=== PATIENT | female | born 1935 | race Caucasian/White ===

== ENCOUNTER 2017-07-16 16:29 | Inpatient (IN) | payer MEDICARE, OTHER ==
[~2017-07-16] VITALS: Ht 160 cm; Wt 74.8 kg
[~2017-07-16 16:29] MED LIST: ACE3 PO; ACE325 PO; AMLO-1 PO; AMLO2.5T74 PO; ASPI-1471 PO; ASPI-715 PO; ASPI81TA32 PO; ATOR40TA69 PO; AUG875 PO; CA C1TAB10 PO; CALC200 PO; CALC600T72 PO; CEPH-13 PO; CEPH250C37 PO; CHOL10005 PO; CIPR-344 PO; CIPR-345 PO; FISH OIL1 CAP PO; FLU IM; FLU45SYR17 IM; FOL1 PO; FURO-45 PO; FURO-47 PO; GLUC-198 PO; GLUC500C29 PO; HYDR-385 PO; HYDR12.558 PO; LOR5 PO; MULT-977 PO; NIT4 SL; NITR-1 PO; NITR-105 PO; PNEU0.5D3 IM; POTA20TA10 PO; RIVA15TA PO; RIVA20TA PO; ROS10 PO; SIMV-54 PO; SPIR1TAB26 PO; SPIR1TAB28 PO; SPIR25TA78 PO; SULF-198 PO; TOLT2CAP7 PO; VESICARE; WARF-12 PO; [UNRECOGNIZED DRUG - CODE] PO
--- NOTE | 2017-07-16 17:21 | ER Report ---
History and Physical Time Seen By MD: 17:00 Hx. of Stated Complaint: PATIENT HAS BEEN GETTING INCREASINGLY CONFUSED AND FORGETFUL AND WEAK (ORESTES GRAY MD) Time Seen By MD: 16:52 (LAWRENCE ISRAEL MD) HPI/ROS CC: Confusion HPI: 82-year-old female with a past medical history of hyperparathyroidism, hypertension, lower leg edema chronic, recurrent UTIs, DVTs, on Zeralto. Patient presents to the emergency department POV from the [place] [facility] for increased confusion over the last 24-48 hours. She also had a recent fall approximately 1 week ago. She is somewhat a poor historian but her granddaughter has related that she is had increased confusion but no nausea vomiting, chest pain chest pressure, she's been eating and continues to ambulate with her walker. Patient denies any pain at this time. It is hard to get any more information from the patient. ROS: 12 point review of systems essentially negative other than what's mentioned in history of present illness. NURSES AND OLD MEDICAL RECORDS: Reviewed PMH: Reviewed SURGICAL HX: Reviewed FAMILY HX: Noncontributory SOCIAL HX: Patient was in a [place] [facility] as she denies any smoking alcohol or illicit drugs. VITAL SIGNS: Reviewed CONSTITUTIONAL: 82-year-old female in minimal distress but is slightly confused. She does not know the date or place. PHYSICAL EXAM: HEENT: Pupils equal round reactive to light and accommodate, EOMI, tympanic membranes pearly white umbo present with good light reflex. Lips dry mucous membranes moist gums nonbleeding uvula midline and rises equally with phonation, oropharynx noninjected, teeth intact. NECK: Neck supple, thyroid not appreciated, anterior and posterior cervical lymphadenopathy not appreciated. Trachea midline and rises equally with phonation. CARDIAC: S1-S2 irregularly irregular rate rhythm no murmurs rubs or gallops. LUNGS: Lungs clear bilaterally posteriorly in all y[place]. Good air movement. ABDOMEN: Abdomen soft, nondistended, bowel sounds active in all 4 quadrants, no bruits noted, no CVA tenderness. MUSCULOSKELETAL: Strength 5 out of 5 x 4 extremities, no deformities noted. NEUROLOGIC: Patient alert and oriented to self but not date or place. (ORESTES GRAY MD) HPI/ROS CHIEF COMPLAINT: Fall HISTORY OF PRESENT ILLNESS: 2 days ago, associated with increased weakness and lightheadedness. No black or bloody stools. No urinary symptoms. Denies chest pain or shortness of breath. REVIEW OF SYSTEMS: Constitutional: No fever, no chills. Eyes: No discharge. ENT: No sore throat. Cardiovascular: No chest pain, no palpitations. Respiratory: No cough, no shortness of breath. Gastrointestinal: No abdominal pain, no vomiting. Genitourinary: No hematuria. Musculoskeletal: No back pain. Skin: No rashes. Neurological: No headache. (LAWRENCE ISRAEL MD) Allergies: Coded Allergies: No Known Allergies (Verified Allergy, Mild, 11/06/10) Home Meds Active Scripts Atorvastatin Calcium (ATORVASTATIN CALCIUM) 40 Mg Tablet, 1 TAB PO QDAY, #9999 TAB Prov:MARIANGEL DOLL MD 11/11/16 Spironolact/Hydrochlorothiazid (SPIRONOLACTONE-HCTZ 25-25 TAB) 1 Each Tablet, 1 TAB PO QAM, #90 TAB 3 Refills Prov:MARIANGEL DOLL MD 08/19/16 Rivaroxaban 20 Mg (XARELTO 20 MG) 20 Mg Tablet, 1 TAB PO DAILY, #90 TAB 3 Refills Prov:MARIANGEL DOLL MD 08/19/16 Sulfamethoxazole/Trimet 800-160 Mg Tab (BACTRIM DS TABLET) 1 Each Tablet, 1 TAB PO 3XW, #36 TAB 3 Refills Take three times a week. Prov:MARIANGEL DOLL MD 08/19/16 Reported Medications Cholecalciferol (Vitamin D3) (VITAMIN D3) 1,000 Unit Tablet, 1000 UNIT PO QDAY 05/19/14 Ca Carbonate/Vitamin D3/Vit K (Citracal Soft Chew) 1 Each Tab.chew, 1 TAB PO QDAY 05/19/14 Hx Smoking: Yes (55 yrs ago) Smoking Status: Never Smoker Hx Substance Use Disorder: No Hx Alcohol Use: No (ORESTES GRAY MD) Constitutional Vital Sign - Last 24 Hours 07/16/17 07/16/17 07/16/17 07/16/17 16:52 16:54 16:59 17:00 Temp 97.8 Pulse 70 67 Resp 17 B/P (MAP) 131/53 (79) 131/53 132/40 (70) Pulse Ox 96 96 O2 Delivery Room Air 07/16/17 07/16/17 07/16/1717 17:29 17:30 17:59 18:00 Pulse 67 69 B/P (MAP) 132/43 (72) 114/40 (64) Pulse Ox 97 96 07/16/17 07/16/17 07/16/17 07/16/17 18:05 18:30 18:35 18:45 Pulse 70 65 65 Resp 16 B/P (MAP) 117/41 (66) Pulse Ox 94 97 07/16/17 07/16/17 07/16/17 19:00 19:15 19:30 Pulse 64 66 71 Resp 15 15 11 B/P (MAP) 105/40 (61) 120/42 (68) Pulse Ox 99 100 95 (LAWRENCE ISRAEL MD) Physical Exam General Appearance: The patient is alert, has no immediate need for airway protection and no signs of toxicity. No acute distress Eyes: Pupils equal and round no pallor or injection. ENT, Mouth: Mucous membranes are moist. Respiratory: There are no retractions, lungs are clear to auscultation. Cardiovascular: Regular rate and rhythm. No murmurs gallops or rubs Gastrointestinal: Abdomen is soft and non tender, no masses, bowel sounds normal. Neurological: Slow responses otherwise normal cranial nerves and motor function. Skin: Warm and dry, no rashes. Musculoskeletal: Neck is supple non tender. Extremities are nontender, nonswollen and have full range of motion. Differential diagnosis includes TX pneumonia GI bleed stroke. This is an incomplete list of diagnoses (LAWRENCE ISRAEL MD) Medical Decision Making Data Points Result Diagram: 07/17/17 0633 07/17/17 0633 Laboratory Hematology Test 07/16/17 17:31 07/16/17 17:47 07/16/17 19:09 Prothrombin Time 15.1 seconds (12.0-14.4) Prothromb Time International Ratio 1.18 Activated Partial Thromboplast Time 22 seconds (23-35) Magnesium Level 2.0 mg/dl (1.7-2.2) Urine Color Varsha Urine Clarity Cloudy Urine pH 6.0 pH (4.8-9.5) Urine Specific [place] 1.019 Urine Protein 100 mg/dL (NEGATIVE) Urine Glucose (UA) Negative mg/dL (NEGATIVE) Urine Ketones 20 mg/dL (NEGATIVE) Urine Blood Moderate (NEGATIVE) Urine Nitrite Negative (NEGATIVE) Urine Bilirubin Negative (NEGATIVE) Urine Urobilinogen Negative mg/dL (0.2-1.9) Urine Leukocyte Esterase Large (NEGATIVE) Urine RBC 75 /HPF (0-2/HPF) Urine WBC 1368 /HPF (0-5/HPF) Urine WBC Clumps Many /HPF Urine Squamous Epithelial Cells None /LPF (NONE-FEW) Urine Bacteria Few /HPF (NONE-FEW) Urine Mucus None /HPF (NONE-FEW) Stool Occult Blood (IFOB) Negative (NEGATIVE) Chemistry Test 07/16/17 17:31 07/16/17 17:47 07/16/17 19:09 Prothrombin Time 15.1 seconds (12.0-14.4) Prothromb Time International Ratio 1.18 Activated Partial Thromboplast Time 22 seconds (23-35) Magnesium Level 2.0 mg/dl (1.7-2.2) Urine Color Varsha Urine Clarity Cloudy Urine pH 6.0 pH (4.8-9.5) Urine Specific [place] 1.019 Urine Protein 100 mg/dL (NEGATIVE) Urine Glucose (UA) Negative mg/dL (NEGATIVE) Urine Ketones 20 mg/dL (NEGATIVE) Urine Blood Moderate (NEGATIVE) Urine Nitrite Negative (NEGATIVE) Urine Bilirubin Negative (NEGATIVE) Urine Urobilinogen Negative mg/dL (0.2-1.9) Urine Leukocyte Esterase Large (NEGATIVE) Urine RBC 75 /HPF (0-2/HPF) Urine WBC 1368 /HPF (0-5/HPF) Urine WBC Clumps Many /HPF Urine Squamous Epithelial Cells None /LPF (NONE-FEW) Urine Bacteria Few /HPF (NONE-FEW) Urine Mucus None /HPF (NONE-FEW) Stool Occult Blood (IFOB) Negative (NEGATIVE) Coagulation Test 07/16/17 17:31 Prothrombin Time 15.1 seconds Prothromb Time International Ratio 1.18 Activated Partial Thromboplast Time 22 seconds Urinalysis Test 07/16/17 17:47 Urine Color Varsha Urine Clarity Cloudy Urine pH 6.0 pH (4.8-9.5) Urine Specific [place] 1.019 Urine Protein 100 mg/dL (NEGATIVE) Urine Glucose (UA) Negative mg/dL (NEGATIVE) Urine Ketones 20 mg/dL (NEGATIVE) Urine Blood Moderate (NEGATIVE) Urine Nitrite Negative (NEGATIVE) Urine Bilirubin Negative (NEGATIVE) Urine Urobilinogen Negative mg/dL (0.2-1.9) Urine Leukocyte Esterase Large (NEGATIVE) Urine RBC 75 /HPF (0-2/HPF) Urine WBC 1368 /HPF (0-5/HPF) Urine WBC Clumps Many /HPF Urine Squamous Epithelial Cells None /LPF (NONE-FEW) Urine Bacteria Few /HPF (NONE-FEW) Urine Mucus None /HPF (NONE-FEW) (LAWRENCE ISRAEL MD) Microbiology Microbiology Date/Time Source Procedure Growth Status 07/16/17 00:00 Cath Urine Urine Culture - Preliminary NO GROWTH SO FAR, SET LATE. REINCUBATED Resulted (LAWRENCE ISRAEL MD) EKG/Imaging EKG Interpretation Sinus rhythm with occasional consecutive PVCs and possible premature atrial complexes with aberrant conduction. Possible anterior infarct age undetermined, ventricular rate 85 bpm, NJ interval 154 ms, QRS duration milliseconds, QT 408 ms, QTC 485 ms. Previous ECG on 09/19/2013 was normal sinus rhythm rate of 60 bpm. QTc was 428 at that time. (ORESTES GRAY MD) ED Course/Re-evaluation Turned Over Report given to Dr. Israel (ORESTES GRAY MD) ED Course interval decrease in H/H, guiac sent, minimal sample obtained. Family reports pt is on chronic suppressive therapy for recurrent UTIs (bactrim), pt denies sx UTI but daughter reports smell and cloudy urine; + LE and bacteria. Hospitalist paged to discuss. Dr. Beltran here to see patient 1917. Re-evaluation vital stable, awake and talking; results discussed. Decision to Disposition Date: Jul 16, 2017 Decision to Disposition Time: 21:54 (LAWRENCE ISRAEL MD) Depart Departure Latest Vital Signs Vital Signs Date Time Temp Pulse Resp B/P (MAP) Pulse Ox O2 Delivery O2 Flow Rate FiO2 07/16/17 19:30 71 11 120/42 (68) 95 07/16/17 16:54 97.8 Room Air (LAWRENCE ISRAEL MD) Impression: Primary Impression: Confusion Additional Impression: Anemia Condition: Improved Disposition: Admitted from ER Referrals: MARIANGEL DOLL MD (PCP) Problem Qualifiers ORESTES GRAY MD Jul 16, 2017 17:21 LAWRENCE ISRAEL MD Jul 16, 2017 19:18
--- NOTE | 2017-07-16 17:26 | EKG ---
FACILITY: [facility] PATIENT NAME: RICKEY RUANO : [id number] MR: [id number] V: [id number] EXAM DATE: ORDERING PHYSICIAN: ORESTES GRAY TECHNOLOGIST: DAMON Parks Reason : confusion Blood Pressure : / mmHG Vent. Rate : 085 BPM Atrial Rate : 065 BPM P-R Int : 154 ms QRS Dur : 100 ms QT Int : 408 ms P-R-T Axes : 072 042 006 degrees QTc Int : 485 ms Multiple atrial foci vs NSR with many PVC Cannot rule out Anterior infarct , age undetermined Abnormal ECG When compared with ECG of 19-SEP-2013 08:11, Now with multiple atrial foci vs PVC's Nonspecific T wave abnormality now evident in Inferior leads Nonspecific T wave abnormality now evident in Lateral leads QT has lengthened Confirmed by BROOKE MARLEY ([id number]) on 07/16/2017 8:19:31 PM Referred By: Confirmed By:BROOKE MARLEY
[2017-07-16 18:05] LABS: INR 1.18
[2017-07-16 18:08] LABS: PLATELET COUNT, AUTOMATED 234 K/uL (150-450)
--- NOTE | 2017-07-16 18:46 | RADIOLOGY IMAGING REPORT ---
[facility] PATIENT NAME: Acacia Mchugh : 1935 MR: [id number] V: [id number] EXAM DATE: ORDERING PHYSICIAN: ORESTES GRAY TECHNOLOGIST: Location: [facility] Patient: Acacia Mchugh : 1935 Visit/Account:[id number] Date of Sevice: 07/16/2017 EXAMINATION: CT HEAD WITHOUT CONTRAST COMPARISON: None available HISTORY: confusion PROCEDURE: Noncontrast CT from the vertex through the skull base. One of the following dose optimizat ion techniques was utilized in the performance of this exam: Automated exposure control; adjustment o f the mA and/or kV according to the patient's size; or use of an iterative reconstruction technique. Specific details can be referenced in the facility's radiology CT exam operational policy. FINDINGS: Brain volume: Mild global volume loss. Hemorrhage/extra-axial fluid: No intracranial hemorrhage or extra-axial fluid collection. Mass effect/midline shift/edema: None. Ischemia: [place]-white differentiation is preserved. Ventricles and basal cisterns: Ventricle size is within normal limits. Basal cisterns are open. Posterior fossa: Negative. Vessels: Carotid atherosclerosis. Calvarium, skull base, and scalp: Negative. Visualized sinuses and orbits: Visualized paranasal sinuses are clear. Visualized globes are unremark able. IMPRESSION: 1. No intracranial hemorrhage or mass effect. 2. No CT findings of acute ischemia. Report Dictated By: Octavio Maguire MD at 07/16/2017 6:36 PM Report E-Signed By: Octavio Maguire MD at 07/16/2017 6:41 PM WSN:[id number]
--- NOTE | 2017-07-16 20:05 | RADIOLOGY IMAGING REPORT ---
[facility] PATIENT NAME: Acacia Mchugh : 1935 MR: [id number] V: [id number] EXAM DATE: ORDERING PHYSICIAN: ORESTES GRAY TECHNOLOGIST: Location: [facility] Patient: Acacia Mchugh : 1935 Visit/Account:[id number] Date of Sevice: 07/16/2017 Examination: CHEST PA AND LAT Comparison: 11/06/2010 History: Chest Pain Findings: Cardiac and hilar contour size is within normal limits. Dual-lead pacemaker. No consolidati on, nodule, or peribronchial inflammation. No pneumothorax, edema, or effusion. Osseous structures ar e demineralized with exaggeration of the normal thoracic kyphosis. No definite acute osseous abnormal ity is identified although evaluation is somewhat limited by the degree of demineralization. IMPRESSION: No findings of acute cardiopulmonary disease. Report Dictated By: Octavio Maguire MD at 07/16/2017 7:57 PM Report E-Signed By: Octavio Maguire MD at 07/16/2017 8:00 PM WSN:[id number]
[2017-07-16 20:13] VITALS: BP 123/51
[2017-07-16] MEDS ORDERED: NS(*) 0.9% 1000 ML BAG 1,000 ML IV PRN (21:18)
[2017-07-16] MEDS ORDERED: INFLUENZA VIRUS VAC 0.5 ML SYR IM ONLY ONE (21:20)
[2017-07-16] MEDS ORDERED: RIVAROXABAN 10 MG TAB PO ONE (21:20)
--- NOTE | 2017-07-16 21:54 | History & Physical ---
History of Present Illness History of Present Illness 82yo female with a h/o chronic UTI on suppressive Bactrim who was brought to the ER for increased confusion and weakness. She was in her normal state of health about 4 days ago. Then she started to have more difficulty ambulating and had a fall a couple of days ago. Family has noted increased confusion and hallucinations. She thought she spoke with her son, but he reports that she didn't. Staff from [facility] have found her outside, but she doesn't recollect the events. She has more swelling in her legs than usual, but reports to sleeping sitting up in her couch for the last couple of years. She was chilled today. No dysuria. No reported cough or SOB. History Problems: (1) History of pacemaker Status: Chronic (2) Renal infarct Status: Resolved (3) OAB (overactive bladder) Status: Chronic (4) Recurrent urinary tract infection Status: Chronic (5) Deep vein thrombosis Status: Resolved (6) Hypertension, benign Status: Chronic (7) Primary hyperparathyroidism Status: Chronic (8) Stroke Status: Resolved Home Meds Active Scripts Atorvastatin Calcium (ATORVASTATIN CALCIUM) 40 Mg Tablet, 1 TAB PO QDAY, #9999 TAB Prov:MARIANGEL DOLL MD 11/11/16 Spironolact/Hydrochlorothiazid (SPIRONOLACTONE-HCTZ 25-25 TAB) 1 Each Tablet, 1 TAB PO QAM, #90 TAB 3 Refills Prov:MARIANGEL DOLL MD 08/19/16 Rivaroxaban 20 Mg (XARELTO 20 MG) 20 Mg Tablet, 1 TAB PO DAILY, #90 TAB 3 Refills Prov:MARIANGEL DOLL MD 08/19/16 Sulfamethoxazole/Trimet 800-160 Mg Tab (BACTRIM DS TABLET) 1 Each Tablet, 1 TAB PO 3XW, #36 TAB 3 Refills Take three times a week. Prov:MARIANGEL DOLL MD 08/19/16 Reported Medications Cholecalciferol (Vitamin D3) (VITAMIN D3) 1,000 Unit Tablet, 1000 UNIT PO QDAY 05/19/14 Ca Carbonate/Vitamin D3/Vit K (Citracal Soft Chew) 1 Each Tab.chew, 1 TAB PO QDAY 05/19/14 Allergies: Coded Allergies: No Known Allergies (Verified Allergy, Mild, 11/06/10) Patient History: FH: CVA (cerebrovascular accident) MOTHER, , Age:67 FH: KS (myocardial infarction) BROTHER, , Age:60 Hx Smoking: No Smoking Status: Never Smoker Caffeine/Cups Per Day: 0 Hx Alcohol Use: No Hx Substance Use Disorder: No Social Drug Use: Never Review of Systems All Systems Reviewed/Normal: Yes, Except as Noted Exam Vital Signs Vital Signs Date Time Temp Pulse Resp B/P (MAP) Pulse Ox O2 Delivery O2 Flow Rate FiO2 07/16/17 20:21 Room Air 07/16/17 20:13 97.7 65 123/51 (75) 95 07/16/17 19:52 17 General Appearance: Alert, Awake, No Acute Distress Neuro: No Gross deficits (CN 2-12 intact, equal UE and LE strength, normal sensation to light touch in LE) ENT: Moist Mucous Membranes Cardiovascular: Regular Rate and Rhythm Respiratory: Clear to Auscultation GI: Abd Soft and Non-Tender Extremities: Edema (2+ pitting to mid shins) Integumentary: No Jaundice, No Cyanosis Medical Decision Making Data Points Result Diagram: 07/16/17 1802 07/16/17 1731 Item Value Date Time Blood Urea Nitrogen 21 mg/dl H 07/16/17 1731 Creatinine 0.90 mg/dl 07/16/17 1731 Blood Urea Nitrogen 24 mg/dl H 08/11/16 0816 Creatinine 0.90 mg/dl 08/11/16 0816 Total Bilirubin 1.5 mg/dl H 07/16/17 1731 Aspartate Amino Transf (AST/SGOT) 41 U/L H 07/16/17 1731 Alanine Aminotransferase (ALT/SGPT) 34 U/L 07/16/17 1731 Alkaline Phosphatase 57 U/L 07/16/17 1731 Troponin I 0.022 ng/ml 07/16/17 1731 B-Type Natriuretic Peptide 139 pg/ml H 07/16/17 1731 Total Protein 6.4 gm/dl 07/16/17 1731 Albumin 3.4 g/dl L 07/16/17 1731 Magnesium Level 2.0 mg/dl 07/16/17 1731 Prothromb Time International Ratio 1.18 07/16/17 1731 White Blood Count 3.0 k/uL L 08/11/16 0816 White Blood Count 3.1 k/uL L 07/16/17 1802 Hemoglobin 9.6 g/dL L 07/16/17 1802 Hemoglobin 14.2 g/dL 08/11/16 0816 Platelet Count 89 K/uL L 08/11/16 0816 Platelet Count 234 K/uL 07/16/17 1802 Stool Occult Blood (IFOB) Negative 07/16/17 1909 Urine Leukocyte Esterase Large H 07/16/17 1747 Urine RBC 75 /HPF 07/16/17 1747 Urine WBC 1368 /HPF 07/16/17 1747 Urine Squamous Epithelial Cells None /LPF 07/16/17 1747 Urine Bacteria Few /HPF 07/16/17 1747 Urine Ketones 20 mg/dL H 07/16/17 1747 EKG / Imaging EKG Interpretation Vent. Rate : 085 BPM Atrial Rate : 065 BPM P-R Int : 154 ms QRS Dur : 100 ms QT Int : 408 ms P-R-T Axes : 072 042 006 degrees QTc Int : 485 ms Multiple atrial foci vs NSR with many PVC Cannot rule out Anterior infarct , age undetermined Abnormal ECG When compared with ECG of 19-SEP-2013 08:11, Now with multiple atrial foci vs PVC's Nonspecific T wave abnormality now evident in Inferior leads Nonspecific T wave abnormality now evident in Lateral leads QT has lengthened Confirmed by BROOKE MARLEY ([id number]) on 07/16/2017 8:19:[address] - 1. No intracranial hemorrhage or mass effect. 2. No CT findings of acute ischemia. CXR - No findings of acute cardiopulmonary disease. Assessment and Plan Problems: (1) UTI (urinary tract infection) Status: Acute Assessment & Plan: She presented with a couple days of progressive weakness and confusion. UA is consistent with pyuria. She is afebrile with stable BP/ P. Will start Levofloxacin based on previous cultures. Urine culture pending. Recheck total bilirubin and AST (both were slightly elevated). (2) Weakness Status: Acute Assessment & Plan: Likely, secondary to the UTI and anemia. Will ask OT/PT to evaluate. Recheck Troponin and BNP tomorrow. (3) Confusion Status: Acute Assessment & Plan: Likely, secondary to the UTI. No evidence of a stroke by exam or CT of the head. Will follow. (4) Anemia Status: Acute Assessment & Plan: Hgb decreased from a normal value about a year ago. MCV elevated. She is chronically anticoagulated. Heme negative on stool. Iron, B12, Folate and reticulocyte count tomorrow. No reported BRBPR or melena. (5) Edema Onset Date: 10/26/2014 Status: Chronic Assessment & Plan: Chronic. Possibly worse, but she sleeps with her legs down. Will continue diuretics and elevate legs. Follow exam. (6) Chronic anticoagulation Status: Chronic Assessment & Plan: Secondary to a DVT and a h/o atrial fibrillation. She is on Xarelto chronically, so will continue. She appears to be in a multi atrial foci rhythm by ECG. Rate controlled. She has a pacemaker. (7) Recurrent urinary tract infection Status: Chronic Assessment & Plan: Hold suppressive Bactrim. Copies to: CLARISSA DOMINIQUE MD Venous Thromboembolism Antithrombotics Is Pt On Any Antithrombotics?: Yes Exam Sepsis Risk: No Definite Risk BROOKE MARLEY MD Jul 16, 2017 21:54
[2017-07-16] MEDS: LEVOFLOXACIN/D5W 750 MG/150 ML 150 ML IVPB SCH (22:01)
[2017-07-16 23:21] VITALS: BP 135/60
[2017-07-17] VITALS (7 sets, daily range): BP systolic 107–151; BP diastolic 51–90; Ht 160 cm; Wt 74.8 kg
[2017-07-17 07:08] LABS: PLATELET COUNT, AUTOMATED 190 K/uL (150-450)
[2017-07-17] MEDS: SPIRONOLACTONE 25 MG TAB PO SCH (08:26)
[2017-07-17] MEDS ORDERED: HYDROCHLOROTHIAZIDE 25 MG TAB PO SCH (09:00)
[2017-07-17] MEDS ORDERED: ONDANSETRON 4 MG/2 ML VIAL IVP PRN (13:50)
--- NOTE | 2017-07-17 18:17 | Hospitalist Progress Note ---
Subjective Progress Notes Subjective 07/16: Mrs. Mchugh is an 82yo female with a h/o chronic UTI on suppressive Bactrim, DVT, A.Fib s/p PPM who was brought to the ER for increased confusion and weakness. She was in her normal state of health about 4 days ago. Then she started to have more difficulty ambulating and had a fall a couple of days ago. Family has noted increased confusion and hallucinations. She thought she spoke with her son, but he reports that she didn't. Staff from [facility] have found her outside, but she doesn't recollect the events. She has more swelling in her legs than usual, but reports to sleeping sitting up in her couch for the last couple of years. She was chilled today. No dysuria. No reported cough or SOB. 07/17: She is feeling somewhat better but still has LE edema. Her WBC is 2.0 and Hb is 8.3. She was on Bactrim and HCTZ and those can cause BMS. I discussed the case with her family at length. Patient Complains of: Neurological: Weakness, No: Syncope, Confusion, Dizziness Cardiovascular: No: Chest Pain, Palpitations Respiratory: Cough, Shortness of Breath, No: Congestion Gastrointestinal: No Nausea, No Vomiting, No Flatus, No Bowel Movement Genitourinary: Dysuria, No Hematuria Musculoskeletal: Impaired Mobility, No: Pain, Sprain, Strain Physical Exam Vital Signs Date Time Temp Pulse Resp B/P (MAP) Pulse Ox O2 Delivery O2 Flow Rate FiO2 07/17/17 14:05 97.8 70 20 137/52 (80) 92 Room Air Intake and Output 07/18/17 07:00 Intake Total 190 ml Balance 190 ml Intake Oral 190 ml # Voids 3 General Appearance: Alert, Awake, No Acute Distress, Afebrile Neuro: No Gross deficits Eyes: PERRLA ENT: Normal Cardiovascular: Other (pacer rhythm) Extremities: Warm, Edema Integumentary: Generalized Fragile Skin Psych: Alert & Oriented X3, Appropriate Mood & Affect Result Diagram: 07/17/1763207/17/17632 Monitor Interpretation: Atrial Fibrillation Assessment and Plan Problems: (1) UTI (urinary tract infection) Status: Acute Assessment & Plan: She presented with a couple days of progressive weakness and confusion. UA is consistent with pyuria. She is afebrile with stable BP/ P. Will start Levofloxacin based on previous cultures. Urine culture pending. Recheck total bilirubin and AST (both were slightly elevated). 07/17: I will continue her Levaquin and check her kidney function and T.Bili in am. Her UCX is still pending. (2) Weakness Status: Acute Assessment & Plan: Likely, secondary to the UTI and anemia. Will ask OT/PT to evaluate. Recheck Troponin and BNP tomorrow. (3) Confusion Status: Acute Assessment & Plan: Likely, secondary to the UTI. No evidence of a stroke by exam or CT of the head. Will follow. (4) Anemia Status: Acute Assessment & Plan: Hgb decreased from a normal value about a year ago. MCV elevated. She is chronically anticoagulated. Heme negative on stool. Iron, B12, Folate and reticulocyte count tomorrow. No reported BRBPR or melena. 07/17: I will check her VB12 and Folate levels. (5) Edema Onset Date: 10/26/2014 Status: Chronic Assessment & Plan: Chronic. Possibly worse, but she sleeps with her legs down. Will continue diuretics and elevate legs. Follow exam. 07/17: I will stop her HCTZ and use Lasix 40mg po q am and keep the Aldactone. (6) Chronic anticoagulation Status: Chronic Assessment & Plan: Secondary to a DVT and a h/o atrial fibrillation. She is on Xarelto chronically, so will continue. She appears to be in a multi atrial foci rhythm by ECG. Rate controlled. She has a pacemaker. (7) Recurrent urinary tract infection Status: Chronic Assessment & Plan: Hold suppressive Bactrim. Time Spent on Plan of Care: > 30 min Copies to: MARIANGEL DOLL MD; CLARISSA DOMINIQUE MD Exam Sepsis Risk: No Definite Risk ALEJANDRA TORRES MD Jul 17, 2017 18:17
[2017-07-17] MEDS: ATORVASTATIN 40 MG TAB PO SCH (20:29)
[2017-07-18 03:33] VITALS: BP 121/77
[2017-07-18 06:18] LABS: PLATELET COUNT, AUTOMATED 178 K/uL (150-450)
[2017-07-18 07:24] VITALS: BP 144/67
[2017-07-18] MEDS: SPIRONOLACTONE 25 MG TAB PO SCH (09:00)
[2017-07-18] MEDS: FUROSEMIDE 40 MG TAB PO SCH ×2 (09:27→09:32)
[2017-07-18 11:58] VITALS: BP 137/60
[2017-07-18 14:42] VITALS: BP 118/40
--- NOTE | 2017-07-18 16:23 | RADIOLOGY IMAGING REPORT ---
FACILITY: [facility] [place] PATIENT NAME: Acacia Mchugh : 1935 MR: [id number] V: [id number] EXAM DATE: ORDERING PHYSICIAN: ALEJANDRA TORRES TECHNOLOGIST: Location: [facility] [place] Patient: Acacia Mchugh : 1935 Visit/Account:[id number] Date of Sevice: 07/18/2017 HIPS BILATERAL Indication: Bilateral hip pain. Comparison: None Available Findings: AP view of the pelvis. Frog-leg views of the right and left hip. Demineralized bones. No definite acute fracture, dislocation, or radiopaque foreign body. Normal alig nment. 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 Degenerative disc disease in the lower lumbar spine. IMPRESSION: Demineralized bones with no definite acute fracture. Report Dictated By: Markel Pablo MD at 07/18/2017 4:17 PM Report E-Signed By: Markel Pablo MD at 07/18/2017 4:19 PM WSN:[id number]
--- NOTE | 2017-07-18 19:52 | Hospitalist Progress Note ---
Subjective Progress Notes Subjective Mrs. Mchugh is an 82yo female with a h/o chronic UTI on suppressive Bactrim, DVT, A.Fib s/p PPM who was brought to the ER for increased confusion and weakness. She was in her normal state of health about 4 days ago. Then she started to have more difficulty ambulating and had a fall a couple of days ago. Family has noted increased confusion and hallucinations. She thought she spoke with her son, but he reports that she didn't. Staff from [facility] have found her outside, but she doesn't recollect the events. She has more swelling in her legs than usual, but reports to sleeping sitting up in her couch for the last couple of years. She was chilled today. No dysuria. No reported cough or SOB. 07/17: She is feeling somewhat better but still has LE edema. Her WBC is 2.0 and Hb is 8.3. She was on Bactrim and HCTZ and those can cause BMS. I discussed the case with her family at length. 07/18: She is still Neutropenic and anemic possibly due to the medications, Bactrim and HCTZ. Both are on hold. She feels better and has less legs swelling. Patient Complains of: Neurological: No: Confusion, Weakness, Dizziness Cardiovascular: No: Chest Pain, Palpitations Respiratory: No: Cough, Congestion, Shortness of Breath, Wheezing Gastrointestinal: No Nausea, No Vomiting, No Flatus Genitourinary: No Dysuria, No Hematuria Musculoskeletal: Impaired Mobility, No: Pain, Sprain, Strain Physical Exam Vital Signs Date Time Temp Pulse Resp B/P (MAP) Pulse Ox O2 Delivery O2 Flow Rate FiO2 07/18/17 16:04 68 07/18/17 14:42 97.6 16 118/40 (66) 92 Room Air 07/18/17 09:04 0.5 Intake and Output 07/19/17 07:00 Intake Total 210 ml Balance 210 ml Intake Oral 210 ml # Voids 3 General Appearance: Alert, Awake, No Acute Distress, Afebrile Neuro: No Gross deficits Eyes: PERRLA ENT: Normal Cardiovascular: Normal Rhythm & Peripheral Pulses Respiratory: No Respiratory Distress GI: Soft and Non-Tender (obese) Extremities: Edema Psych: Alert & Oriented X3, Appropriate Mood & Affect Result Diagram: 07/18/17 0551 07/18/17 0551 Monitor Interpretation: Atrial Fibrillation Assessment and Plan Problems: (1) UTI (urinary tract infection) Status: Acute Assessment & Plan: She presented with a couple days of progressive weakness and confusion. UA is consistent with pyuria. She is afebrile with stable BP/ P. Will start Levofloxacin based on previous cultures. Urine culture pending. Recheck total bilirubin and AST (both were slightly elevated). 07/17: I will continue her Levaquin and check her kidney function and T.Bili in am. Her UCX is still pending. 07/18: I will continue her current management and get morning blood work and CBC (2) Weakness Status: Resolved Assessment & Plan: Likely, secondary to the UTI and anemia. Will ask OT/PT to evaluate. Recheck Troponin and BNP tomorrow. (3) Confusion Status: Resolved Assessment & Plan: Likely, secondary to the UTI. No evidence of a stroke by exam or CT of the head. Will follow. (4) Anemia Status: Acute Assessment & Plan: Hgb decreased from a normal value about a year ago. MCV elevated. She is chronically anticoagulated. Heme negative on stool. Iron, B12, Folate and reticulocyte count tomorrow. No reported BRBPR or melena. 07/17: I will check her VB12 and Folate levels. 07/18 Her Folate and Vit.B12 are still pending and her HCTZ and Bactrim are on hold. (5) Edema Onset Date: 10/26/2014 Status: Chronic Assessment & Plan: Chronic. Possibly worse, but she sleeps with her legs down. Will continue diuretics and elevate legs. Follow exam. 07/17: I will stop her HCTZ and use Lasix 40mg po q am and keep the Aldactone. (6) Chronic anticoagulation Status: Chronic Assessment & Plan: Secondary to a DVT and a h/o atrial fibrillation. She is on Xarelto chronically, so will continue. She appears to be in a multi atrial foci rhythm by ECG. Rate controlled. She has a pacemaker. (7) Recurrent urinary tract infection Status: Chronic Assessment & Plan: Hold suppressive Bactrim. Time Spent on Plan of Care: < 30 min Copies to: MARIANGEL DOLL MD Exam Sepsis Risk: No Definite Risk ALEJANDRA TORRES MD Jul 18, 2017 19:52
[2017-07-18 20:02] VITALS: BP 140/59
[2017-07-18] MEDS: ATORVASTATIN 40 MG TAB PO SCH (21:32)
[2017-07-18] MEDS: LEVOFLOXACIN/D5W 750 MG/150 ML 150 ML IVPB SCH (21:33)
[2017-07-18 23:19] VITALS: BP 106/46
[2017-07-19 03:13] VITALS: BP 130/53
[2017-07-19 06:12] LABS: PLATELET COUNT, AUTOMATED 147 K/uL (150-450)
[2017-07-19 06:59] VITALS: BP 137/60
[2017-07-19] MEDS: SPIRONOLACTONE 25 MG TAB PO SCH (08:54)
[2017-07-19] MEDS: FUROSEMIDE 40 MG TAB PO SCH (08:54)
[2017-07-19] MEDS ORDERED: LEVOFLOXACIN 500 MG TAB PO SCH ×2 (10:00→21:00)
[2017-07-19 12:42] VITALS: BP 132/53
[2017-07-19] MEDS: POTASSIUM CHL 20 MEQ TABCR PO SCH (12:44)
--- NOTE | 2017-07-19 13:30 | Hospitalist Progress Note ---
Subjective Progress Notes Subjective This patient was admitted for urinary infection. She had no acute changes overnight. Patient Complains of: Cardiovascular: No: Chest Pain Respiratory: No: Shortness of Breath Physical Exam Vital Signs Date Time Temp Pulse Resp B/P (MAP) Pulse Ox O2 Delivery O2 Flow Rate FiO2 07/19/17 12:42 98.2 64 16 132/53 (79) 95 Room Air 07/19/17 03:13 1.0 Intake and Output 07/20/17 07:00 Intake Total 120 ml Balance 120 ml Intake Oral 120 ml # Voids 1 # Bowel Movements 1 Cardiovascular: Regular Rate and Rhythm Respiratory: Clear to Auscultation Result Diagram: 07/19/17 0511 07/19/17 0511 Monitor Interpretation: Atrial Fibrillation Assessment and Plan Problems: (1) UTI (urinary tract infection) Status: Acute Assessment & Plan: Her urine did have large leukocytes and WBC clumps. She was on chronic suppressive treatment with Bactrim. This was stopped at admission and she was placed on levofloxacin. Her culture grew Aerococcus. Sensitivities are not available. (2) Weakness Status: Resolved Assessment & Plan: Physical and occupational therapy consults are ongoing. (3) Confusion Status: Resolved Assessment & Plan: A CT of the head was unremarkable. (4) Anemia Status: Acute Assessment & Plan: Her counts have been low, but stable. She has not required transfusion. (5) Edema Onset Date: 10/26/2014 Status: Chronic Assessment & Plan: She is on chronic treatment with spironolactone. Lasix has been added in place of her hydrochlorothiazide. (6) Chronic anticoagulation Status: Chronic Assessment & Plan: She is on chronic treatment with Xarelto for a history of DVT and atrial fibrillation. (7) Recurrent urinary tract infection Status: Chronic Assessment & Plan: Hold suppressive Bactrim. (8) Pancytopenia Assessment & Plan: This is believed to be secondary to chronic Bactrim. The Bactrim has been discontinued. Exam Sepsis Risk: No Definite Risk CLARISSA CIFUENTES DO Jul 19, 2017 13:30
[2017-07-19 14:57] VITALS: BP 124/83
[2017-07-19 19:55] VITALS: BP 135/56
[2017-07-19] MEDS: ATORVASTATIN 40 MG TAB PO SCH (21:39)
[2017-07-20 03:26] VITALS: BP 141/62
[2017-07-20 06:27] LABS: PLATELET COUNT, AUTOMATED 138 K/uL (150-450)
[2017-07-20 07:52] VITALS: BP 124/60
[2017-07-20] MEDS ORDERED: RIVAROXABAN 10 MG TAB PO SCH (09:00)
[2017-07-20] MEDS: POTASSIUM CHL 20 MEQ TABCR PO SCH (09:18)
[2017-07-20] MEDS: SPIRONOLACTONE 25 MG TAB PO SCH (09:18)
[2017-07-20] MEDS: FUROSEMIDE 40 MG TAB PO SCH (09:18)
[2017-07-20 11:43] VITALS: BP 139/61
--- NOTE | 2017-07-20 19:07 | Hospitalist Depart ---
Discharge Summary Reason for Hosp/Final Diag: (1) UTI (urinary tract infection) Status: Acute Hospital Course & Plan: Her urine did have large leukocytes and WBC clumps. She was on chronic suppressive treatment with Bactrim. This was stopped at admission and she was placed on levofloxacin. Her culture grew Aerococcus. Sensitivities were not available. She improved and was transferred to F for rehabilitation. (2) Weakness Status: Resolved Hospital Course & Plan: Physical and occupational therapy worked with the patient and recommended ongoing rehabilitation after discharge. The patient was transferred to ECF for ongoing therapy. (3) Confusion Status: Resolved Hospital Course & Plan: A CT of the head was unremarkable. The patient improved with treatment of her infection. (4) Anemia Status: Acute Hospital Course & Plan: Her counts were low, but remained stable. She did not required transfusion. (5) Edema Onset Date: 10/26/2014 Status: Chronic Hospital Course & Plan: She was on chronic treatment with spironolactone. Lasix was added in place of her hydrochlorothiazide. (6) Chronic anticoagulation Status: Chronic Hospital Course & Plan: She was continued on chronic treatment with Xarelto for a history of DVT and atrial fibrillation. (7) Recurrent urinary tract infection Status: Chronic Hospital Course & Plan: Bactrim was discontinued. (8) Pancytopenia Hospital Course & Plan: This was believed to be secondary to chronic Bactrim. The Bactrim was discontinued. It appeared however, from review of the EMR, that the pancytopenia may have predated the Bactrim. If her counts do not improve while on ECF and off of Bactrim, will need to have hematology see. Departure Weight (Pounds): 165 Weight (Ounces): 0.0 Result Diagram: 07/20/1754607/20/17546 Condition: Improved [facility] Follow Up For: PT For Strengthening Home Health RN Follow Up For: Nursing Assessment Home Health PACK PRESS OPERATOR Follow Up For: ADL Assistance Time Spent: < 30 min Discharge Instructions Home Meds Active Scripts Atorvastatin Calcium (ATORVASTATIN CALCIUM) 40 Mg Tablet, 1 TAB PO QDAY, #9999 TAB Prov:MARIANGEL DOLL MD 11/11/16 Spironolact/Hydrochlorothiazid (SPIRONOLACTONE-HCTZ 25-25 TAB) 1 Each Tablet, 1 TAB PO QAM, #90 TAB 3 Refills Prov:MARIANGEL DOLL MD 08/19/16 Rivaroxaban 20 Mg (XARELTO 20 MG) 20 Mg Tablet, 1 TAB PO DAILY, #90 TAB 3 Refills Prov:MARIANGEL DOLL MD 08/19/16 Reported Medications Cholecalciferol (Vitamin D3) (VITAMIN D3) 1,000 Unit Tablet, 1000 UNIT PO QDAY 05/19/14 Ca Carbonate/Vitamin D3/Vit K (Citracal Soft Chew) 1 Each Tab.chew, 1 TAB PO QDAY 05/19/14 Discontinued Scripts Sulfamethoxazole/Trimet 800-160 Mg Tab (BACTRIM DS TABLET) 1 Each Tablet, 1 TAB PO 3XW, #36 TAB 3 Refills Take three times a week. Prov:MARIANGEL DOLL MD 08/19/16 Diet: Regular Activity: As Tolerated Special Instructions: The hospitalist service will continue to follow the patient while on ECF. Copies to: MARIANGEL DOLL MD Venous Thromboembolism Antithrombotics Is Pt On Any Antithrombotics?: Yes SCAR MOSS MD Jul 20, 2017 19:07
== END 2017-07-20 13:20 | DRG 690 ==
LOC: ER 16:29 → MED 19:48
PROVIDERS: ADMIT Internal Medicine; ATTEND Internal Medicine
DX: N39.0 Urinary tract infection, site not specified (principal); D61.818 Other pancytopenia; I48.2 Chronic atrial fibrillation; I10 Essential (primary) hypertension; N32.81 Overactive bladder; B95.4 Other streptococcus as the cause of diseases classified elsewhere; R53.1 Weakness; E21.0 Primary hyperparathyroidism; R60.9 Edema, unspecified; W19.XXXA Unspecified fall, initial encounter; Y92.129 Unspecified place in nursing home as the place of occurrence of the external cause; Y99.8 Other external cause status; Z90.49 Acquired absence of other specified parts of digestive tract; Z90.710 Acquired absence of both cervix and uterus; Z79.01 Long term (current) use of anticoagulants; Z86.718 Personal history of other venous thrombosis and embolism; Z87.440 Personal history of urinary (tract) infections; Z87.891 Personal history of nicotine dependence; Z95.0 Presence of cardiac pacemaker
CPT/HCPCS: 36415; 70450; 71020; 73522; 81001; 82040; 82247; 82274; 82310; 82374; 82435; 82565; 82607; 82746; 82947; 83540; 83550; 83735; 83880; 84075; 84132; 84155; 84295; 84450; 84460; 84484; 84520; 85025; 85045; 85610; 85730; 87077; 87088; 93005; 97161; 97165; 99285; A4353; J1956; J2405; J7030

== ENCOUNTER 2017-07-20 13:20 | Inpatient (IN) | payer MEDICARE, OTHER ==
[~2017-07-20] VITALS: Ht 160 cm; Wt 66.2 kg
[2017-07-20 14:37] VITALS: BP 127/49
--- NOTE | 2017-07-20 15:08 | Consultant Pharmacy Review ---
Master Automotive Technician Review Medication Review Do All Mecications have a Diag: Yes Other General Cautions * Print * Help Title Potassium-Sparing Diuretics / Potassium Salts Risk Rating D: Consider therapy modification Summary Potassium Salts may enhance the hyperkalemic effect of Potassium- Sparing Diuretics. Severity Major Onset Delayed Reliability Rating Fair Patient Management Concomitant use of a potassium-sparing diuretic and a potassium salt should be avoided except in cases of significant hypokalemia, and only if serum potassium concentrations can be closely monitored. Also monitor for other evidence of hyperkalemia (e.g., muscular weakness, fatigue, arrhythmias, bradycardia) during concomitant use of these products. Patients with renal impairment, elevated serum potassium concentrations, and/or receiving medications that may increase serum potassium concentrations (e.g., ELOISE inhibitors, angiotensin receptor blockers) may be at increased risk of these adverse effects. Potassium-Sparing Diuretics Interacting Members AMILoride; Eplerenone; Spironolactone*; Triamterene* Potassium Salts Interacting Members Potassium Acetate; Potassium Chloride*; Potassium Citrate; Potassium Gluconate; Potassium Iodate; Potassium Iodide; Potassium Phosphate * Denotes agent(s) specifically implicated in clinical data. Unmarked agents are listed because they have properties similar to marked agents, and may respond so within the context of the stated interaction. Discussion The incidence of hyperkalemia was increased approximately threefold in patients receiving spironolactone plus potassium chloride versus those receiving spironolactone alone.1 The incidence was increased approximately sevenfold if the patient was receiving potassium chloride and also had azotemia (total incidence of 42% in this selected population). The incidence of hyperkalemia was approximately 50% in a retrospective review of 25 patients receiving both spironolactone and a potassium supplement.2 Case reports of morbidity-associated hyperkalemia have been reported when using either spironolactone or triamterene with a potassium supplement/potassium-containing salt substitutes.3,4,5,6,7 The effects of potassium-sparing diuretics and potassium supplementation are additive. Footnotes 1. Frederic MAGUIRE and Luis Gonzalez, Adverse Reactions to Spironolactone. A Report From the [place] [facility] Drug Surveillance Pneumococcal Vaccine HX Pneumo Vac ([id number]): Yes (2007. ) Comments Regarding the Review Perform electrolyte levels periodically. Patient received the influenza vaccine in May 2017. Clarify whether patient received the Pneumovax or the Prevnar vaccine. She may receive the appropriate vaccine 1 year after the administration of the first pneumococcal vaccine. SCAR LARA Jul 20, 2017 15:08
[2017-07-20 16:11] VITALS: Ht 160 cm; Wt 66.2 kg
--- NOTE | 2017-07-20 16:23 | Medical Nutrition Therapy ---
Nutrition Anthropometrics Height (Inches): 63.00 Height (Calculated Centimeters: 160.872981 Weight (Pounds): 165 Weight (Calculated Kilograms): 74.843 BMI Calculated: 29.23 Ancelmo Nutrition Score: Probably Inadequate Ancelmo Nutrition Risk Score: 15 Dietary Referral Nutrition Risk Factors: Unplanned Loss >10lbs Nutrition Risk Comment: states weight loss of approx 10 lbs recently Physical Findings Physical Appearance: Overweight BMI 25-29 Skin Appearance Skin Appearance: Edema Edema Location Modifier: Both Edema Location: Ankle Type of Edema: Degree of Edema: 2+ Gastrointestinal Symptoms GI Symtoms: Tube Present: Bowel Sounds: Recent Bowel Pattern: Stool Characteristics: Nutrition/Food History No Significant Nutr. HX Nutritional Diagnosis Nutritional Risk Acuity 3: Fair Appetite Past Medical History: HX of pacemaker, Renal infarct, OAB (overactive bladder), Recurrent urinary tract infection, Deep vein thrombosis, Hypertension, hyperparathyroidism, Stroke Nutritional Acuity: 3-Mild Nutrition Diagnosis: Increased Nutrient Needs Nutrition Etiology: Physiological Causes Nutrition Problem/Etiology/Sym: Increased Nutrient Needs related to increased demand for nutrients secondary to infection AEB low albumin status indicating increased stress and increased metabolic needs. Energy Requirement: 1630 ([place] Je[place]: Actual BW X 1.4) Protein Requirement: 74 (Actual BW Kg X 1.0) Fluid Requirement: 1630 Diet Type: Diet as Tolerated ROSS/REG Nutrition Intervention: Cont diet as ordered Optional Order Time?: No Nutrition Monitoring & Eval Nutrition Goals: Eat 75-100% Meal RD Patient Assessment Time: [address] Assessment Type: RD Assessment Patient Nutrition Acuity: 3-Mild Follow Up Date: Jul 21, 2017 Nutritional Comment: Pt originally admitted to Med/Surg floor for UTI and weakness. Transferred to F for continued management. Pt overwt with BMI of 29.23. Alb 2.5, BNP 199, TIBC 216, Low H/H. Receiving ROSS. On Medical floor, pt consumed 25-100% of meals. Follow wt, labs, intake, etc. SOHAM HAYNES Jul 20, 2017 16:23
--- NOTE | 2017-07-20 18:25 | OT ECF NOTE ---
Type of Note: Initial Note Primary Medical Diagnosis: UTI Occupational Therapy Evaluation Date: 07-20-17 SUBJECTIVE: Prior Hospitalization: [facility] medical floor from 07/16/17 to 07/20/17. Prior Level of Function: Independent with all ADL/IADL activities, 2 weeks prior to medical admission. Prior Living Status: Apartment Alone Community Services: Independent Home Accessibility: All needs on one level Tub/shower combination Equipment Owned: Standard walker. Medical Complications/Past Medical History: Please refer to chart for details. Psychosocial Support: Supportive son (who resides 3 hours from [place]) Pain Scale (0-10): 4/10 in right thigh Hand Dominance: [*] OBJECTIVE: Strength: MMT: Right Left Shoulder Flexion [*] [*] Elbow Flexion [*] [*] Wrist Extension [*] [*] Fur Blower Operator [*] [*] (5= normal, 4= good, 3= fair, 2= poor, 1= trace) ROM: Both upper extremities WFL Sensation: [*] Functional Transfer: Assistive Device: Front wheeled walker Gait belt Transfer Ability: CGA ADL: Upper body dressing: Assistive device: Upper body dressing ability: Lower body dressing: Assistive device: Lower body dressing ability: Maximum assistance Toileting: N/T Assistive device: Toileting ability: Grooming/hygiene: Seated Assistive device: Adapted comb/brush Grooming ability: Set-up Bathing: N/T Assistive device: Bathing ability: Standardized Assessment: Harmony Index of Activities of Daily Living- Pt. scored a 12/2O on this Index upon initial evaluation. ASSESSMENT: Pt. is a 82 year old woman who was admitted to [facility] medical floor on 07/16/17 with a UTI. Pt. resides alone in [place], in an apartment. Pt. had been independent with all activities, including driving and grocery shopping, 2 weeks prior to admit. Pt. would benefit from skilled OT services to return to prior level of independence. Problem List/Current Limitations: Pain Decreased WB Decreased activity kj Decreased strength Decreased sensation Decreased ROM Generalized weakness Confusion Short Term Goals: 1. Pt. to increase Gwendolyn INdex of ADL score by 2 points. 2. Pt. to perform showering activities with Min A. 3. Pt. to perform toileting activities with Mod I. 4. Pt. to perform g/h activities with I. 5. Pt. to perform dressing activities with Min A. Patient Scheduling Coordinator Goals: Return home. Patient Goals: Return home. Rehabilitation Prognosis: Fair Barriers to Discharge: Advanced age, recurrent UTI, high fall risk, resides alone. PLAN: The patient will benefit from skilled occupational therapy services 5 times per week for 2 weeks including: Ther ex ADL training Safety training Ther act IADL training Transfer training Adaptive equip training Bed mobility Thank you for this referral. If you have any questions, concerns, or comments about this report or plan, please contact me at . Zandra Beltran, OTR/L Occupational Therapist [place]
--- NOTE | 2017-07-20 19:12 | ECF H&P BLANK ---
ECF H&P UPDATE The acute care issues below are resolving and/or stable. Patient requires fpc and/or skilled rehabilitation and is ready for admission to Extended Care. The patient's issues will continue to be followed by the hospitalist service while on ECF. History of Present Illness History of Present Illness 82yo female with a h/o chronic UTI on suppressive Bactrim who was brought to the ER for increased confusion and weakness. She was in her normal state of health about 4 days ago. Then she started to have more difficulty ambulating and had a fall a couple of days ago. Family has noted increased confusion and hallucinations. She thought she spoke with her son, but he reports that she didn't. Staff from [facility] have found her outside, but she doesn't recollect the events. She has more swelling in her legs than usual, but reports to sleeping sitting up in her couch for the last couple of years. She was chilled today. No dysuria. No reported cough or SOB. History Problems: (1) History of pacemaker Status: Chronic (2) Renal infarct Status: Resolved (3) OAB (overactive bladder) Status: Chronic (4) Recurrent urinary tract infection Status: Chronic (5) Deep vein thrombosis Status: Resolved (6) Hypertension, benign Status: Chronic (7) Primary hyperparathyroidism Status: Chronic (8) Stroke Status: Resolved Home Meds Active Scripts Atorvastatin Calcium (ATORVASTATIN CALCIUM) 40 Mg Tablet, 1 TAB PO QDAY, #9999 TAB Prov:MARIANGEL DOLL MD 11/11/16 Spironolact/Hydrochlorothiazid (SPIRONOLACTONE-HCTZ 25-25 TAB) 1 Each Tablet, 1 TAB PO QAM, #90 TAB 3 Refills Prov:MARIANGEL DOLL MD 08/19/16 Rivaroxaban 20 Mg (XARELTO 20 MG) 20 Mg Tablet, 1 TAB PO DAILY, #90 TAB 3 Refills Prov:MARIANGEL DOLL MD 08/19/16 Sulfamethoxazole/Trimet 800-160 Mg Tab (BACTRIM DS TABLET) 1 Each Tablet, 1 TAB PO 3XW, #36 TAB 3 Refills Take three times a week. Prov:MARIANGEL DOLL MD 08/19/16 Reported Medications Cholecalciferol (Vitamin D3) (VITAMIN D3) 1,000 Unit Tablet, 1000 UNIT PO QDAY 10/31/14 Ca Carbonate/Vitamin D3/Vit K (Citracal Soft Chew) 1 Each Tab.chew, 1 TAB PO QDAY 05/19/14 Allergies: Coded Allergies: No Known Allergies (Verified Allergy, Mild, 11/06/10) Patient History: FH: CVA (cerebrovascular accident) MOTHER, , Age:67 FH: NM (myocardial infarction) BROTHER, , Age:60 Hx Smoking: No Smoking Status: Never Smoker Caffeine/Cups Per Day: 0 Hx Alcohol Use: No Hx Substance Use Disorder: No Social Drug Use: Never Review of Systems All Systems Reviewed/Normal: Yes, Except as Noted Exam Vital Signs Vital Signs Date Time Temp Pulse Resp B/P (MAP) Pulse Ox O2 Delivery O2 Flow Rate FiO2 07/16/17 20:21 Room Air 07/16/17 20:13 97.7 65 123/51 (75) 95 07/16/17 19:52 17 General Appearance: Alert, Awake, No Acute Distress Neuro: No Gross deficits (CN 2-12 intact, equal UE and LE strength, normal sensation to light touch in LE) ENT: Moist Mucous Membranes Cardiovascular: Regular Rate and Rhythm Respiratory: Clear to Auscultation GI: Abd Soft and Non-Tender Extremities: Edema (2+ pitting to mid shins) Integumentary: No Jaundice, No Cyanosis Medical Decision Making Data Points Result Diagram: 07/16/17 1802 07/16/17 173 Item Value Date Time Blood Urea Nitrogen 21 mg/dl H 07/16/17 1731 Creatinine 0.90 mg/dl 07/16/17 1731 Blood Urea Nitrogen 24 mg/dl H 08/11/16 0816 Creatinine 0.90 mg/dl 08/11/16 0816 Total Bilirubin 1.5 mg/dl H 07/16/17 1731 Aspartate Amino Transf (AST/SGOT) 41 U/L H 07/16/17 1731 Alanine Aminotransferase (ALT/SGPT) 34 U/L 07/16/17 1731 Alkaline Phosphatase 57 U/L 07/16/17 1731 Troponin I 0.022 ng/ml 07/16/17 1731 B-Type Natriuretic Peptide 139 pg/ml H 07/16/17 1731 Total Protein 6.4 gm/dl 07/16/17 1731 Albumin 3.4 g/dl L 07/16/17 1731 Magnesium Level 2.0 mg/dl 07/16/17 1731 Prothromb Time International Ratio 1.18 07/16/17 1731 White Blood Count 3.0 k/uL L 08/11/16 0816 White Blood Count 3.1 k/uL L 07/16/17 1802 Hemoglobin 9.6 g/dL L 07/16/17 1802 Hemoglobin 14.2 g/dL 08/11/16 0816 Platelet Count 89 K/uL L 08/11/16 0816 Platelet Count 234 K/uL 07/16/17 1802 Stool Occult Blood (IFOB) Negative 07/16/17 1909 Urine Leukocyte Esterase Large H 07/16/17 1747 Urine RBC 75 /HPF 07/16/17 1747 Urine WBC 1368 /HPF 07/16/17 1747 Urine Squamous Epithelial Cells None /LPF 07/16/17 1747 Urine Bacteria Few /HPF 07/16/17 1747 Urine Ketones 20 mg/dL H 07/16/17 1747 EKG / Imaging EKG Interpretation Vent. Rate : 085 BPM Atrial Rate : 065 BPM P-R Int : 154 ms QRS Dur : 100 ms QT Int : 408 ms P-R-T Axes : 072 042 006 degrees QTc Int : 485 ms Multiple atrial foci vs NSR with many PVC Cannot rule out Anterior infarct , age undetermined Abnormal ECG When compared with ECG of 19-SEP-2013 08:11, Now with multiple atrial foci vs PVC's Nonspecific T wave abnormality now evident in Inferior leads Nonspecific T wave abnormality now evident in Lateral leads QT has lengthened Confirmed by BROOKE MARELY ([id number]) on 07/16/2017 8:19:[address] - 1. No intracranial hemorrhage or mass effect. 2. No CT findings of acute ischemia. CXR - No findings of acute cardiopulmonary disease. Assessment and Plan Problems: (1) UTI (urinary tract infection) Status: Acute Assessment & Plan: She presented with a couple days of progressive weakness and confusion. UA is consistent with pyuria. She is afebrile with stable BP/ P. Will start Levofloxacin based on previous cultures. Urine culture pending. Recheck total bilirubin and AST (both were slightly elevated). (2) Weakness Status: Acute Assessment & Plan: Likely, secondary to the UTI and anemia. Will ask OT/PT to evaluate. Recheck Troponin and BNP tomorrow. (3) Confusion Status: Acute Assessment & Plan: Likely, secondary to the UTI. No evidence of a stroke by exam or CT of the head. Will follow. (4) Anemia Status: Acute Assessment & Plan: Hgb decreased from a normal value about a year ago. MCV elevated. She is chronically anticoagulated. Heme negative on stool. Iron, B12, Folate and reticulocyte count tomorrow. No reported BRBPR or melena. (5) Edema Onset Date: 10/26/2014 Status: Chronic Assessment & Plan: Chronic. Possibly worse, but she sleeps with her legs down. Will continue diuretics and elevate legs. Follow exam. (6) Chronic anticoagulation Status: Chronic Assessment & Plan: Secondary to a DVT and a h/o atrial fibrillation. She is on Xarelto chronically, so will continue. She appears to be in a multi atrial foci rhythm by ECG. Rate controlled. She has a pacemaker. (7) Recurrent urinary tract infection Status: Chronic Assessment & Plan: Hold suppressive Bactrim. Copies to: CLARISSA DOMINIQUE MD Venous Thromboembolism Antithrombotics Is Pt On Any Antithrombotics?: Yes Exam Sepsis Risk: No Definite Risk BROOKE MARLEY MD Jul 16, 2017 21:54 <Electronically signed by BROOKE MARLEY MD> D/ 53 53 53 PETELARS/LP CC: CLARISSA DOMINIQUE MD, JULIE A MD Jul 20, 2017 19:12
[2017-07-20] MEDS: ATORVASTATIN 40 MG TAB PO SCH (20:48)
[2017-07-20] MEDS: NYSTATIN 100,000 U/GM PWD 15GM TP SCH (20:48)
[2017-07-20] MEDS: LEVOFLOXACIN 500 MG TAB PO SCH (20:49)
[2017-07-21] MEDS: ACETAMINOPHEN 325 MG TAB PO PRN (05:21)
[2017-07-21 07:30] VITALS: BP 125/46
[2017-07-21] MEDS: SPIRONOLACTONE 25 MG TAB PO SCH (08:48)
[2017-07-21] MEDS: RIVAROXABAN 10 MG TAB PO SCH (08:48)
[2017-07-21] MEDS: POTASSIUM CHL 20 MEQ TABCR PO SCH (08:48)
[2017-07-21] MEDS: FUROSEMIDE 40 MG TAB PO SCH (08:48)
[2017-07-21] MEDS: NYSTATIN 100,000 U/GM PWD 15GM TP SCH ×2 (08:49→20:44)
--- NOTE | 2017-07-21 12:20 | Medical Nutrition Therapy ---
Nutrition Monitoring & Eval RD Patient Assessment Time: [address] Assessment Type: RD Assessment Patient Nutrition Acuity: 3-Mild Follow Up Date: Jul 28, 2017 Nutritional Comment: Pt originally admitted to Med/Surg floor for UTI and weakness. Transferred to [facility] for continued management. Pt overwt with BMI of 29.23. Alb 2.5, BNP 199, TIBC 216, Low H/H. Receiving ROSS. On Medical floor, pt consumed 25-100% of meals. Follow wt, labs, intake, etc. ANNAMARIA AC Jul 21, 2017 12:20
--- NOTE | 2017-07-21 15:23 | Antimicrobial Stewardship ---
Antimicrobial Stewardship MD Service: Hospitalist Indications: UTI Antimicrobial Allergies NKDA Antimicrobial History Levofloxacin 500 mg IV daily Duration of Therapy: 3 Days Start Date: Jul 16, 2017 Height (Calculated Centimeters: 160.862734 Weight (Calculated Kilograms): 68.351 Culture Results: Yes Comments 07/19/17 Started on Levofloxacin 500 mg PO daily while on Medical Surgical Unit. Levofloxacin PO ordered at the time of ECF admission. FRANCISCO J MICHAELS Jul 21, 2017 15:23
[2017-07-21 16:50] VITALS: BP 122/52
[2017-07-21] MEDS: ATORVASTATIN 40 MG TAB PO SCH (20:42)
[2017-07-21] MEDS: LEVOFLOXACIN 500 MG TAB PO SCH (20:44)
[2017-07-22 07:20] VITALS: BP 123/60
[2017-07-22] MEDS: SPIRONOLACTONE 25 MG TAB PO SCH (09:07)
[2017-07-22] MEDS: FUROSEMIDE 40 MG TAB PO SCH (09:08)
[2017-07-22] MEDS: RIVAROXABAN 10 MG TAB PO SCH (09:08)
[2017-07-22] MEDS: NYSTATIN 100,000 U/GM PWD 15GM TP SCH ×2 (09:08→20:38)
[2017-07-22] MEDS: POTASSIUM CHL 20 MEQ TABCR PO SCH (09:08)
--- NOTE | 2017-07-22 16:21 | Hospitalist Progress Note ---
Physical Exam Vital Signs Date Time Temp Pulse Resp B/P (MAP) Pulse Ox O2 Delivery O2 Flow Rate FiO2 07/22/17 10:13 94 Room Air 07/22/17 07:20 96.7 60 16 123/60 (81) Intake and Output 07/23/17 07:00 Intake Total 180 ml Balance 180 ml Intake Oral 180 ml # Voids 3 Assessment and Plan Problems: (1) UTI (urinary tract infection) Status: Acute Assessment & Plan: Her urine did have large leukocytes and WBC clumps. She was on chronic suppressive treatment with Bactrim. This was stopped at admission and she was placed on levofloxacin. Her culture grew Aerococcus. Sensitivities were not available. She improved and has been to transferred to ECF for rehabilitation. She has completed her course of Levaquin. (2) Weakness Status: Acute Assessment & Plan: Physical and occupational therapy worked with the patient and recommended ongoing rehabilitation after discharge. The patient was transferred to ECF for ongoing therapy. (3) Confusion Status: Resolved Assessment & Plan: A CT of the head was unremarkable. The patient improved with treatment of her infection. She continues to have difficulty with memory which has been ongoing. The patient and family agree to cognitive evaluation. ST consulted. (4) Anemia Status: Chronic Assessment & Plan: Her counts were low, but remained stable. She did not required transfusion. Will repeat labs in the am. (5) Edema Onset Date: 10/26/2014 Status: Chronic Assessment & Plan: She was on chronic treatment with spironolactone. Lasix was added in place of her hydrochlorothiazide. (6) Chronic anticoagulation Status: Chronic Assessment & Plan: She was continued on chronic treatment with Xarelto for a history of DVT and atrial fibrillation. (7) Recurrent urinary tract infection Status: Chronic Assessment & Plan: Bactrim was discontinued. (8) Pancytopenia Status: Chronic Assessment & Plan: This was believed to be secondary to chronic Bactrim. The Bactrim was discontinued. It appeared however, from review of the EMR, that the pancytopenia predated the Bactrim. If her counts do not improve while on ECF and off of Bactrim, will need to have hematology see. Time Spent on Plan of Care: < 30 min SCAR MOSS MD Jul 22, 2017 16:21
[2017-07-22 16:50] VITALS: BP 106/51
[2017-07-22] MEDS: LEVOFLOXACIN 500 MG TAB PO SCH (20:41)
[2017-07-22] MEDS: ACETAMINOPHEN 325 MG TAB PO PRN (20:41)
[2017-07-22] MEDS: ATORVASTATIN 40 MG TAB PO SCH (20:41)
[2017-07-23 07:12] LABS: PLATELET COUNT, AUTOMATED 147 K/uL (150-450)
[2017-07-23 08:00] VITALS: BP 97/54
--- NOTE | 2017-07-23 08:35 | EKG ---
FACILITY: [facility] PATIENT NAME: RICKEY RUANO : [id number] MR: [id number] V: [id number] EXAM DATE: ORDERING PHYSICIAN: SCAR MOSS TECHNOLOGIST: NEELA Parks Reason : CHEST PAIN Blood Pressure : / mmHG Vent. Rate : 060 BPM Atrial Rate : 060 BPM P-R Int : 214 ms QRS Dur : 088 ms QT Int : 406 ms P-R-T Axes : 000 063 045 degrees QTc Int : 406 ms Sinus rhythm with 1st degree AV block Otherwise normal ECG When compared with ECG of 16-JUL-2017 17:18, Previous ECG has undetermined rhythm, needs review QT has shortened Confirmed by SCAR PATEL ([id number]) on 07/23/2017 9:32:35 AM Referred By: AJAY Confirmed By:SCAR PATEL
[2017-07-23] MEDS ORDERED: MAG HYD/AL HYD/SIMETH 30ML UDC PO ONE (08:38)
--- NOTE | 2017-07-23 08:43 | Hospitalist Progress Note ---
Subjective Progress Notes Subjective The patient states she woke up with chest pressure this am. It did not wake her from sleep, but when she awoke her chest felt "tight" with band-like pressure and she felt short of breath with this. Physical Exam Vital Signs Date Time Temp Pulse Resp B/P (MAP) Pulse Ox O2 Delivery O2 Flow Rate FiO2 07/23/17 03:10 Room Air 07/22/17 16:50 97.6 98 20 106/51 (69) 98 General Appearance: Alert, Awake, No Acute Distress Neuro: No Gross deficits Cardiovascular: Regular Rate and Rhythm Respiratory: Clear to Auscultation GI: Soft and Non-Tender Extremities: Warm, Perfused Psych: Appropriate Mood & Affect Result Diagram: 07/23/1763807/23/17638 Assessment and Plan Problems: (1) Chest pain Status: Acute Assessment & Plan: Will get EKG, troponin and chest x-ray. The patient has a hx of DVT/PE, but has been on Xarelto 20mg daily. (2) UTI (urinary tract infection) Status: Acute Assessment & Plan: Her urine did have large leukocytes and WBC clumps. She was on chronic suppressive treatment with Bactrim. This was stopped at admission and she was placed on levofloxacin. Her culture grew Aerococcus. Sensitivities were not available. She improved and has been to transferred to F for rehabilitation. She has completed her course of Levaquin. (3) Weakness Status: Acute Assessment & Plan: Physical and occupational therapy worked with the patient and recommended ongoing rehabilitation after discharge. The patient was transferred to ECF for ongoing therapy. (4) Confusion Status: Resolved Assessment & Plan: A CT of the head was unremarkable. The patient improved with treatment of her infection. She continues to have difficulty with memory which has been ongoing. The patient and family agree to cognitive evaluation. ST consulted. (5) Anemia Status: Chronic Assessment & Plan: Her counts were low, but remained stable. She did not required transfusion. Will repeat labs in the am. (6) Edema Onset Date: 10/26/2014 Status: Chronic Assessment & Plan: She was on chronic treatment with spironolactone. Lasix was added in place of her hydrochlorothiazide. (7) Chronic anticoagulation Status: Chronic Assessment & Plan: She was continued on chronic treatment with Xarelto for a history of DVT and atrial fibrillation. (8) Recurrent urinary tract infection Status: Chronic Assessment & Plan: Bactrim was discontinued. (9) Pancytopenia Status: Chronic Assessment & Plan: This was believed to be secondary to chronic Bactrim. The Bactrim was discontinued. It appeared however, from review of the EMR, that the pancytopenia predated the Bactrim. If her counts do not improve while on ECF and off of Bactrim, will need to have hematology see. SCAR MOSS MD Jul 23, 2017 08:43
[2017-07-23] MEDS: SPIRONOLACTONE 25 MG TAB PO SCH (09:00)
--- NOTE | 2017-07-23 09:13 | RADIOLOGY IMAGING REPORT ---
[place] [facility] [place] NAME: Acacia Mchugh : 1935 MR: [id number] V: [id number] EXAM DATE: ORDERING PHYSICIAN: KVNG MOSS TECHNOLOGIST: Location: [facility] [place] Patient: Acacia Mchugh : 1935 Visit/Account:[id number] Date of Sevice: 07/23/2017 EXAMINATION: Chest radiograph HISTORY: New onset chest tightness COMPARISON: 07/16/2017 FINDINGS: The cardiac silhouette is normal in size. Unchanged pacemaker. No pneumothorax. Clear lungs. No acute osseous abnormality. Convexity left thoracolumbar scoliosis. IMPRESSION: No acute finding. Report Dictated By: Jose Luis Holguin MD at 07/23/2017 9:07 AM Report E-Signed By: Jose Luis Holguin MD at 07/23/2017 9:08 AM WSN:[id number]
[2017-07-23 10:00] VITALS: BP 114/41
[2017-07-23] MEDS: NYSTATIN 100,000 U/GM PWD 15GM TP SCH ×2 (10:08→20:44)
[2017-07-23] MEDS: ACETAMINOPHEN 325 MG TAB PO PRN ×2 (10:08→17:28)
[2017-07-23] MEDS: POTASSIUM CHL 20 MEQ TABCR PO SCH (10:09)
[2017-07-23] MEDS: RIVAROXABAN 10 MG TAB PO SCH (10:09)
[2017-07-23] MEDS: FUROSEMIDE 40 MG TAB PO SCH (10:22)
[2017-07-23 16:45] VITALS: BP 87/45
--- NOTE | 2017-07-23 19:31 | PT ECF NOTE ---
Type of Note: Initial Note Primary Medical Diagnosis: UTI Physical Therapy Evaluation Date: 07-20-17 SUBJECTIVE: Prior Hospitalization: [facility] medical floor from 07/16/17 to 07/20/17. Prior Level of Function: Independent with all ADL/IADL activities, 2 weeks prior to medical admission. Prior Living Status: Apartment; Alone Community Services: Independent Home Accessibility: All needs on one level; Tub/shower combination Equipment Owned: Standard walker. Medical Complications/Past Medical History: Please refer to chart for details. Psychosocial Support: Supportive son (who resides 3 hours from [place]) Pain Scale (0-10): 4/10 in right thigh OBJECTIVE: Strength: No MMT due to pain reported in R) thigh. Functionally, pt exhibits 3-/5 overall and is unable to lift LE against gravity in supine position. ROM: (please note any abnormalities) decreased knee flexion related to discomfort and arthritis Sensation: (please note any abnormalities) pt denies any paresthesias Other Neuro findings: n/a Bed Mobility: Max assist x 2 for scooting up in bed Assistive device: Bed rail Transfers: 2-person assist; CGA Assistive Device: Front wheeled walker Gait: Verbal cues; CGA Assistive device: Front wheeled walker Stairs: Not yet attempted Assistive device: Timed Up and Go (>12 seconds indicated increased risk for falls): Pt too fatigued at this time to complete additional ambulation test. 10 meter walk test (0.6m/second cannot function independently): n/a Other Objective Measures: n/a ASSESSMENT: Pt demos decline in function as compared to her report of prior level of function. Pt and son note that previously pt was indep with ADL's as well as driving and groceries. Pt states that currently she feels weak and demos decreased balance as well as decreased stamina to participate in basic ADL 's. Pt would benefit from further rehab to address increased indep with proper safety awareness skills and strengthening as tolerated. Problem List/Current Limitations: Decreased activity kj, Decreased strength , Decreased coordination, Decreased balance, Generalized weakness, Decreased problem solving Short Term Goals: 1. Pt to be indep for ambulation with least restrictive device x 300' and no loss of balance noted. 2. Pt to be indep for sit to/from stand transfers from a variety of surfaces with least restrictive device. 3. Pt to be indep with supine to/from sit transfers with least restrictive device and proper safety awareness skills. 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 Patient Goals: To return to [facility] Rehabilitation Prognosis: Good Barriers for Discharge: Pt resides alone and son is not available to assist at all times. Pt may benefit from [facility] to assist with transition home as well. PLAN: The patient will benefit from skilled physical therapy services 5 times per week for 2 weeks including: Therapeutic Exercise Therapeutic Activities, Transfer Training, Gait Training, ADL's, Safety Training , Pt/Caregiver Training, Bed Mobility Thank you for this referral. If you have any questions, concerns, or comments about this report or plan, please contact me at . h. Meena Anderson, PT, MPT [facility]
[2017-07-23] MEDS: LEVOFLOXACIN 500 MG TAB PO SCH (20:44)
[2017-07-23] MEDS: ATORVASTATIN 40 MG TAB PO SCH (21:00)
[2017-07-24 07:35] VITALS: BP 92/40
[2017-07-24 08:30] VITALS: BP 114/43
[2017-07-24] MEDS: POTASSIUM CHL 20 MEQ TABCR PO SCH (08:31)
[2017-07-24] MEDS: NYSTATIN 100,000 U/GM PWD 15GM TP SCH ×2 (08:31→20:27)
[2017-07-24] MEDS: RIVAROXABAN 10 MG TAB PO SCH (08:31)
[2017-07-24] MEDS: SPIRONOLACTONE 25 MG TAB PO SCH (08:44)
[2017-07-24 09:40] VITALS: BP 122/41
[2017-07-24] MEDS: FUROSEMIDE 40 MG TAB PO SCH (09:42)
[2017-07-24 17:35] VITALS: BP 112/53
[2017-07-24] MEDS: ATORVASTATIN 40 MG TAB PO SCH (20:27)
[2017-07-24] MEDS: LEVOFLOXACIN 500 MG TAB PO SCH (20:29)
[2017-07-25 07:50] VITALS: BP 117/53
[2017-07-25] MEDS: SPIRONOLACTONE 25 MG TAB PO SCH (08:43)
[2017-07-25] MEDS: FUROSEMIDE 40 MG TAB PO SCH (08:44)
[2017-07-25] MEDS: POTASSIUM CHL 20 MEQ TABCR PO SCH (08:44)
[2017-07-25] MEDS: RIVAROXABAN 10 MG TAB PO SCH (08:45)
[2017-07-25] MEDS: NYSTATIN 100,000 U/GM PWD 15GM TP SCH ×2 (08:45→20:16)
[2017-07-25] MEDS ORDERED: MAGNESIUM HYDROXIDE* 30ML UDCP PO PRN (15:05)
[2017-07-25 16:55] VITALS: BP 133/57
[2017-07-25] MEDS: LEVOFLOXACIN 500 MG TAB PO SCH (20:16)
[2017-07-25] MEDS: ATORVASTATIN 40 MG TAB PO SCH (20:16)
[2017-07-26 07:40] VITALS: BP 133/55
[2017-07-26] MEDS: FUROSEMIDE 40 MG TAB PO SCH (08:51)
[2017-07-26] MEDS: SPIRONOLACTONE 25 MG TAB PO SCH (08:51)
[2017-07-26] MEDS: POTASSIUM CHL 20 MEQ TABCR PO SCH (08:51)
[2017-07-26] MEDS: RIVAROXABAN 10 MG TAB PO SCH (08:52)
[2017-07-26] MEDS: NYSTATIN 100,000 U/GM PWD 15GM TP SCH ×2 (08:52→20:39)
[2017-07-26] MEDS ORDERED: NS(*) 0.9% 500 ML BAG 500 ML IV PRN (09:35)
[2017-07-26 16:40] VITALS: BP 139/59
[2017-07-26] MEDS: ATORVASTATIN 40 MG TAB PO SCH (20:39)
[2017-07-26] MEDS: LEVOFLOXACIN 500 MG TAB PO SCH (20:39)
[2017-07-27 07:20] VITALS: BP 99/46
[2017-07-27] MEDS: FUROSEMIDE 40 MG TAB PO SCH (09:00)
[2017-07-27] MEDS: SPIRONOLACTONE 25 MG TAB PO SCH (09:00)
[2017-07-27 09:09] VITALS: BP 105/35
[2017-07-27] MEDS: POTASSIUM CHL 20 MEQ TABCR PO SCH (09:10)
[2017-07-27] MEDS: RIVAROXABAN 10 MG TAB PO SCH (09:10)
[2017-07-27] MEDS: NYSTATIN 100,000 U/GM PWD 15GM TP SCH ×2 (09:12→20:52)
--- NOTE | 2017-07-27 09:46 | Medical Nutrition Therapy ---
Nutrition Anthropometrics Height (Inches): 63.00 Height (Calculated Centimeters: 160.857383 Weight (Pounds): 150 Weight (Calculated Kilograms): 68.351 BMI Calculated: 29.23 Ancelmo Nutrition Score: Adequate Ancelmo Nutrition Risk Score: 17 Dietary Referral Nutrition Risk Factors: Unplanned Loss >10lbs Nutrition Risk Comment: states weight loss of approx 10 lbs recently Physical Findings Physical Appearance: Overweight BMI 25-29 Skin Appearance Skin Appearance: Edema Edema Location Modifier: Both Edema Location: Ankle Type of Edema: Degree of Edema: 1+ Gastrointestinal Symptoms GI Symtoms: Constipation Tube Present: Bowel Sounds: Recent Bowel Pattern: Stool Characteristics: Nutritional Diagnosis Nutritional Risk Acuity 3: Fair Appetite Past Medical History: HX of pacemaker, Renal infarct, OAB (overactive bladder), Recurrent urinary tract infection, Deep vein thrombosis, Hypertension, hyperparathyroidism, Stroke Nutritional Acuity: 3-Mild Nutrition Diagnosis: Increased Nutrient Needs Nutrition Etiology: Physiological Causes Nutrition Problem/Etiology/Sym: Increased Nutrient Needs related to increased demand for nutrients secondary to infection AEB low albumin status indicating increased stress and increased metabolic needs. Energy Requirement: 1630 ([place]-St Jeor: Actual BW X 1.4) Protein Requirement: 74 (Actual BW Kg X 1.0) Fluid Requirement: 1630 Diet Type: Diet as Tolerated ROSS/REG Nutrition Intervention: Cont diet as ordered Drug: Diuretics Drug/Nutrition Recommendations: Check Serum K+ Optional Order Time?: No Nutrition Monitoring & Eval RD Patient Assessment Time: [address] Assessment Type: RD Re-Assessment Patient Nutrition Acuity: 3-Mild Follow Up Date: Aug 04, 2017 Nutritional Comment: Pt originally admitted to Med/Surg floor for UTI and weakness. Transferred to F for continued management. Pt overwt with BMI of 29.23. Alb 2.5, BNP 199, TIBC 216, Low H/H. Receiving ROSS. On Medical floor, pt consumed 25-100% of meals. Follow wt, labs, intake, etc. 07/27 Pt continues on ROSS with 55% average intakes of regular portions over the last 3 days. No new labs available. Pt taking K+ depleting diuretic. K+ WNL. Pt has had 15 lb wt loss over 4 days. This is most likely due to edema and lasix. BMI 26.7. Will continue to montior wt, labs, intake, etc. SHARLA MUSTAFA Jul 27, 2017 08:52
--- NOTE | 2017-07-27 12:59 | SPEECH INITIAL EVALUATION ---
INITIAL SPEECH THERAPY EVALUATION REPORT Patient Name: Acacia Mchugh Date of Evaluation: 07-24-17 Patient : 1935 Clinician: Judy Calzada M.S., [facility]-CRIMINAL PSYCHOLOGIST Treatment Dx: Moderately Severe Cognitive Deficit BACKGROUND The patient is an 82 year old female experiencing cognitive-linguistic deficit. She and her family reported recent changes to functional cognition reducing independence with IADL's at home. LANGUAGE/COGNITION The [place] Cognitive Assessment (MoCA) was administered with the following results: -MoCA Total Score (TS): 11/30 = moderately/severe cognitive impairment (MCI) -Cognitive Domains Demonstrating Deficits: visuospatial, executive function, memory, attention, delayed recall. -Cognitive Domains Demonstrating Strength: language, attention, orientation ( successful with month, year, place, city; unsuccessful with date, day) Cognitive- Linguistic deficits impact swallow function/safety, or response to therapy: Yes Mini-Mental State Examination (MMSE) was administered with the following results: MMSE Total Score: 17/30 = moderately impaired range Functional Communication Deficits: The patient does not have functional cognitive/communication for safety and independence in the home and community including communication of medical details/instructions SPEECH: Articulation of speech sounds at word, sentence, and conversational level is wnl. VOICE: within functional limits DYSPHAGIA: Patient denies oral, pharyngeal, and esophageal dysphagia symptoms at this time. SUMMARY COGNITIVE / LINGUISTIC ASSESSMENT Functional Communication Deficits: The patient does not have functional cognitive/communication for safety and independence in the home and community including communication of medical details/instructions Results indicate the patient may demonstrate impairments IADL's including the following tasks: Asks for others by name/job title Asks questions related to care Follows complex instructions including those for safety and medical information Independent medication management Independent senior financial Writes name/address/date/wants and needs/questions/medical information Reads book / magazine / medical information The patient was aware of poor performance on the standardized assessments which caused her concern and anxiety. She was provided with education regarding possible cognitive effects of illness including UTI. ST will following the patient for cognitive linguistic therapy for safety and independence and continue to assess RECOMMENDATIONS 1. ST 4x/wk PROGNOSIS: Good with medical improvement PLAN OF CARE Short Term Goals 1. The patient will perform immediate/short term memory tasks at 90% with min assist for successful communication related to patient independence / safety / social interaction / care and comfort/ medical details / progress /personal education goals 2. The patient will perform executive function (ie. thought organization, planning, problem solving) for successful functional communication related to patient independence / safety / social interaction / care and comfort/ medical details / progress /personal education goals with min assist at 90%. 3. The patient will perform writing/reading tasks with min assist at 90% for successful functional communication related to patient independence / safety / social interaction / care and comfort/ medical details / progress /personal education goals with min assist. Long-Term Goals 1. The patient will demonstrate functional cognitive communication for safety and independence Thank you for this referral. Please call [phone] Judy Calzada M.S., CCC-CRIMINAL PSYCHOLOGIST [place]
[2017-07-27 16:30] VITALS: BP 119/57
[2017-07-27] MEDS: ACETAMINOPHEN 325 MG TAB PO PRN (20:52)
[2017-07-27] MEDS: ATORVASTATIN 40 MG TAB PO SCH (20:52)
[2017-07-27] MEDS: LEVOFLOXACIN 500 MG TAB PO SCH (20:52)
[2017-07-28 08:00] VITALS: BP 115/53
[2017-07-28] MEDS: NYSTATIN 100,000 U/GM PWD 15GM TP SCH ×2 (09:00→20:47)
[2017-07-28] MEDS: FUROSEMIDE 40 MG TAB PO SCH (09:13)
[2017-07-28] MEDS: SPIRONOLACTONE 25 MG TAB PO SCH (09:14)
[2017-07-28] MEDS: RIVAROXABAN 10 MG TAB PO SCH (09:14)
[2017-07-28] MEDS: POTASSIUM CHL 20 MEQ TABCR PO SCH (09:14)
[2017-07-28 16:40] VITALS: BP 126/54
[2017-07-28] MEDS: ATORVASTATIN 40 MG TAB PO SCH (20:47)
[2017-07-28] MEDS: LEVOFLOXACIN 500 MG TAB PO SCH (20:49)
[2017-07-29] MEDS: POTASSIUM CHL 20 MEQ TABCR PO SCH (08:58)
[2017-07-29] MEDS: RIVAROXABAN 10 MG TAB PO SCH (08:58)
[2017-07-29] MEDS: SPIRONOLACTONE 25 MG TAB PO SCH (08:58)
[2017-07-29] MEDS: FUROSEMIDE 40 MG TAB PO SCH (08:58)
[2017-07-29] MEDS: NYSTATIN 100,000 U/GM PWD 15GM TP SCH ×2 (09:00→21:00)
[2017-07-29 09:28] VITALS: BP 105/46
--- NOTE | 2017-07-29 13:10 | Hospitalist Progress Note ---
Subjective Progress Notes Subjective The patient is walking well with PT but exhausted afterward. Physical Exam Vital Signs Date Time Temp Pulse Resp B/P (MAP) Pulse Ox O2 Delivery O2 Flow Rate FiO2 07/29/17 09:28 96.9 60 16 105/46 (65) 92 Room Air Intake and Output 07/30/17 07:00 Intake Total 60 ml Balance 60 ml Intake Oral 60 ml # Voids 2 General Appearance: Alert, Awake, No Acute Distress Neuro: Other (Poor short term memory at times.) Eyes: PERRLA Cardiovascular: Regular Rate and Rhythm Respiratory: Clear to Auscultation Extremities: Warm, Perfused, Other (Chronic venous stasis changes. 1+ edema bilaterally, lower legs) Integumentary: Other (Chronic venous stasis changes.) Psych: Appropriate Mood & Affect Assessment and Plan Problems: (1) Chest pain Status: Acute Assessment & Plan: Work up negative. Resolved. (2) UTI (urinary tract infection) Status: Acute Assessment & Plan: Her urine did have large leukocytes and WBC clumps. She was on chronic suppressive treatment with Bactrim. This was stopped at admission and she was placed on levofloxacin. Her culture grew Aerococcus. Sensitivities were not available. She improved and has been to transferred to ECF for rehabilitation. She has completed her course of Levaquin. Will repeat a UA and culture. (3) Weakness Status: Acute Assessment & Plan: Physical and occupational therapy worked with the patient and recommended ongoing rehabilitation after discharge. The patient was transferred to ECF for ongoing therapy. (4) Confusion Status: Resolved Assessment & Plan: A CT of the head was unremarkable. The patient improved with treatment of her infection. She continues to have difficulty with memory which has been ongoing. The patient and family agreed to cognitive evaluation which showed moderate to severe cognitive dysfunction. (5) Anemia Status: Chronic Assessment & Plan: Her counts are low, but have remained stable. She has not required transfusion. Will repeat labs in the am prior to hematology evaluation. She has already had a B12 and folate done and these were normal. (6) Edema Onset Date: 10/26/2014 Status: Chronic Assessment & Plan: She was on chronic treatment with spironolactone. Lasix was added in place of her hydrochlorothiazide. (7) Chronic anticoagulation Status: Chronic Assessment & Plan: She was continued on chronic treatment with Xarelto for a history of DVT and atrial fibrillation. (8) Recurrent urinary tract infection Status: Chronic Assessment & Plan: Bactrim was discontinued. (9) Pancytopenia Status: Chronic Assessment & Plan: This was believed to be secondary to chronic Bactrim. The Bactrim was discontinued. It appeared however, from review of the EMR, that the pancytopenia predated the Bactrim. Her counts have not improved off of Bactrim either. She will see hematology tomorrow. Time Spent on Plan of Care: < 30 min SCAR MOSS MD Jul 29, 2017 13:10
[2017-07-29 16:20] VITALS: BP 117/42
[2017-07-29] MEDS: LEVOFLOXACIN 500 MG TAB PO SCH (21:00)
[2017-07-29] MEDS: ATORVASTATIN 40 MG TAB PO SCH (21:00)
[2017-07-30 07:43] LABS: PLATELET COUNT, AUTOMATED 172 K/uL (150-450)
[2017-07-30 07:55] VITALS: BP 111/59
[2017-07-30] MEDS: NYSTATIN 100,000 U/GM PWD 15GM TP SCH ×2 (09:00→21:00)
[2017-07-30] MEDS: SPIRONOLACTONE 25 MG TAB PO SCH (09:07)
[2017-07-30] MEDS: POTASSIUM CHL 20 MEQ TABCR PO SCH (09:07)
[2017-07-30] MEDS: FUROSEMIDE 40 MG TAB PO SCH (09:07)
[2017-07-30] MEDS: RIVAROXABAN 10 MG TAB PO SCH (09:07)
[2017-07-30 17:00] VITALS: BP 107/57
[2017-07-30] MEDS: ATORVASTATIN 40 MG TAB PO SCH (21:26)
[2017-07-30] MEDS: LEVOFLOXACIN 500 MG TAB PO SCH (21:26)
[2017-07-31 07:50] VITALS: BP 112/62
[2017-07-31] MEDS: NYSTATIN 100,000 U/GM PWD 15GM TP SCH ×2 (09:00→20:38)
[2017-07-31] MEDS: SPIRONOLACTONE 25 MG TAB PO SCH (09:23)
[2017-07-31] MEDS: FUROSEMIDE 40 MG TAB PO SCH (09:24)
[2017-07-31] MEDS: POTASSIUM CHL 20 MEQ TABCR PO SCH (09:24)
[2017-07-31] MEDS: RIVAROXABAN 10 MG TAB PO SCH (09:24)
[2017-07-31 16:55] VITALS: BP 95/54
[2017-07-31] MEDS: LEVOFLOXACIN 500 MG TAB PO SCH (20:38)
[2017-07-31] MEDS: ATORVASTATIN 40 MG TAB PO SCH (20:38)
[2017-08-01 07:44] VITALS: BP 88/59
[2017-08-01] MEDS: SPIRONOLACTONE 25 MG TAB PO SCH (08:34)
[2017-08-01] MEDS: NYSTATIN 100,000 U/GM PWD 15GM TP SCH ×2 (08:39→21:15)
[2017-08-01] MEDS: RIVAROXABAN 10 MG TAB PO SCH (08:39)
[2017-08-01] MEDS: FUROSEMIDE 40 MG TAB PO SCH (08:39)
[2017-08-01] MEDS: POTASSIUM CHL 20 MEQ TABCR PO SCH (08:39)
[2017-08-01 16:30] VITALS: BP 106/60
--- NOTE | 2017-08-01 17:44 | Miscellaneous Provider Note ---
Miscellaneous Provider Note Note SPEC #: [id number] DANYEL: 07/29/17 STATUS: COMP REQ #: [id number] RECD: 07/29/17 [facility] DR: SCAR MOSS MD SOURCE: TRACY ENTR: 07/29/[address] [facility] [address]: MARIANGEL DOLL MD [facility]: ORDERED: CULT URINE COMMENTS: Has specimen been collected/obtained? Y Procedure Result Verified URINE CULTURE Final 08/01/17 Organism 1 STAPH HOMINIS SSP HOMINIS >100,000 COL/ML S HO SB HO M.I.C. RX --------- --- AMPICILLIN/SULBACTAM R CEFAZOLIN R CIPROFLOXACIN >=8 R GENTAMICIN 1 S LEVOFLOXACIN >=8 R LINEZOLID 2 S NITROFURANTOIN <=16 S OXACILLIN 1 R BENZYLPENICILLIN >=0.5 R RIFAMPIN <=0.5 S TETRACYCLINE <=1 S TRIMETHOPRIM/SULFAMETHOXAZOLE 80 R VANCOMYCIN 2 S Reportedly still confused. Afebrile. Will start Doxycycline. BROOKE MARLEY MD Aug 01, 2017 17:44
[2017-08-01] MEDS: DOXYCYCLINE HYCL 100 MG TAB PO SCH (21:14)
[2017-08-01] MEDS: ATORVASTATIN 40 MG TAB PO SCH (21:14)
[2017-08-01] MEDS: LEVOFLOXACIN 500 MG TAB PO SCH (21:15)
[2017-08-02 07:39] VITALS: BP 109/61
[2017-08-02] MEDS: FUROSEMIDE 40 MG TAB PO SCH (09:08)
[2017-08-02] MEDS: POTASSIUM CHL 20 MEQ TABCR PO SCH (09:09)
[2017-08-02] MEDS: DOXYCYCLINE HYCL 100 MG TAB PO SCH ×2 (09:09→21:00)
[2017-08-02] MEDS: SPIRONOLACTONE 25 MG TAB PO SCH (09:09)
[2017-08-02] MEDS: RIVAROXABAN 10 MG TAB PO SCH (09:09)
[2017-08-02] MEDS: NYSTATIN 100,000 U/GM PWD 15GM TP SCH ×2 (09:12→21:00)
[2017-08-02 16:00] VITALS: BP 110/60
--- NOTE | 2017-08-02 19:27 | General Surgery Consultation ---
History of Present Illness Requesting Physician dr chandra Reason for Consult anemia and neutropenia Chief Complaint anemia and neutropenia History of Present Illness 82 yo female with a history of a. fib, pacer, cva, htn, dvt and chronic uti was found to be anemic with a low wbc. she will require a bone marrow biopsy. History Home Meds Active Scripts Atorvastatin Calcium (ATORVASTATIN CALCIUM) 40 Mg Tablet, 1 TAB PO QDAY, #9999 TAB Prov:MARIANGEL DOLL MD 11/11/16 Spironolact/Hydrochlorothiazid (SPIRONOLACTONE-HCTZ 25-25 TAB) 1 Each Tablet, 1 TAB PO QAM, #90 TAB 3 Refills Prov:MARIANGEL DOLL MD 08/19/16 Rivaroxaban 20 Mg (XARELTO 20 MG) 20 Mg Tablet, 1 TAB PO DAILY, #90 TAB 3 Refills Prov:MARIANGEL DOLL MD 08/19/16 Reported Medications Cholecalciferol (Vitamin D3) (VITAMIN D3) 1,000 Unit Tablet, 1000 UNIT PO QDAY 05/19/14 Ca Carbonate/Vitamin D3/Vit K (Citracal Soft Chew) 1 Each Tab.chew, 1 TAB PO QDAY 05/19/14 Allergies: Coded Allergies: No Known Allergies (Verified Allergy, Mild, 07/31/17) Family History: FH: CVA (cerebrovascular accident) MOTHER, , Age:67 FH: ID (myocardial infarction) BROTHER, , Age:60 Review of Systems Cardiovascular: No Chest Pain, No Palpitations, No Orthostatic Hypotension, No Other Respiratory: No Shortness of Breath, No Cough, No Wheezing, No Other Gastrointestinal: No Nausea, No Vomiting, No Diarrhea, No Dysphagia, No Constipation, No Early Satiety, No Hematemesis, No Hematochezia, No Melena, No Abdominal Pain, No Other Exam Vital Signs Vital Signs Date Time Temp Pulse Resp B/P (MAP) Pulse Ox O2 Delivery O2 Flow Rate FiO2 08/02/17 10:00 94 Room Air 08/02/17 07:39 97.6 66 16 109/61 (77) General Appearance: Alert, Awake GI: Abd Soft and Non-Tender Medical Decision Making Data Points Result Diagram: 07/30/17 0728 07/30/17 0728 Assessment and Plan Problems: (1) Anemia Status: Chronic Assessment & Plan: Her counts are low, but have remained stable. She has not required transfusion. Will repeat labs in the am prior to hematology evaluation. She has already had a B12 and folate done and these were normal. 08/02/17 will do a bone marrow biopsy thursday. Copies to: TAY MATHUR MD Venous Thromboembolism Antithrombotics Is Pt On Any Antithrombotics?: Yes TAY MATHUR MD Aug 02, 2017 19:27
[2017-08-02] MEDS: LEVOFLOXACIN 500 MG TAB PO SCH (21:00)
[2017-08-02] MEDS: ATORVASTATIN 40 MG TAB PO SCH (21:00)
[2017-08-03 08:33] VITALS: BP 104/62
[2017-08-03] MEDS: POTASSIUM CHL 20 MEQ TABCR PO SCH (08:37)
[2017-08-03] MEDS: DOXYCYCLINE HYCL 100 MG TAB PO SCH ×2 (08:37→21:09)
[2017-08-03] MEDS: FUROSEMIDE 40 MG TAB PO SCH (08:38)
[2017-08-03] MEDS: SPIRONOLACTONE 25 MG TAB PO SCH (08:40)
[2017-08-03] MEDS: NYSTATIN 100,000 U/GM PWD 15GM TP SCH ×2 (08:41→21:08)
[2017-08-03 15:36] VITALS: BP 128/64
--- NOTE | 2017-08-03 16:29 | OT ECF NOTE ---
Type of Note: 2-Week Progress Note Primary Medical Diagnosis: UTI Occupational Therapy Evaluation Date: 07-20-17 SUBJECTIVE: Prior Hospitalization: [facility] medical floor from 07/16/17 to 07/20/17. Prior Level of Function: Independent with all ADL/IADL activities, 2 weeks prior to medical admission. Prior Living Status: Apartment, Alone Community Services: Independent Home Accessibility: All needs on one level, [id number] with 4" threshold Equipment Owned: Standard walker (Son obtaining equipment prior to discharge home to include hospital bed, lift chair, toilet riser/grab bars, extended tub transfer bench, transport chair and gait belt). Medical Complications/Past Medical History: Please refer to chart for details. Psychosocial Support: Supportive son (who resides 3 hours from [place]) and two other supportive sons ([place] and [place]) Pain Scale (0-10): No pain reported at time of 2-week progress note. Pt reports she quite fatigued and recognizes confusion and memory deficits. OBJECTIVE: Strength: MMT: Right Left Shoulder Flexion [*] [*] Elbow Flexion [*] [*] Wrist Extension [*] [*] Land Surveyor [*] [*] (5= normal, 4= good, 3= fair, 2= poor, 1= trace) ROM: Both upper extremities, WFL Sensation: Intact, no concerns Functional Transfer: Assistive Device: Standard Walker Transfer Ability: SBA with v/c's for safety with walker and sit<>stands. ADL: Upper body dressing: Assistive device: Upper body dressing ability: Moderate assistance Lower body dressing: Assistive device: Cognition limiting ability for carryover regarding use of LB AE Lower body dressing ability: Moderate assistance Toileting: Assistive device: Grab bars/toilet riser Toileting ability: SBA/CGA. Pt frequently requiring v/c's to sequence steps of toileting (pulling brief/pants down, sitting, wiping, pulling brief/ pants up etc). Grooming/hygiene: Standing Assistive device: Adapted comb/brush Grooming ability: SBA with v/c's for safety Bathing: Assistive device: Shower chair Bathing ability: Max A secondary to cognition and limited carryover for sequencing bathing and ensuring bath is thorough. Standardized Assessment: Harmony Index of Activities of Daily Living- Pt. scored a 12/2O on this Index upon initial evaluation. 05/08 at 2-week progress note (08/03/17). ASSESSMENT: Pt. is an 82 year old woman who was admitted to [facility] medical floor on 07/16/17 with a UTI. Pt. resides alone in [place], in an apartment. Pt. had been independent with all activities, including driving and grocery shopping, 2 weeks prior to admit. Currently, she is plateauing with functional mobility and engagement in ADLs. She continues to be limited by cognition, requiring v/c's for problem solving, safety awareness, and sequencing all ADLs/IADLs. It is recommended that Pat discharge home with 24/7 care secondary to cognition. Pt has supportive sons who are working to obtain all recommended AE and ensure that the transition home is as supportive as possible. Problem List/Current Limitations: Pain Decreased WB Decreased activity tolerance Decreased strength Decreased sensation Decreased ROM Generalized weakness Confusion Short Term Goals: 1. Pt. to increase Gwendolyn INdex of ADL score by 2 points. Plateauing. 2. Pt. to perform showering activities with Min A. Plateauing. 3. Pt. to perform toileting activities with Mod I. Plateauing. 4. Pt. to perform g/h activities with I. Plateauing. 5. Pt. to perform dressing activities with Min A. Plateauing. 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 Rehabilitation Prognosis: Fair Barriers to Discharge: Advanced age, recurrent UTI, high fall risk, resides alone. PLAN: The patient plans to discharge home Thursday08/05/17 with 24/7 care and HH services. Plan to assist family in appropriate equipment recommendations for transition home. Thank you for this referral. If you have any questions, concerns, or comments about this report or plan, please contact me at . Darlene Collins MS, OTR/L Occupational Therapist [place]
[2017-08-03] MEDS: ATORVASTATIN 40 MG TAB PO SCH (21:09)
[2017-08-03] MEDS: LEVOFLOXACIN 500 MG TAB PO SCH (21:09)
[2017-08-04 06:42] VITALS: BP 114/53
--- NOTE | 2017-08-04 07:57 | PT ECF NOTE ---
Type of Note: Progress Note Primary Medical Diagnosis: UTI Physical Therapy Progress Note Date: 08-03-17 SUBJECTIVE: Prior Hospitalization: [facility] medical floor from 07/16/17 to 07/20/17. Prior Level of Function: Independent with all ADL/IADL activities, 2 weeks prior to medical admission. Prior Living Status: Apartment; Alone Community Services: Independent Home Accessibility: All needs on one level; Tub/shower combination Equipment Owned: Standard walker. Medical Complications/Past Medical History: Please refer to chart for details. Psychosocial Support: Supportive son (who resides 3 hours from [place]) Pain Scale (0-10): No pain reported OBJECTIVE: Strength: 3+/5 throughout, able to complete AROM against gravity in seated position ROM: (please note any abnormalities) decreased knee flexion related to discomfort and arthritis Sensation: (please note any abnormalities) pt denies any paresthesias Other Neuro findings: n/a Bed Mobility: SBA with HOB raised and bed rail, pt will have hospital bed upon d/c home Transfers: SBA with use of PUW Gait: SBA with PUW, distances vary from 200' - 20' depending on the day Stairs: Not yet attempted Other Objective Measures: Gait Speed: 0.16 m/sec ASSESSMENT: The patient has demonstrated decreased need of physical assistance for functional mobility but does require consistent verbal cues and SBA for safety and sequencing. It is recommended that she d/c with 24 hr care and home health care services. Family is working to set up home environment to provide that level of care. Problem List/Current Limitations: Decreased activity kj, Decreased strength , Decreased coordination, Decreased balance, Generalized weakness, Decreased problem solving Short Term Goals: (goals updated to accommodate new discharge plan) 1. Pt to be consistently SBA for ambulation with least restrictive device x 300' and no loss of balance noted. 2. Pt to be consistently SBA for sit to/from stand transfers from a variety of surfaces with least restrictive device. 3. Pt to be consistently SBA with supine to/from sit transfers with least restrictive device and proper safety awareness skills. Mcfp Goals: Pt to return to least restrictive environment with adequate level of assistance. Patient Goals: To return to [facility] Prognosis: Good Barriers for Discharge: medical comorbidities PLAN: The patient will benefit from skilled physical therapy services 5 times per week for 2 weeks including: Therapeutic Exercise Therapeutic Activities, Transfer Training, Gait Training, ADL's, Safety Training , Pt/Caregiver Training, Bed Mobility Thank you for this referral. If you have any questions, concerns, or comments about this report or plan, please contact me at . Adwoa Cantrell, PT, DPT [facility]
[2017-08-04] MEDS: FUROSEMIDE 40 MG TAB PO SCH (09:00)
[2017-08-04] MEDS: SPIRONOLACTONE 25 MG TAB PO SCH (09:00)
--- NOTE | 2017-08-04 09:20 | Medical Nutrition Therapy ---
Nutrition Anthropometrics Height (Inches): 63.00 Height (Calculated Centimeters: 160.975156 Weight (Pounds): 146 Weight (Calculated Kilograms): 66.224 BMI Calculated: 29.23 Ancelmo Nutrition Score: Adequate Ancelmo Nutrition Risk Score: 16 Dietary Referral Nutrition Risk Factors: Unplanned Loss >10lbs Nutrition Risk Comment: states weight loss of approx 10 lbs recently Physical Findings Physical Appearance: Overweight BMI 25-29 Skin Appearance Skin Appearance: Edema Edema Location Modifier: Both Edema Location: Ankle Type of Edema: Degree of Edema: 1+ Gastrointestinal Symptoms GI Symtoms: Constipation Tube Present: Bowel Sounds: Recent Bowel Pattern: Stool Characteristics: Nutritional Diagnosis Nutritional Risk Acuity 3: Fair Appetite Past Medical History: HX of pacemaker, Renal infarct, OAB (overactive bladder), Recurrent urinary tract infection, Deep vein thrombosis, Hypertension, hyperparathyroidism, Stroke Nutritional Acuity: 3-Mild Nutrition Diagnosis: Increased Nutrient Needs Nutrition Etiology: Physiological Causes Nutrition Problem/Etiology/Sym: Increased Nutrient Needs related to increased demand for nutrients secondary to infection AEB low albumin status indicating increased stress and increased metabolic needs. Energy Requirement: 1630 (Frio-St Jeor: Actual BW X 1.4) Protein Requirement: 74 (Actual BW Kg X 1.0) Fluid Requirement: 1630 Diet Type: Diet as Tolerated ROSS/REG Nutrition Intervention: Cont diet as ordered Drug: Diuretics Drug/Nutrition Recommendations: Patient Taking K+, Check Serum K+ Optional Order Time?: No Diet Comment To RSA: PLEASE PUT PROTEIN POWDER IN APPROPRIATE FOODS PLEASE OFFER NUTR SUPPLEMENT Nutrition Monitoring & Eval RD Patient Assessment Time: [address] Assessment Type: RD Re-Assessment Patient Nutrition Acuity: 3-Mild Follow Up Date: Aug 11, 2017 Nutritional Comment: Pt originally admitted to Med/Surg floor for UTI and weakness. Transferred to ECF for continued management. Pt overwt with BMI of 29.23. Alb 2.5, BNP 199, TIBC 216, Low H/H. Receiving ROSS. On Medical floor, pt consumed 25-100% of meals. Follow wt, labs, intake, etc. 07/27 Pt continues on ROSS with 55% average intakes of regular portions over the last 3 days. No new labs available. Pt taking K+ depleting diuretic. K+ WNL. Pt has had 15 lb wt loss over 4 days. This is most likely due to edema and lasix. BMI 26.7. Will continue to montior wt, labs, intake, etc. 08/03 Pt continues on ROSS averaging bites to 50% of regular portions. Pt continues on K+ depleting diuretic and KCl. K+ WNL. No new wt available. Pt has 1+ pitting edema. Notable labs include low H/H, total pro 5.1, alb 2.3, Na 135, and BUN 19. Pt will have bone marrow biopsy tomorrow due to anemia. Will offer nutr supplement, put protein powder in appropriate foods, and continue to monitor. SHARLA MUSTAFA Aug 03, 2017 12:00
[2017-08-04 10:29] VITALS: BP 91/34
[2017-08-04 10:41] VITALS: BP 76/38
[2017-08-04] MEDS: POTASSIUM CHL 20 MEQ TABCR PO SCH (10:43)
[2017-08-04] MEDS: DOXYCYCLINE HYCL 100 MG TAB PO SCH ×2 (10:43→21:04)
[2017-08-04] MEDS: NYSTATIN 100,000 U/GM PWD 15GM TP SCH ×2 (10:44→21:00)
[2017-08-04 11:29] VITALS: BP 102/44
[2017-08-04 15:55] VITALS: BP 104/57
[2017-08-04] MEDS: ATORVASTATIN 40 MG TAB PO SCH (21:04)
[2017-08-05 08:00] VITALS: BP 110/52
[2017-08-05] MEDS: SPIRONOLACTONE 25 MG TAB PO SCH (09:00)
[2017-08-05] MEDS: DOXYCYCLINE HYCL 100 MG TAB PO SCH (09:17)
[2017-08-05] MEDS: FUROSEMIDE 40 MG TAB PO SCH (09:17)
[2017-08-05] MEDS: NYSTATIN 100,000 U/GM PWD 15GM TP SCH (09:17)
[2017-08-05] MEDS: POTASSIUM CHL 20 MEQ TABCR PO SCH (09:17)
--- NOTE | 2017-08-05 10:38 | SLP DISCHARGE NOTE ---
SPEECH THERAPY DC Summary Patient Name: Acacia Mchugh Date of Evaluation: 08-05-17 Patient : 1935 Clinician: Judy Calzada M.S., ERVIN-SERVICE DELIVERY MANAGER, DEBORA Riley Treatment Dx: Mild Cognitive Deficit BACKGROUND The patient is an 82 year old female experiencing cognitive-linguistic deficit. She and her family reported recent changes to functional cognition reducing independence with IADL's at home. Pt is discharging today. She will be returning home with [facility] care. SUMMARY COGNITIVE / LINGUISTIC ASSESSMENT The Mini-Mental State Examination (MMSE) was re-administered with the following results: MMSE Total Score: 26/30 = Significant improvement over initial MMSE score. Questionably significant. Pt presents with mild deficits that may impact more demanding ADLs. Previous MMSE Total Score: 17/30 Functional Communication Deficits: The patient does not have functional cognitive/communication for safety and independence in the home and community including communication of medical details/instructions. She will require moderate assistance to remain safely at home. RECOMMENDATIONS Discharge to home with Home Health Speech Therapy The patient was working on the following goals during ST at [facility] Short Term Goals 1. The patient will perform immediate/short term memory tasks at 90% with min assist for successful communication related to patient independence / safety / social interaction / care and comfort/ medical details / progress /personal education goals 2. The patient will perform executive function (ie. thought organization, planning, problem solving) for successful functional communication related to patient independence / safety / social interaction / care and comfort/ medical details / progress /personal education goals with min assist at 90%. 3. The patient will perform writing/reading tasks with min assist at 90% for successful functional communication related to patient independence / safety / social interaction / care and comfort/ medical details / progress /personal education goals with min assist. Long-Term Goals 1. The patient will demonstrate functional cognitive communication for safety and independence Thank you for this referral. Please call [phone] to contact . Judy Calzada M.S., CCC-SERVICE DELIVERY MANAGER [place]
--- NOTE | 2017-08-05 12:39 | Hospitalist Depart ---
Discharge Summary Reason for Hosp/Final Diag: (1) Weakness Status: Acute Hospital Course & Plan: The patient was transferred from the medical floor to [facility] for ongoing rehabilitation. Physical and occupational therapy worked with the patient. She will continue to work with physical and occupation therapy through Home Health after discharge. (2) UTI (urinary tract infection) Status: Acute Hospital Course & Plan: On admission to the medical floor, her urine did have large leukocytes and WBC clumps. She had been on chronic suppressive treatment with Bactrim as an outpatient. This was stopped at admission and she was placed on levofloxacin. Her culture grew Aerococcus. Sensitivities were not available. She was transferred to [facility] for rehabilitation. She completed her course of Levaquin. Repeat urine culture grew Staph hominis at >100,000 col/ HPF. She was treated with doxycycline. (3) Confusion Status: Resolved Hospital Course & Plan: A CT of the head on admission was unremarkable. The patient improved with treatment of her infection. 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 She will need 24 hour care at home. (4) Anemia Status: Chronic Hospital Course & Plan: The patients hemoglobin and hematocrit counts were low , but remained stable during her stay on ECF. She did not require transfusion. She did see hematology and a bone marrow biopsy was done. Results are pending at the time of discharge. She will follow up with Dr. Mc in about 2 weeks. (5) Edema Onset Date: 10/26/2014 Status: Chronic Hospital Course & Plan: She was on chronic treatment with spironolactone/HCTZ. Lasix was added in place of her hydrochlorothiazide. She had nice improvement in her lower extremity edema on this regimen. (6) Chronic anticoagulation Status: Chronic Hospital Course & Plan: She was continued on chronic treatment with Xarelto for a history of DVT and atrial fibrillation. The Xarelto was stopped briefly for her bone marrow biopsy and will be restarted at discharge. (7) Recurrent urinary tract infection Status: Chronic Hospital Course & Plan: Bactrim was discontinued. (8) Pancytopenia Status: Chronic Hospital Course & Plan: This was initially believed to be secondary to chronic Bactrim. The Bactrim was discontinued. It appeared however after review of the EMR, that the pancytopenia predated the Bactrim. Her counts did not improve off of Bactrim either. She did see hematology as noted above. (9) Chest pain Status: Acute Hospital Course & Plan: The patient had an episode of chest pain while on ECF. Work up was negative. The lyubov resolved. Departure Weight (Pounds): 146 Weight (Ounces): 11.0 Result Diagram: 07/30/17 0707/30/17727 Item Value Date Time Troponin I 0.018 ng/ml 07/23/17827 Troponin I 0.017 ng/ml 07/23/17 1439 Urine Color Yellow 07/29/172149 Urine Clarity Clear 07/29/172149 Urine pH 5.0 pH 07/29/172149 Urine Specific [place] 1.013 07/29/17 215 Urine Protein Negative mg/dL 07/29/172149 Urine Glucose (UA) Negative mg/dL 07/29/172149 Urine Ketones Negative mg/dL 07/29/17 215 Urine Blood Moderate 07/29/17 2150 Urine Nitrite Negative 07/29/17 2150 Urine Bilirubin Negative 07/29/17 2150 Urine Urobilinogen Negative mg/dL 07/29/17 2150 Urine Leukocyte Esterase Negative 07/29/17 2150 Urine RBC 13 /HPF 07/29/17 2150 Urine WBC 13 /HPF 07/29/17 2150 Urine Squamous Epithelial Cells Moderate /LPF H 07/29/17 2150 Urine Bacteria Negative /HPF 07/29/17 2150 Urine Mucus None /HPF 07/29/17 2150 Neutrophils % (Manual) 23 % L 07/30/17 07 Band Neutrophils % 19 % 07/30/17 0728 Lymphocytes % (Manual) 21 % 07/30/17 07 Atypical Lymphocytes % 20 % 07/30/17 0728 Monocytes % (Manual) 8 % 07/30/17 0728 Eosinophils % (Manual) 3 % 07/30/17 07 Basophils % (Manual) 3 % H 07/30/17 07 Metamyelocytes % 3 % 07/30/17 07 Anisocytosis 1+ 07/30/17 07 Peripheral Blood Smear Yes Y/N 07/30/17 07 [facility]* [address] [place] [address] ROBERTA OBRIEN M.D., DIRECTOR OF LABORATORY SERVICES KASI HALL M.D., PATHOLOGIST RUN DATE: 08/01/17 Specimen Inquiry Report PAGE 1 RUN TIME: 0950 PATIENT: RICKEY RUANO ACCT: [id number] LOC: [facility] U : [id number] AGE/SX: 82/F ROOM: [facility] REG : 07/20/[address] [facility] [address]: SCAR MOSS MD : 1935 BED: 365 DIS : STATUS: ADM IN TLOC: SPEC #: [id number] DANYEL: 07/29/17 STATUS: COMP REQ #: [id number] RECD: 07/29/[address] [facility] [address]: SCAR MOSS MD SOURCE: TRACY ENTR: 07/29/[address] [facility] [address]: MAR[facility]EL [facility]LL [facility] ORDERED: CULT URINE COMMENTS: Has specimen been collected/obtained? Y Procedure Result Verified URINE CULTURE Final 08/01/17-0950 Organism 1 STAPH HOMINIS SSP HOMINIS >100,000 COL/ML S HO SB HO M.I.C. RX --------- --- AMPICILLIN/SULBACTAM R CEFAZOLIN R CIPROFLOXACIN >=8 R GENTAMICIN 1 S LEVOFLOXACIN >=8 R LINEZOLID 2 S NITROFURANTOIN <=16 S OXACILLIN 1 R BENZYLPENICILLIN >=0.5 R RIFAMPIN <=0.5 S TETRACYCLINE <=1 S TRIMETHOPRIM/SULFAMETHOXAZOLE 80 R VANCOMYCIN 2 S END OF REPORT Imaging FACILITY: [facility] PATIENT NAME: Rickey Ruano : 1935 MR: [id number] V: [id number] EXAM DATE: ORDERING PHYSICIAN: KVNG MOSS TECHNOLOGIST: Location: [facility] Patient: Rickey Ruano : 1935 Visit/Account:[id number] Date of Sevice: 07/23/2017 EXAMINATION: Chest radiograph HISTORY: New onset chest tightness COMPARISON: 07/16/2017 FINDINGS: The cardiac silhouette is normal in size. Unchanged pacemaker. No pneumothorax. Clear lungs. No acute osseous abnormality. Convexity left thoracolumbar scoliosis. IMPRESSION: No acute finding. Report Dictated By: Jose Luis Holguin MD at 07/23/2017 9:07 AM Report E-Signed By: Jose Luis Holguin MD at 07/23/2017 9:08 AM WSN:[id number] EKG FACILITY: [facility] PATIENT NAME: RICKEY RUANO : [id number] MR: [id number] V: [id number] EXAM DATE: ORDERING PHYSICIAN: SCAR MSOS TECHNOLOGIST: NEELA Parks Reason : CHEST PAIN Blood Pressure : / mmHG Vent. Rate : 060 BPM Atrial Rate : 060 BPM P-R Int : 214 ms QRS Dur : 088 ms QT Int : 406 ms P-R-T Axes : 000 063 045 degrees QTc Int : 406 ms Sinus rhythm with 1st degree AV block Otherwise normal ECG When compared with ECG of 16-JUL-2017 17:18, Previous ECG has undetermined rhythm, needs review QT has shortened Confirmed by SCAR PATEL ([id number]) on 07/23/2017 9:32:35 AM Referred By: AJAY Confirmed By:SCAR PATEL 0824 T: CARLJULI/ Condition: Improved Discharge: Home, Home Health PT/OT Follow Up For: PT Evaluation and Treat, ST Evaluation and Treat, OT Evaluation and Treat Home Health RN Follow Up For: Nursing Assessment Home Health [facility] Follow Up For: ADL Assistance Discharge Code Status: DNR, DNI Time Spent: < 30 min Consults Hematology, general surgery. Discharge Instructions Home Meds Active Scripts Spironolactone (SPIRONOLACTONE) 25 Mg Tablet, 25 MG PO QDAY, #90 TAB Prov:SACR MOSS MD 08/05/17 Furosemide (FUROSEMIDE) 40 Mg Tablet, 40 MG PO QDAY, #90 TAB Prov:SCAR MOSS MD 08/05/17 Doxycycline Hyclate (DOXYCYCLINE HYCLATE) 100 Mg Tablet, 100 MG PO BID, #6 TAB Prov:SCAR MOSS MD 08/05/17 Potassium Chloride (POTASSIUM CHLORIDE) 20 Meq Tab.er.prt, 20 MEQ PO QDAY, #90 TAB Prov:SCAR MOSS MD 08/05/17 Acetaminophen (MAPAP) 325 Mg Tablet, 650 MG PO Q6H Y for FEVER/PAIN, #30 TAB Prov:SCAR MOSS MD 08/05/17 Atorvastatin Calcium (ATORVASTATIN CALCIUM) 40 Mg Tablet, 1 TAB PO QDAY, #9999 TAB Prov:MARIANGEL DOLL MD 11/11/16 Rivaroxaban 20 Mg (XARELTO 20 MG) 20 Mg Tablet, 1 TAB PO DAILY, #90 TAB 3 Refills Prov:MARIANGEL DOLL MD 08/19/16 Reported Medications Cholecalciferol (Vitamin D3) (VITAMIN D3) 1,000 Unit Tablet, 1000 UNIT PO QDAY 05/19/14 Ca Carbonate/Vitamin D3/Vit K (Citracal Soft Chew) 1 Each Tab.chew, 1 TAB PO QDAY 05/19/14 Discontinued Scripts Spironolact/Hydrochlorothiazid (SPIRONOLACTONE-HCTZ 25-25 TAB) 1 Each Tablet, 1 TAB PO QAM, #90 TAB 3 Refills Prov:MARIANGEL DOLL MD 08/19/16 Follow up Referrals: Family Practice - In Two Weeks @ [facility] with Clarissa Dominique Md Diet: Regular Activity: As Tolerated Special Instructions: The patient is to follow up with Dr. Carranza as previously scheduled. Copies to: RAJAN CARRANZA MD; CLARISSA DOMINIQUE MD Venous Thromboembolism Antithrombotics Is Pt On Any Antithrombotics?: Yes [id number] Certification Face to Face Home Health Certification Institutional Provider conducted the atlv-yi-[id number] encounter. Electronic Undersigning Physician Certifies Home Health. I certify that the patient has been under my care and that I had a [id number] encounter that meets the physician noau-be-enjk encounter requirements with this patient. This patient is home-bound due to safety issues and continues to require assistance with ADL's. I certify that based on my findings, that Nursing, Aides and the following Home Health services are medically necessary: Physical therapy, occupational therapy and speech therapy. Medical Necessity: Nursing, Rehab Date Face to Face Conducted: Aug 05, 2017 SCAR MOSS MD Aug 05, 2017 12:38
[2017-08-05] MEDS ORDERED: ACET-2007 PO (12:53)
[2017-08-05] MEDS ORDERED: POTA20TA94 PO (12:54)
[2017-08-05] MEDS ORDERED: DOXY-179 PO (12:57)
[2017-08-05] MEDS ORDERED: FURO-47 PO (13:06)
[2017-08-05] MEDS ORDERED: SPIR25TA78 PO (13:17)
--- NOTE | 2017-08-05 13:26 | OT ECF NOTE ---
Type of Note: Discharge Note Primary Medical Diagnosis: UTI Occupational Therapy Evaluation Date: 07-20-17 SUBJECTIVE: [facility]17 to 07/20/17. Prior Level of Function: Independent with all ADL/IADL activities, 2 weeks prior to medical admission. Prior Living Status: Apartment, Alone Community Services: Independent Home Accessibility: All needs on one level, [id number] with 4" threshold Equipment Owned: Standard walker (Son obtaining equipment prior to discharge home to include hospital bed, lift chair, toilet riser/grab bars, extended tub transfer bench, transport chair and gait belt). Medical Complications/Past Medical History: Please refer to chart for details. Psychosocial Support: Supportive son (who resides 3 hours from [place]) and two other supportive sons ([place] and [place]) Pain Scale (0-10): No pain reported at time of discharge. Pt reports she quite fatigued and recognizes confusion and memory deficits. OBJECTIVE: Strength: MMT: Right Left Shoulder Flexion [*] [*] Elbow Flexion [*] [*] Wrist Extension [*] [*] Test Rider [*] [*] (5= normal, 4= good, 3= fair, 2= poor, 1= trace) ROM: Both upper extremities, WFL Sensation: Intact, no concerns Functional Transfer: Assistive Device: Standard Walker Transfer Ability: SBA with v/c's for safety with walker and sit<>stands. ADL: Upper body dressing: Assistive device: Upper body dressing ability: Moderate assistance Lower body dressing: Assistive device: Cognition limiting ability for carryover regarding use of LB AE Lower body dressing ability: Moderate assistance Toileting: Assistive device: Grab bars/toilet riser Toileting ability: SBA/CGA. Pt frequently requiring v/c's to sequence steps of toileting (pulling brief/pants down, sitting, wiping, pulling brief/ pants up etc). Grooming/hygiene: Standing Assistive device: Adapted comb/brush Grooming ability: SBA with v/c's for safety Bathing: Assistive device: Shower chair Bathing ability: Max A secondary to cognition and limited carryover for sequencing bathing and ensuring bath is thorough. Standardized Assessment: Harmony Index of Activities of Daily Living- Pt. scored a 12/2O on this Index upon initial evaluation. 10/20 at 2-week progress note (08/03/17). ASSESSMENT: Pt. is an 82 year old woman who [facility]17 with a UTI. Pt. resides alone in [place], in an apartment. Pt. had been independent with all activities, including driving and grocery shopping, 2 weeks prior to admit. Currently, she is plateauing with functional mobility and engagement in ADLs. She continues to be limited by cognition, requiring v/c's for problem solving, safety awareness, and sequencing all ADLs/IADLs. It is recommended that Pat discharge home with 24/7 care secondary to cognition. Pt has supportive sons who are working to obtain all recommended AE and ensure that the transition home is as supportive as possible. Problem List/Current Limitations: Pain Decreased WB Decreased activity tolerance Decreased strength Decreased sensation Decreased ROM Generalized weakness Confusion Short Term Goals: 1. Pt. to increase Gwendolyn INdex of ADL score by 2 points. Plateauing. (Not Met) 2. Pt. to perform showering activities with Min A. Plateauing. (Not Met) 3. Pt. to perform toileting activities with Mod I. Plateauing. (Not Met) 4. Pt. to perform g/h activities with I. Plateauing. (Not Met) 5. Pt. to perform dressing activities with Min A. Plateauing. (Not Met) Care Home Goals: Return home with 24/7 care and HH services Patient Goals: Return home. Rehabilitation Prognosis: Fair Barriers to Discharge: Advanced age, recurrent UTI, high fall risk, resides alone. PLAN: The patient plans to discharge home with 24/7 care and HH services. Plan to assist family in appropriate equipment recommendations for transition home. Thank you for this referral. If you have any questions, concerns, or comments about this report or plan, please contact me at . Darlene Collins MS, OTR/L Occupational Therapist [place]
[2017-08-06] MEDS ORDERED: RIVAROXABAN 10 MG TAB PO SCH (09:00)
--- NOTE | 2017-08-06 13:10 | PT ECF NOTE ---
Type of Note: Discharge Note Primary Medical Diagnosis: UTI Physical Therapy Progress Note Date: 08-03-17 SUBJECTIVE: [facility] from 07[facility]16/17 to 07/20/17. Prior Level of Function: Independent with all ADL/IADL activities, 2 weeks prior to medical admission. Prior Living Status: Apartment; Alone Community Services: Independent Home Accessibility: All needs on one level; Tub/shower combination Equipment Owned: Standard walker. Medical Complications/Past Medical History: Please refer to chart for details. Psychosocial Support: Supportive son (who resides 3 hours from [place]) Pain Scale (0-10): No pain reported OBJECTIVE: Strength: 4-/5 throughout, able to complete AROM against gravity in seated position ROM: (please note any abnormalities) decreased knee flexion related to discomfort and arthritis Sensation: (please note any abnormalities) pt denies any paresthesias Other Neuro findings: n/a Bed Mobility: SBA with HOB raised and bed rail, pt will have hospital bed upon d/c home Transfers: SBA with use of PUW Gait: SBA with PUW x 300' on average Stairs: Steps not addressed as pt will be returning to [facility]. Other Objective Measures: TUG test at 55 seconds Gait Speed: 0.16 m/sec ASSESSMENT: The patient has demonstrated decreased need of physical assistance for functional mobility but does require consistent verbal cues and SBA for safety and sequencing. It is recommended that she d/c with 24 hr care and home health care services. Family is working to set up home environment to provide that level of care. Problem List/Current Limitations: Decreased activity kj, Decreased strength , Decreased coordination, Decreased balance, Generalized weakness, Decreased problem solving Short Term Goals: (goals updated to accommodate new discharge plan) 1. Pt to be consistently SBA for ambulation with least restrictive device x 300' and no loss of balance noted.- Met 2. Pt to be consistently SBA for sit to/from stand transfers from a variety of surfaces with least restrictive device. - Met 3. Pt to be consistently SBA with supine to/from sit transfers with least restrictive device and proper safety awareness skills. - Met Airline Captain Goals: Pt to return to least restrictive environment with adequate level of assistance. - met Patient Goals: To return to [facility] Rehabilitation Prognosis: Good Barriers for Discharge: medical comorbidities PLAN: The patient will benefit from further home healthcare to address strengthening and balance within her home environment. Thank you for this referral. If you have any questions, concerns, or comments about this report or plan, please contact me at . H. Meena Anderson, PT, MPT [facility]
== END 2017-08-05 15:00 | disposition home health service (06) | DRG 690 ==
LOC: ECF 13:20
PROVIDERS: ADMIT Internal Medicine; ATTEND Internal Medicine
DX: N39.0 Urinary tract infection, site not specified (principal); D61.818 Other pancytopenia; E21.0 Primary hyperparathyroidism; I10 Essential (primary) hypertension; I48.2 Chronic atrial fibrillation; B95.7 Other staphylococcus as the cause of diseases classified elsewhere; R07.9 Chest pain, unspecified; R60.9 Edema, unspecified; N32.81 Overactive bladder; R53.1 Weakness; Z79.01 Long term (current) use of anticoagulants; Z95.0 Presence of cardiac pacemaker; Z90.49 Acquired absence of other specified parts of digestive tract; Z90.710 Acquired absence of both cervix and uterus; Z86.718 Personal history of other venous thrombosis and embolism; Z87.440 Personal history of urinary (tract) infections; Z87.891 Personal history of nicotine dependence
CPT/HCPCS: 36415; 71045; 81001; 82040; 82247; 82310; 82374; 82435; 82565; 82947; 84075; 84132; 84155; 84295; 84450; 84460; 84484; 84520; 85025; 87088; 87186; 93005; 97161; 97165

== ENCOUNTER → 2017-08-04 | Day surgery (SDC) | payer MEDICARE, OTHER ==
[2017-07-20 16:11] VITALS: Ht 160 cm; Wt 65.8 kg
[~2017-08-04] VITALS: Ht 160 cm; Wt 65.8 kg
[2017-08-04] VITALS (7 sets, daily range): BP systolic 87–121; BP diastolic 40–53
[~2017-08-04] MED LIST changes: +ACET-2007 PO; +DOXY-179 PO; +FAMOTIDINE 20 MG TAB PO ONE; +HEPARIN SOD LCK FLSH 100 UN/ML ONE; +LIDOCAINE/SOD BICARB 8.4% SYR ID ONE; +MIDAZOLAM 2 MG/2 ML VIAL IVP PRN; +NORMOSOL R SOLN(*) 1000 ML BAG 1,000 ML IV PRN; +POTA20TA94 PO
[2017-08-04 07:53] LABS: PLATELET COUNT, AUTOMATED 181 K/uL (150-450)
--- NOTE | 2017-08-04 08:35 | Post Operative Progress Note ---
Post Operative Progress Note Date: Aug 04, 2017 Time: 08:34 Surgeon: anish Anesthesia: dr lentz Pre-Op Diagnosis: pancytopenia Post-Op Diagnosis: same Procedure(s): bone marrow biopsy TAY MATHUR MD Aug 04, 2017 08:35
--- NOTE | 2017-08-04 08:37 | Short(Outpt) Discharge Summary ---
Discharge Summary Reason for Hosp/Final Diag: (1) Pancytopenia Status: Chronic Hospital Course & Plan: bone marrow biopsy Departure Discharge to: [facility] Discharge Instructions Home Meds Active Scripts Atorvastatin Calcium (ATORVASTATIN CALCIUM) 40 Mg Tablet, 1 TAB PO QDAY, #9999 TAB Prov:MARIANGEL DOLL MD 11/11/16 Spironolact/Hydrochlorothiazid (SPIRONOLACTONE-HCTZ 25-25 TAB) 1 Each Tablet, 1 TAB PO QAM, #90 TAB 3 Refills Prov:MARIANGEL DOLL MD 08/19/16 Rivaroxaban 20 Mg (XARELTO 20 MG) 20 Mg Tablet, 1 TAB PO DAILY, #90 TAB 3 Refills Prov:MARIANGEL DOLL MD 08/19/16 Reported Medications Cholecalciferol (Vitamin D3) (VITAMIN D3) 1,000 Unit Tablet, 1000 UNIT PO QDAY 05/19/14 Ca Carbonate/Vitamin D3/Vit K (Citracal Soft Chew) 1 Each Tab.chew, 1 TAB PO QDAY 05/19/14 Diet: Regular Activity: As Tolerated Special Instructions: leave pt supine for one hour TAY MATHUR MD Aug 04, 2017 08:37
--- NOTE | 2017-08-07 13:56 | OPERATIVE REPORT 1 ---
EVENT DATE: August 04, 2017 SURGEON: Kwesi Muñoz MD ANESTHESIOLOGIST: Shivani Evans MD ANESTHESIA: Sedation. PREOPERATIVE DIAGNOSIS Anemia and neutropenia. POSTOPERATIVE DIAGNOSIS Anemia and neutropenia. PROCEDURE PERFORMED Bone marrow biopsy. DESCRIPTION OF PROCEDURE The patient was placed in the left lateral decubitus position. Her posterior lower back and iliac area were prepped and draped in a sterile fashion. The skin was anesthetized with 1% Xylocaine. A marcie was made in the skin with a # 11 blade over the posterior superior iliac crest. We placed the bone marrow biopsy needle into position and advanced it into the ilium. We then obtained an aspiration of bone marrow. This was given to the tech, who indicated that it seemed to be a good specimen. We then took two cores of the marrow. We then placed a sterile bandage and placed the patient in the supine position. The patient tolerated the procedure well. No apparent complication. <Electronically signed by KWESI MUÑOZ MD> D/ 0724 [id number] YOHANNES/PAYAM CC: [facility]; RAJAN THURSTON MD; KWESI MUÑOZ MD MTDD
== END ==
LOC: OR 02:28
PROVIDERS: ATTEND Surgery
DX: D64.9 Anemia, unspecified (principal); D70.9 Neutropenia, unspecified
CPT/HCPCS: 36415; 38221; 85025; A9270; J1642

== ENCOUNTER → 2017-08-28 | Outpatient (CLI) | payer MEDICARE, OTHER ==
[2017-07-20 16:11] VITALS: BMI 29.2
[~2017-08-28] MED LIST changes: -FAMOTIDINE 20 MG TAB PO ONE; -HEPARIN SOD LCK FLSH 100 UN/ML ONE; -LIDOCAINE/SOD BICARB 8.4% SYR ID ONE; -MIDAZOLAM 2 MG/2 ML VIAL IVP PRN; -NORMOSOL R SOLN(*) 1000 ML BAG 1,000 ML IV PRN
[2017-08-28 10:56] LABS: LDL CHOLESTEROL 36 mg/dl
== END ==
LOC: SPU 10:24
PROVIDERS: ATTEND Internal Medicine Cardiovascular Disease
DX: I63.9 Cerebral infarction, unspecified (principal); I10 Essential (primary) hypertension; Z95.0 Presence of cardiac pacemaker
CPT/HCPCS: 82310; 82374; 82435; 82465; 82565; 82947; 83718; 83735; 84132; 84295; 84478; 84520

== ENCOUNTER → 2017-10-27 | Outpatient (RCR) | payer MEDICARE, OTHER ==
[2017-07-20 16:11] VITALS: Ht 160 cm; Wt 66.5 kg
--- NOTE | 2017-07-30 21:17 | CONSULTATION ---
EVENT DATE: July 30, 2017 REFERRING PHYSICIAN Zo Foster MD REASON FOR CONSULTATION Evaluation and management of pancytopenia. HISTORY OF PRESENT ILLNESS Patient is an old, very nice lady who was admitted to the hospital and was found to have pancytopenia. Her CBC showed white count 1.9, hemoglobin 8.6, hematocrit 26.4, platelets 172,000 and MCV 97.4. She had some hematological workup including serum iron which was normal at 90. TIBC was 216, iron saturation 41.7%. Vitamin B12 was more than 1500 and folate level was more than 22.3. Patient was referred for evaluation and management of pancytopenia. PAST MEDICAL HISTORY 1. History of stroke, 2001. 2. DVT, 2014. 3. Atrial fibrillation, 2010. 4. Hypertension, 2007. 5. Right renal infarct, 2008. 6. Overactive bladder, 2005. 7. Hyperparathyroidism with hypercalcemia. PAST SURGICAL HISTORY 1. Cataract extraction bilaterally. 2. Pacemaker placement, 2008. 3. Appendectomy, 2008. 4. Cholecystectomy, 1993. 5. Hysterectomy with oophorectomy. 6. Left breast biopsy in the past. FAMILY HISTORY Negative for cancer or blood diseases. SOCIAL HISTORY Patient is a . She had four sons and one daughter. 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 Denies any abuse of tobacco, alcohol or drugs. CURRENT MEDICATIONS 1. Atorvastatin 40 mg daily. 2. Spironolactone/hydrochlorothiazide 25/25 one tablet daily. 3. Xarelto 20 mg daily. 4. Vitamin D 1000 units daily. 5. Calcium carbonate and vitamin D3 chewable tablet one tablet daily. ALLERGIES No known drug allergies. REVIEW OF SYSTEMS CONSTITUTIONAL: No appetite or weight change. No fever, chills or sweating. No recent infection. HEENT: Ears: No tinnitus or hearing problem. Nose: Patient has nasal discharge. Throat: No sore throat or mouth ulcers. Eyes: No diplopia or visual changes. RESPIRATORY: She has some shortness of breath. CARDIOVASCULAR: No chest pain, orthopnea, or paroxysmal nocturnal dyspnea (PND) . No edema. No palpitations. GASTROINTESTINAL: No nausea or vomiting. No diarrhea or constipation. No change in bowel movements. No heartburn or swallowing difficulties. No abdominal pain. No jaundice. No hematemesis, melena or rectal bleeding. GENITOURINARY: No hematuria or dysuria. NEUROLOGICAL: Patient has occasional headache. HEMATOLOGIC/LYMPHATIC: She bruises easily. She is weak, tired and fatigued. SKIN: No skin rash or lumps. PSYCHIATRIC: No anxiety or depression. PHYSICAL EXAMINATION GENERAL: Looks stable. Well-developed, well-nourished, and in no acute distress. HEENT: Head: Atraumatic. No sinus tenderness to palpation. Eyes: No icterus or conjunctivitis. Mouth and throat: No oral thrush or mucositis. NECK: Supple. No cervical or supraclavicular lymphadenopathy. LUNGS: Clear to auscultation and percussion bilaterally. HEART: Regular rate and rhythm. No gallops, murmurs, clicks or rubs. ABDOMEN: Soft and lax. No tenderness. No hepatosplenomegaly. No masses. EXTREMITIES: Patient has bilateral edema. LYMPHATICS: No peripheral lymphadenopathy. NEUROLOGICAL: Conscious, alert and oriented times three. No focal motor or sensory deficits. PSYCHIATRIC: Mood and affect appear normal. SKIN: No skin rash, bruise or purpuric eruption. ASSESSMENT Pancytopenia with white count 1.9 and and hemoglobin 8.6 with normal iron studies, B12 and folate level. With her age, myelodysplastic syndrome is high likely on the list. I am planning to check her serum protein electrophoresis, and I will proceed with bone marrow aspiration biopsy with flow cytometry, cytogenetic analysis and molecular studies if required to make the diagnosis. Further evaluation and management will depend on the result of the bone marrow aspiration biopsy. I explained that to the patient and two of her sons and they are agreeable with the plan of management. I will see her as an outpatient in two weeks from now for further evaluation and management. PLAN 1. Serum protein electrophoresis. 2. Bone marrow aspiration biopsy with flow cytometry, cytogenetic, FISH and molecular studies as indicated. 3. Patient is to contact us for any new concerns or complaints. 4. Arrange for outpatient visit in two weeks after bone marrow biopsy. OLAMIDE
--- NOTE | 2017-08-04 23:32 | OPERATIVE REPORT 1 ---
EVENT DATE: August 04, 2017 SURGEON: Kwesi Muñoz MD ANESTHESIOLOGIST: Shivani Evans MD ANESTHESIA: Sedation. PREOPERATIVE DIAGNOSIS Anemia and neutropenia. POSTOPERATIVE DIAGNOSIS Anemia and neutropenia. PROCEDURE PERFORMED Bone marrow biopsy. DESCRIPTION OF PROCEDURE The patient was placed in the left lateral decubitus position. Her posterior lower back and iliac area were prepped and draped in a sterile fashion. The skin was anesthetized with 1% Xylocaine. A marcie was made in the skin with a # 11 blade over the posterior superior iliac crest. We placed the bone marrow biopsy needle into position and advanced it into the ilium. We then obtained an aspiration of bone marrow. This was given to the tech, who indicated that it seemed to be a good specimen. We then took two cores of the marrow. We then placed a sterile bandage and placed the patient in the supine position. The patient tolerated the procedure well. No apparent complication. MTDD
[2017-08-14] VITALS (8 sets, daily range): BP systolic 94–105; BP diastolic 34–52
[2017-08-14 11:58] LABS: PLATELET COUNT, AUTOMATED 178 K/uL (150-450)
--- NOTE | 2017-08-14 19:18 | ONCOLOGY FOLLOW UP NOTE ---
EVENT DATE: August 14, 2017 DIAGNOSES Myelodysplastic syndrome with increased ringed sideroblasts. ONCOLOGY HISTORY Patient is an old, very nice lady who was admitted to the hospital and was found to have pancytopenia. Her CBC showed white count 1.9, hemoglobin 8.6, hematocrit 26.4, platelets 172,000 and MCV 97.4. She had some hematological workup including serum iron which was normal at 90. TIBC was 216, iron saturation 41.7%. Vitamin B12 was more than 1500 and folate level was more than 22.3. Patient was referred for evaluation and management of pancytopenia. Patient had bone marrow aspiration biopsy done on August 04, 2017 and the diagnosis came back positive for myelodysplastic syndrome with no increased blasts. The blast count was only 1%. 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 Megakaryocytes showed patchy increase in some dysplastic features including hyperchromatic forms, abnormal small forms and abnormal large forms. FISH for MDS is still pending. 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 FISH for analysis was abnormal with 12d-. 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 There are some other tests still pending. HISTORY OF PRESENT ILLNESS Patient is here today for followup of her pancytopenia and to discuss the results of her bone marrow biopsy. She is complaining of exertional shortness of breath and she is bruising easily. She is currently under physical therapy and the patient cannot tolerate the three weekly program so far. PAST MEDICAL HISTORY 1. History of stroke, 2001. 2. DVT, 2014. 3. Atrial fibrillation, 2010. 4. Hypertension, 2007. 5. Right renal infarct, 2008. 6. Overactive bladder, 2005. 7. Hyperparathyroidism with hypercalcemia. PAST SURGICAL HISTORY 1. Cataract extraction bilaterally. 2. Pacemaker placement, 2008. 3. Appendectomy, 2008. 4. Cholecystectomy, 1993. 5. Hysterectomy with oophorectomy. 6. Left breast biopsy in the past. FAMILY HISTORY Negative for cancer or blood diseases. SOCIAL HISTORY Patient is a . She had four sons and one daughter. 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 Denies any abuse of tobacco, alcohol or drugs. CURRENT MEDICATIONS 1. Atorvastatin 40 mg daily. 2. Spironolactone/hydrochlorothiazide 25/25 one tablet daily. 3. Xarelto 20 mg daily. 4. Vitamin D 1000 units daily. 5. Calcium carbonate and vitamin D3 chewable tablet one tablet daily. ALLERGIES No known drug allergies. REVIEW OF SYSTEMS CONSTITUTIONAL: No appetite or weight change. No fever, chills or sweating. No recent infection. HEENT: Ears: No tinnitus or hearing problem. Nose: Patient has nasal discharge. Throat: No sore throat or mouth ulcers. Eyes: No diplopia or visual changes. RESPIRATORY: Patient has shortness of breath which is exertional. CARDIOVASCULAR: No chest pain, orthopnea, or paroxysmal nocturnal dyspnea (PND) . No edema. No palpitations. GASTROINTESTINAL: No nausea or vomiting. No diarrhea or constipation. No change in bowel movements. No heartburn or swallowing difficulties. No abdominal pain. No jaundice. No hematemesis, melena or rectal bleeding. GENITOURINARY: No hematuria or dysuria. NEUROLOGICAL: Patient has occasional headache. HEMATOLOGIC/LYMPHATIC: She bruises easily. SKIN: No skin rash or lumps. PSYCHIATRIC: No anxiety or depression. PHYSICAL EXAMINATION GENERAL: Looks stable. Well-developed, well-nourished, and in no acute distress. VITAL SIGNS: Blood pressure 98/52, pulse 61 per minute, respirations 16 per minute, temperature 97, pulse ox 99% on room air. HEENT: Head: Atraumatic. No sinus tenderness to palpation. Eyes: No icterus or conjunctivitis. Mouth and throat: No oral thrush or mucositis. NECK: Supple. No cervical or supraclavicular lymphadenopathy. LUNGS: Clear to auscultation and percussion bilaterally. HEART: Regular rate and rhythm. No gallops, murmurs, clicks or rubs. ABDOMEN: Soft and lax. No tenderness. No hepatosplenomegaly. No masses. EXTREMITIES: Patient has bilateral edema. LYMPHATICS: No peripheral lymphadenopathy. NEUROLOGICAL: Conscious, alert and oriented times three. No focal motor or sensory deficits. PSYCHIATRIC: Mood and affect appear normal. SKIN: No skin rash, bruise or purpuric eruption. DIAGNOSTIC DATA Bone marrow aspiration biopsy done on August 04, 2017 did reveal the presence of myelodysplastic syndrome with 1% blasts and numerous ringed sideroblasts. ASSESSMENT Myelodysplastic syndrome is the underlying cause of the pancytopenia. Bone marrow aspiration biopsy done on August 04, 2017 did reveal the presence of myelodysplastic syndrome with 1% blasts and numerous ringed sideroblasts. There were also multiple chromosomal abnormalities. This by cytogenic analysis. FISH for myelodysplastic syndrome came back positive for 12p-. Other tests are still pending. I talked to the patient today. We are waiting for the results of the other tests. I am planning to check her CBC today and on a weekly basis, and if the hemoglobin is less than 8 g/dL I am planning to transfuse two units of packed red blood cells, and if the platelets are lower than 15,000 I am planning to transfuse one unit of plateletpheresis. I will see her next month after she will regain some strength from her physical therapy to start treatment most probably with VIDAZA. I explained that to the patient and her son and they are agreeable with such a plan. PLAN 1. CBC today and q.week. 2. Patient to return next month with CBC, chem panel, LDH and uric acid. 3. Consider treatment with VIDAZA. 4. Consider blood transfusion if the hemoglobin is less than 8 g/dL. 5. Consider platelet transfusion if the platelet count is less than 15,000 without bleeding, or if platelet count is less than 50,000 with bleeding. 6. Patient is to contact us for any new concerns or complaints. OLAMIDE
[2017-08-21 10:45] VITALS: BP 128/57
[2017-08-21 11:05] LABS: PLATELET COUNT, AUTOMATED 177 K/uL (150-450)
[2017-08-28 10:31] VITALS: BP 95/55
[2017-08-28 10:48] LABS: PLATELET COUNT, AUTOMATED 284 K/uL (150-450)
[2017-09-04 11:09] VITALS: BP 118/49
[2017-09-04 14:18] VITALS: BP 109/43
[2017-09-04 14:32] VITALS: BP 102/45
[2017-09-04 16:42] VITALS: BP 147/69
[2017-09-04 16:57] VITALS: BP 134/50
[2017-09-04 19:09] VITALS: BP 146/61
[2017-09-10 11:41] VITALS: BP 112/58
[2017-09-10 11:52] LABS: PLATELET COUNT, AUTOMATED 239 K/uL (150-450)
--- NOTE | 2017-09-10 19:40 | ONCOLOGY FOLLOW UP NOTE ---
EVENT DATE: September 10, 2017 DIAGNOSES 1. Myelodysplastic syndrome with increased ringed sideroblasts. 2. 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 CHIEF COMPLAINT Patient is here today for followup of her myelodysplastic syndrome. ONCOLOGY HISTORY Patient is an old, very nice lady who was admitted to the hospital and was found to have pancytopenia. Her CBC showed white count 1.9, hemoglobin 8.6, hematocrit 26.4, platelets 172,000 and MCV 97.4. She had some hematological workup including serum iron which was normal at 90. TIBC was 216, iron saturation 41.7%. Vitamin B12 was more than 1500 and folate level was more than 22.3. Patient was referred for evaluation and management of pancytopenia. Patient had bone marrow aspiration biopsy done on August 04, 2017 and the diagnosis came back positive for myelodysplastic syndrome with no increased blasts. The blast count was only 1%. 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 Megakaryocytes showed patchy increase in some dysplastic features including hyperchromatic forms, abnormal small forms and abnormal large forms. FISH for MDS is still pending. 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 FISH for analysis was abnormal with 12d-. 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 Molecular profiling testing showed pathogenic alterations detected in the IDH2, JAK2, KRAS and SRSF2 genes. Patient started treatment with VIDAZA subcutaneously on August 14, 2017. HISTORY OF PRESENT ILLNESS Patient is here today for followup of her myelodysplastic syndrome. She is doing fine currently. She is starting to regain her strength with Physical Therapy. She has easy bruising, but other than that she really denies any complaint. PAST MEDICAL HISTORY 1. History of stroke, 2001. 2. DVT, 2014. 3. Atrial fibrillation, 2010. 4. Hypertension, 2007. 5. Right renal infarct, 2008. 6. Overactive bladder, 2005. 7. Hyperparathyroidism with hypercalcemia. PAST SURGICAL HISTORY 1. Cataract extraction bilaterally. 2. Pacemaker placement, 2008. 3. Appendectomy, 2008. 4. Cholecystectomy, 1993. 5. Hysterectomy with oophorectomy. 6. Left breast biopsy in the past. FAMILY HISTORY Negative for cancer or blood diseases. SOCIAL HISTORY Patient is a . She had four sons and one daughter. 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 Denies any abuse of tobacco, alcohol or drugs. CURRENT MEDICATIONS 1. Atorvastatin 40 mg daily. 2. Spironolactone/hydrochlorothiazide 25/25 one tablet daily. 3. Xarelto 20 mg daily. 4. Vitamin D 1000 units daily. 5. Calcium carbonate and vitamin D3 chewable tablet one tablet daily. ALLERGIES No known drug allergies. REVIEW OF SYSTEMS CONSTITUTIONAL: No appetite or weight change. No fever, chills or sweating. No recent infection. HEENT: Ears: No tinnitus or hearing problem. Nose: Patient has nasal discharge. Throat: No sore throat or mouth ulcers. Eyes: No diplopia or visual changes. RESPIRATORY: Patient has shortness of breath which is exertional. CARDIOVASCULAR: No chest pain, orthopnea, or paroxysmal nocturnal dyspnea (PND) . No edema. No palpitations. GASTROINTESTINAL: No nausea or vomiting. No diarrhea or constipation. No change in bowel movements. No heartburn or swallowing difficulties. No abdominal pain. No jaundice. No hematemesis, melena or rectal bleeding. GENITOURINARY: No hematuria or dysuria. NEUROLOGICAL: Patient has occasional headache. HEMATOLOGIC/LYMPHATIC: She bruises easily. She got fatigued, but after her transfusion she is feeling better. SKIN: No skin rash or lumps. PSYCHIATRIC: No anxiety or depression. PHYSICAL EXAMINATION GENERAL: Looks stable. Well-developed, well-nourished, and in no acute distress. VITAL SIGNS: Blood pressure 112/58, pulse 60 per minute, respirations 14 per minute, temperature 97.3, pulse ox 93% on room air. HEENT: Head: Atraumatic. No sinus tenderness to palpation. Eyes: No icterus or conjunctivitis. Mouth and throat: No oral thrush or mucositis. NECK: Supple. No cervical or supraclavicular lymphadenopathy. LUNGS: Clear to auscultation and percussion bilaterally. HEART: Regular rate and rhythm. No gallops, murmurs, clicks or rubs. ABDOMEN: Soft and lax. No tenderness. No hepatosplenomegaly. No masses. EXTREMITIES: Patient has bilateral edema. LYMPHATICS: No peripheral lymphadenopathy. NEUROLOGICAL: Conscious, alert and oriented times three. No focal motor or sensory deficits. PSYCHIATRIC: Mood and affect appear normal. SKIN: Bruising of the upper extremities is noted. DIAGNOSTIC DATA CBC showed a white count of 2.5, hemoglobin 10.8, hematocrit 32.1, platelets 239 ,000. MCV 93.1. ANC 1.2. Sodium 136, total protein 5.9, albumin 3. Other parameters are normal. ASSESSMENT 1. Myelodysplastic syndrome, proved by bone marrow aspiration biopsy done on August 04, 2017 which revealed myelodysplastic syndrome with 1% blasts and numerous ringed sideroblasts. There were also multiple chromosomal abnormalities by cytogenic analysis. FISH for myelodysplastic syndrome came back positive for 12p-. Molecular profiling showed pathogen alteration detected in the IDH2, JAK2, KRAS and SRSF2 genes, which are pathogenic. I had a long discussion with the patient and her son today regarding further management. Patient is transfusion dependent. She receives a blood transfusion nearly every three weeks. I am planning to start treatment with VIDAZA subcutaneously five days every four weeks. And we will see if the patient will respond and become transfusion independent by that. Patient is willing to start the treatment. I am planning to see her prior to the next cycle of VIDAZA with CBC, chem panel. I will repeat her testing with CBC, chem panel every week. 2. Pancytopenia is due to her myelodysplastic syndrome. We are hoping to have improvement of her count with her treatment with VIDAZA. PLAN 1. VIDAZA cycle number one. 2. CBC, chem panel to be checked weekly. 3. Patient to return in four weeks after starting VIDAZA with CBC, chem panel. 4. Consider blood transfusion if the hemoglobin is less than 8 g/dL. 5. Consider platelet transfusion if the platelet count is less than 15,000 without bleeding, or if platelet count is less than 50,000 with bleeding. 6. Patient is to contact us for any new concerns or complaints. [facility]
[2017-09-17 09:57] VITALS: BP 148/53
[2017-09-17 10:12] LABS: PLATELET COUNT, AUTOMATED 270 K/uL (150-450)
--- NOTE | 2017-09-21 15:16 | Pharmacy Note ---
Pharmacy Note Date Provider Notified: Sep 21, 2017 (Chemotherapy Education Note) Note: Ms. Mchugh is an 82 yo F with MDS who presents to clinic today to discuss current recommendations to begin 5-azacitidine (Vidaza) chemotherapy. Pharmacy was asked to discuss chemotherapy prescribed and the toxicities of the treatment with the patient prior to administering the first dose. Discussion occurred with the patient and her son, John, and ABDELRAHMAN Montano. General Precautions were discussed including the following: Nutrition Discussed the importance of maintaining nutritional status with high fiber, high protein diet, and maintaining hydration throughout treatment. Discussed dietary tips for preventing and managing nausea and vomiting as well. Use of high protein supplements like ensure were discussed to supplement dietary intake of protein. Drug therapy/Adverse Events Therapy with Azacitidine was discussed, including: drug name, cycle length, treatment expectations, administration, and expectations of therapy. Adverse events were discussed including: nausea, vomiting, pancytopenia, hepatotoxicity , nephrotoxicity, fatigue. Discussed the mechanism of the drug and duration of treatment to see initial response. Discussed potential need for transfusions while receiving treatment as well. Risks of neutropenia, anemia, and thrombocytopenia discussed. Home Medications Home medications were reviewed. Pt is on Lasix/KCL and xarelto. Discussed monitoring for bleeding, as both the intrinsic and extrinsic pathways are affected. Pt and son verbalized understanding of the importance of monitoring. Discussed anti-emetics and toxicities, and strategies for managing nausea and vomiting. Care at Home Discussed proper handling and disposal of body fluids while on treatment and minimizing risk of exposure. Handling of contaminated household linens, and hand washing. Both verbalized understanding and asked appropriate questions. Monitoring of Therapy Discussed the importance of monitoring both therapy and disease with labs on a weekly basis and periodic bone marrow biopsy/aspirate throughout the course of disease. Discussed response to treatment time will likely be a few months/ cycles. Will watch closely for toxicities and organ function with weekly monitoring. When to Contact Us Discussed with patient and John when to call us, when to seek emergency medical care ([id number]). Pt verbalized understanding. Reassured patient and her son that they could call with questions any time and discussed the importance of open communication with the health care team. Both were in understanding Materials Provided Pt was provided with a chemotherapy education binder with drug specific handouts. Time spent with patient: 60 minutes of direct counseling Macy Chen, PharmD, BCOP MACY CHEN Sep 21, 2017 12:16
[2017-09-22 10:57] VITALS: BP 121/49
[2017-09-23 10:56] VITALS: BP 127/49
[2017-09-24 10:29] VITALS: BP 118/47
--- NOTE | 2017-09-24 11:27 | ONC Progress Note - NP.Halsey ---
Patient History Date of Service Sep 24, 2017 Reason For Visit/HPI Patient is seen in the clinic today for cycle 1 day 4 of vidaza for her myelodysplastic syndrome. Patient is accompanied by her son John. Overall patient reports that she is feeling relatively well other than continued fatigue with associated weakness. She occasionally has shortness of breath with exertion but denies shortness of breath at rest. She denies any irritation at the injection sites. Problem List (1) Myelodysplastic syndrome Oncology History Acacia was admitted to the hospital and was found to have pancytopenia. Her CBC showed white count 1.9, hemoglobin 8.6, hematocrit 26.4, platelets 172,000 and MCV 97.4. She had some hematological workup including serum iron which was normal at 90. TIBC was 216, iron saturation 41.7%. Vitamin B12 was more than 1500 and folate level was more than 22.3. Patient was referred for evaluation and management of pancytopenia. Patient had bone marrow aspiration biopsy done on August 04, 2017 and the diagnosis came back positive for myelodysplastic syndrome with no increased blasts. The blast count was only 1%. 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 Megakaryocytes showed patchy increase in some dysplastic features including hyperchromatic forms, abnormal small forms and abnormal large forms. FISH for MDS is still pending. 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 FISH for analysis was abnormal with 12d-. 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 Molecular profiling testing showed pathogenic alterations detected in the IDH2, JAK2, KRAS and SRSF2 genes. Patient started treatment with VIDAZA subcutaneously given on days 1 through 5 every 28 days. Medical History Family History: FH: CVA (cerebrovascular accident) MOTHER, , Age:67 FH: MD (myocardial infarction) BROTHER, , Age:60 Psychosocial History Social History Patient is a . She had four sons and one daughter. 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 Denies any abuse of tobacco, alcohol or drugs. Smoking History: Yes Smoking Status: Former Smoker When Quit Tobacco?: 1960 Medications and Allergies Active Scripts Furosemide (FUROSEMIDE) 40 Mg Tablet, 40 MG PO QDAY, #90 TAB Prov:SCAR MOSS MD 08/05/17 Potassium Chloride (POTASSIUM CHLORIDE) 20 Meq Tab.er.prt, 20 MEQ PO QDAY, #90 TAB Prov:SCAR MOSS MD 08/05/17 Acetaminophen (MAPAP) 325 Mg Tablet, 650 MG PO Q6H Y for FEVER/PAIN, #30 TAB Prov:SCAR MOSS MD 08/05/17 Atorvastatin Calcium (ATORVASTATIN CALCIUM) 40 Mg Tablet, 1 TAB PO QDAY, #9999 TAB Prov:MARIANGEL DOLL MD 11/11/16 Rivaroxaban 20 Mg (XARELTO 20 MG) 20 Mg Tablet, 1 TAB PO DAILY, #90 TAB 3 Refills Prov:MARIANGEL DOLL MD 08/19/16 Reported Medications Azacitidine (AZACITIDINE) 100 Mg Vial, 130 MG SC Days 1-5 of a 28 day cycle 09/21/17 Prochlorperazine Maleate (Compazine) 10 Mg Tablet, 10 MG PO Q6H Y for NAUSEA 09/21/17 Ondansetron (ZOFRAN ODT) 4 Mg Tab.rapdis, 8 MG PO Q8H Y for NAUSEA, TAB.SHIKHA 09/21/17 Cholecalciferol (Vitamin D3) (VITAMIN D3) 1,000 Unit Tablet, 1000 UNIT PO QDAY 05/19/14 Ca Carbonate/Vitamin D3/Vit K (Citracal Soft Chew) 1 Each Tab.chew, 1 TAB PO QDAY 05/19/14 Allergies: Coded Allergies: No Known Allergies (Verified Allergy, Mild, 07/31/17) Review of System/Physical Exam Review of Systems All Systems Reviewed/Normal: Yes, Except as Noted Respiratory: Positive for Shortness of Breath Hematologic: Positive for Fatigue, Positive for Weakness Psychiatric: Other (her son is with her today and reports that she has dementia ) Physical Exam Vital Signs Temperature: 97.0 Pulse: 61 BP Systolic: 118 BP Diastolic: 47 Respiratory Rate: 16 O2 SAT: 93 O2 Delivery: Height (inches) 63.00 Weight lb: 145 Weight oz: 11.0 Weight Kg (Mo): Pain: 0 ECOG Score: 2 General: Stable, Well Developed, Well Nourished, Not In Acute Distress HEENT: No Trauma, No Conjunctivitis Neck: Supple Lungs: Clear to Auscultation Heart: Regular Rate, Regular Rhythm, No Gallops Abdomen: Soft and Nontender, No Hepatosplenomegaly, No Masses, Other (bowel sounds are active) Extremities: No Cyanosis, No Clubbing, No Edema Psychiatric: Mood appears normal Skin: No Skin Rashes, No Bruising, No Purpura, Other (patient has abbi skin bilateral arms which remains stable and thought to be from poor venous circulation) Diagnostic Studies Diagnostic Studies Laboratory Laboratory Tests 09/24/17 10:37 Laboratory Tests 08/05/17 15:15: Protein Electrophoresis (T) 6.20, Albumin % (PEP) 3.46, Vnsld-2-Mssqnicjh 0.35, Ldaft-8-Bjirpbwac 0.59, Beta Globulins 0.66, Gamma Globulins (%) 1.14, Immunoglobulin G 1150, Immunoglobulin A 257, Immunoglobulin M 40, BHARAT & Serum PEP Interpretation See note, Serum Immunofixation Bharat done 09/17/17 10:03: Red Blood Count 3.07, Mean Corpuscular Volume 93.3, Mean Corpuscular Hemoglobin 30.9, Mean Corpuscular Hemoglobin Concent 33.1, Red Cell Distribution Width 15.8 , Mean Platelet Volume 7.9, Monocytes (%) (Auto) 6.1, Eosinophils (%) (Auto) 1.3 , Basophils (%) (Auto) 0.9, Nucleated RBC Relative Count (auto) 0.1, Monocytes # (Auto) 0.1, Eosinophils # (Auto) 0.0, Basophils # (Auto) 0.0, Nucleated RBC Absolute Count (auto) 0.00, Peripheral Blood Smear Yes 09/24/17 10:37: White Blood Count 5.0, Hemoglobin 8.9, Hematocrit 25.8, Platelet Count 292, Neutrophils (%) (Auto) 48.6, Lymphocytes (%) (Auto) 43.3, Neutrophils # (Auto) 2.5, Lymphocytes # (Auto) 2.2, Sodium Level 133, Potassium Level 4.0, Chloride Level 100, Carbon Dioxide Level 26, Blood Urea Nitrogen 17, Creatinine 0.90, Glomerular Filtration Rate Calc 59.7, Random Glucose 79, Uric Acid 5.2, Calcium Level 9.3, Phosphorus Level 3.0, Total Bilirubin 0.9, Aspartate Amino Transf ( AST/SGOT) 17, Alanine Aminotransferase (ALT/SGPT) 34, Alkaline Phosphatase 90, Lactate Dehydrogenase 234, Total Protein 6.1, Albumin 3.1 Assessment and Plan Assessment & Plan 1. Myelodysplastic syndrome, proved by bone marrow aspiration biopsy done on August 04, 2017 which revealed myelodysplastic syndrome with 1% blasts and numerous ringed sideroblasts. There were also multiple chromosomal abnormalities by cytogenic analysis. FISH for myelodysplastic syndrome came back positive for 12p-. Molecular profiling showed pathogen alteration detected in the IDH2, JAK2, KRAS and SRSF2 genes, which are pathogenic. Patient consult it with Dr. Mc to discuss management. Patient is transfusion dependent. She receives a blood transfusion nearly every three weeks. She was started on treatment with VIDAZA subcutaneously five days every four weeks. White count is 5.0. Platelet counts remain stable. She has not required a transfusion in over 3 weeks. I will repeat her testing with CBC, chem panel every week. 2. Pancytopenia is due to her myelodysplastic syndrome. This is improving with VIDAZA. PLAN 1. VIDAZA cycle number one day 4. 2. CBC, chem panel to be checked weekly. 3. Patient to return in four weeks after starting VIDAZA with CBC, chem panel. 4. Consider blood transfusion if the hemoglobin is less than 8 g/dL. 5. Consider platelet transfusion if the platelet count is less than 15,000 without bleeding, or if platelet count is less than 50,000 with bleeding. 6. Patient is to contact us for any new concerns or complaints. I personally spent a total of 20 minutes. Of that 15 minutes was counseling/ coordination of patient's care. See my note above for details. Copies to: CLARISSA DOMINIQUE MD, NANCY J BRANCH CREDIT COUNSELOR-BC, ONC Sep 24, 2017 11:27
[2017-09-25 11:08] VITALS: BP 127/47
[2017-09-28 11:19] LABS: PLATELET COUNT, AUTOMATED 349 K/uL (150-450)
[2017-09-28 12:26] VITALS: BP 135/57
[2017-10-05 10:27] LABS: PLATELET COUNT, AUTOMATED 231 K/uL (150-450)
[2017-10-05 15:29] VITALS: BP 111/70
[2017-10-06 11:34] VITALS: BP 107/45
[2017-10-06 11:51] VITALS: BP 111/45
[2017-10-06 13:54] VITALS: BP 98/42
[2017-10-06 14:03] VITALS: BP 93/39
[2017-10-06 14:19] VITALS: BP 100/40
[2017-10-06 16:16] VITALS: BP 121/44
[2017-10-12 10:58] VITALS: BP 119/44
[2017-10-12 11:22] LABS: PLATELET COUNT, AUTOMATED 320 K/uL (150-450)
[2017-10-16 09:59] VITALS: BP 120/49
--- NOTE | 2017-10-16 18:23 | ONCOLOGY FOLLOW UP NOTE ---
EVENT DATE: October 16, 2017 DIAGNOSES 1. Myelodysplastic syndrome with increased ringed sideroblasts. 2. 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 CHIEF COMPLAINT Patient is here today for her chemotherapy with VIDAZA cycle number two for her myelodysplastic syndrome. ONCOLOGY HISTORY Patient is an 82-year-old, very nice lady who was admitted to the hospital and was found to have pancytopenia. Her CBC showed white count 1.9, hemoglobin 8.6 , hematocrit 26.4, platelets 172,000 and MCV 97.4. She had some hematological workup including serum iron which was normal at 90. TIBC was 216, iron saturation 41.7%. Vitamin B12 was more than 1500 and folate level was more than 22.3. Patient was referred for evaluation and management of pancytopenia. Patient had bone marrow aspiration biopsy done on August 04, 2017 and the diagnosis came back positive for myelodysplastic syndrome with no increased blasts. The blast count was only 1%. 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 Megakaryocytes showed patchy increase in some dysplastic features including hyperchromatic forms, abnormal small forms and abnormal large forms. FISH for MDS is still pending. 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 FISH for analysis was abnormal with 12d-. 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 Molecular profiling testing showed pathogenic alterations detected in the IDH2, JAK2, KRAS and SRSF2 genes. Patient started treatment with VIDAZA subcutaneously on August 14, 2017. HISTORY OF PRESENT ILLNESS Patient is here today for her cycle number two of VIDAZA for her myelodysplastic syndrome. She tolerated the first cycle well without complications. She is complaining of runny nose, cough and shortness of breath. She bruises easily. She is weak, tired and fatigued. Patient still requires blood transfusions for her anemia. PAST MEDICAL HISTORY 1. History of stroke, 2001. 2. DVT, 2014. 3. Atrial fibrillation, 2010. 4. Hypertension, 2007. 5. Right renal infarct, 2008. 6. Overactive bladder, 2005. 7. Hyperparathyroidism with hypercalcemia. PAST SURGICAL HISTORY 1. Cataract extraction bilaterally. 2. Pacemaker placement, 2008. 3. Appendectomy, 2008. 4. Cholecystectomy, 1993. 5. Hysterectomy with oophorectomy. 6. Left breast biopsy in the past. FAMILY HISTORY Negative for cancer or blood diseases. SOCIAL HISTORY Patient is a . She had four sons and one daughter. 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 Denies any abuse of tobacco, alcohol or drugs. CURRENT MEDICATIONS 1. Atorvastatin 40 mg daily. 2. Spironolactone/hydrochlorothiazide 25/25 one tablet daily. 3. Xarelto 20 mg daily. 4. Vitamin D 1000 units daily. 5. Calcium carbonate and vitamin D3 chewable tablet one tablet daily. ALLERGIES No known drug allergies. REVIEW OF SYSTEMS CONSTITUTIONAL: No appetite or weight change. No fever, chills or sweating. No recent infection. HEENT: Ears: No tinnitus or hearing problem. Nose: Patient has nasal discharge. Throat: No sore throat or mouth ulcers. Eyes: No diplopia or visual changes. RESPIRATORY: She has cough with shortness of breath. CARDIOVASCULAR: No chest pain, orthopnea, or paroxysmal nocturnal dyspnea (PND) . No edema. No palpitations. GASTROINTESTINAL: No nausea or vomiting. No diarrhea or constipation. No change in bowel movements. No heartburn or swallowing difficulties. No abdominal pain. No jaundice. No hematemesis, melena or rectal bleeding. GENITOURINARY: No hematuria or dysuria. NEUROLOGICAL: Patient has occasional headache. HEMATOLOGIC/LYMPHATIC: She bruises easily. She is weak, tired and fatigued. SKIN: No skin rash or lumps. PSYCHIATRIC: No anxiety or depression. PHYSICAL EXAMINATION GENERAL: Looks stable. Well-developed, well-nourished, and in no acute distress. VITAL SIGNS: Blood pressure 120/49, pulse 60 per minute, respirations 16 per minute, temperature 96.6, pulse ox 97% on room air. HEENT: Head: Atraumatic. No sinus tenderness to palpation. Eyes: No icterus or conjunctivitis. Mouth and throat: No oral thrush or mucositis. NECK: Supple. No cervical or supraclavicular lymphadenopathy. LUNGS: Clear to auscultation and percussion bilaterally. HEART: Regular rate and rhythm. No gallops, murmurs, clicks or rubs. ABDOMEN: Soft and lax. No tenderness. No hepatosplenomegaly. No masses. EXTREMITIES: Patient has bilateral edema. LYMPHATICS: No peripheral lymphadenopathy. NEUROLOGICAL: Conscious, alert and oriented times three. No focal motor or sensory deficits. PSYCHIATRIC: Mood and affect appear normal. SKIN: Bruising of the upper extremities is noted. DIAGNOSTIC DATA CBC showed a white count of 2.1, hemoglobin 9, hematocrit 26.6, platelets 320, 000. ANC 1.5. Chem panel totally normal except sodium 135, total protein 5.7, albumin 2.7. ASSESSMENT 1. Myelodysplastic syndrome, proved by bone marrow aspiration biopsy done on August 04, 2017 which revealed myelodysplastic syndrome with 1% blasts and numerous ringed sideroblasts. There were multiple chromosomal abnormalities by cytogenic analysis. FISH for MDS came back positive for lesion of the short arm of chromosome 12. Molecular profiling showed pathogenic alteration detected in the IDH2, JAK2, KRAS and SRSF2 genes. Patient started treatment with VIDAZA on August 14, 2017. She tolerated the first cycle well without complications. I am planning to proceed with her second cycle this time. I will see her again in four weeks with CBC, chem panel at that time, with CBC and chem panel to be checked weekly. 2. Pancytopenia is due to her myelodysplastic syndrome. Patient is still transfusion dependent. Will continue to monitor her CBC every week. PLAN 1. VIDAZA cycle number two. 2. CBC, chem panel to be checked weekly. 3. Patient to return in four weeks with CBC, chem panel. 4. Consider blood transfusion if the hemoglobin drops below 8 g/dL. 5. Patient is to contact us for any new concern or complaints. ARIAD
[2017-10-19 11:42] VITALS: BP 120/53
[2017-10-26 11:12] VITALS: BP 126/54
[~2017-10-27] VITALS: Ht 160 cm; Wt 66.5 kg
[~2017-10-27] MED LIST changes: +ACETAMINOPHEN 325 MG TAB PO ONE; +ACETAMINOPHEN 325 MG TAB PO PRN; +ALTEPLASE RECOMB 2 MG VIAL IVP PRN; +AZAC100V SC; +AZACITIDINE SC ONE; +DEXTROSE 5%(*) 100 ML BAG 100 ML IVPB PRN; +HEPARIN FLSH (PORT) 500 UN/5ML IVP PRN; +LIDOCAINE/SOD BICARB 8.4% SYR ID PRN; +NS(*) 0.9% 100 ML BAG 100 ML IVPB PRN; +NS(*) 0.9% 500 ML BAG 500 ML IV ONE; +NS(*) 0.9% 500 ML BAG 500 ML IV PRN; +ONDA4TAB PO; +ONDANSETRON 4 MG ODT TABDP SL PRN; +PROC10TA4 PO; +WATER FOR INJ,STERILE 20 ML IVP PRN; +diphenhydrAMINE 25 MG CAP PO ONE; +diphenhydrAMINE 25 MG CAP PO PRN
[2017-10-27 11:46] VITALS: BP 123/50
== END ==
LOC: ONC 07-29 09:12 → SPU 08-05 15:00 → ONC 09-21 09:58 → SPU 09-24 10:15 → ONC 09-25 10:55 → SPU 09-28 10:54 → ONC 10-16 09:52
PROVIDERS: ATTEND Internal Medicine Hematology
DX: D46.9 Myelodysplastic syndrome, unspecified (principal); D61.818 Other pancytopenia; Z79.899 Other long term (current) drug therapy; Z79.01 Long term (current) use of anticoagulants; R53.1 Weakness; R53.83 Other fatigue
CPT/HCPCS: 36415; 83615; 84100; 84550; 85025; 85027; 86334; 86850; 86870; 86900; 86901; 86920; 96372; A9270; G0463; J7040; J9025; P9016; Q0162; Q0163; 36430; 82040; 82247; 82310; 82374; 82435; 82565; 82947; 84075; 84132; 84155; 84295; 84450; 84460; 84520; 99212; S0119

== ENCOUNTER → 2018-01-26 | Outpatient (RCR) | payer MEDICARE, OTHER ==
[2017-07-20 16:11] VITALS: Ht 160 cm; Wt 67.4 kg
[2017-10-29 11:01] VITALS: BP 122/59
[2017-10-30 11:05] VITALS: BP 126/52
[2017-11-02 11:23] LABS: PLATELET COUNT, AUTOMATED 258 K/uL (150-450)
[2017-11-02 16:16] VITALS: BP 116/52
[2017-11-09 11:08] VITALS: BP 136/56
[2017-11-09 11:19] LABS: PLATELET COUNT, AUTOMATED 203 K/uL (150-450)
[2017-11-16 11:06] VITALS: BP 114/49
[2017-11-16 11:27] LABS: PLATELET COUNT, AUTOMATED 362 K/uL (150-450)
[2017-11-20 11:03] VITALS: BP 118/56
--- NOTE | 2017-11-20 15:37 | ONCOLOGY FOLLOW UP NOTE ---
EVENT DATE: November 20, 2017 DIAGNOSES 1. Myelodysplastic syndrome with increased ringed sideroblasts. 2. 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 CHIEF COMPLAINT Patient is here today for her cycle number three of VIDAZA for her myelodysplastic syndrome. ONCOLOGY HISTORY Patient is an 82-year-old, very nice lady who was admitted to the hospital and was found to have pancytopenia. Her CBC showed white count 1.9, hemoglobin 8.6 , hematocrit 26.4, platelets 172,000 and MCV 97.4. She had some hematological workup including serum iron which was normal at 90. TIBC was 216, iron saturation 41.7%. Vitamin B12 was more than 1500 and folate level was more than 22.3. Patient was referred for evaluation and management of pancytopenia. Patient had bone marrow aspiration biopsy done on August 04, 2017 and the diagnosis came back positive for myelodysplastic syndrome with no increased blasts. The blast count was only 1%. 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 Megakaryocytes showed patchy increase in some dysplastic features including hyperchromatic forms, abnormal small forms and abnormal large forms. FISH for MDS is still pending. 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 FISH for analysis was abnormal with 12d-. 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 Molecular profiling testing showed pathogenic alterations detected in the IDH2, JAK2, KRAS and SRSF2 genes. Patient started treatment with VIDAZA subcutaneously on August 14, 2017. HISTORY OF PRESENT ILLNESS Patient is here today for her cycle number three of VIDAZA for her myelodysplastic syndrome. She is doing really very good with her treatment. She did not receive any blood transfusion since her last cycle, which was cycle two. She is complaining of some easy bruising and some [id number] fatigue sometimes, but generally speaking she is feeling better. PAST MEDICAL HISTORY 1. History of stroke, 2001. 2. DVT, 2014. 3. Atrial fibrillation, 2010. 4. Hypertension, 2007. 5. Right renal infarct, 2008. 6. Overactive bladder, 2005. 7. Hyperparathyroidism with hypercalcemia. PAST SURGICAL HISTORY 1. Cataract extraction bilaterally. 2. Pacemaker placement, 2008. 3. Appendectomy, 2008. 4. Cholecystectomy, 1993. 5. Hysterectomy with oophorectomy. 6. Left breast biopsy in the past. FAMILY HISTORY Negative for cancer or blood diseases. SOCIAL HISTORY Patient is a . She had four sons and one daughter. 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 Denies any abuse of tobacco, alcohol or drugs. CURRENT MEDICATIONS 1. Atorvastatin 40 mg daily. 2. Spironolactone/hydrochlorothiazide 25/25 one tablet daily. 3. Xarelto 20 mg daily. 4. Vitamin D 1000 units daily. 5. Calcium carbonate and vitamin D3 chewable tablet one tablet daily. ALLERGIES No known drug allergies. REVIEW OF SYSTEMS CONSTITUTIONAL: No appetite or weight change. No fever, chills or sweating. No recent infection. HEENT: Ears: No tinnitus or hearing problem. Nose: Patient has nasal discharge. Throat: No sore throat or mouth ulcers. Eyes: No diplopia or visual changes. RESPIRATORY: She has cough with shortness of breath. CARDIOVASCULAR: No chest pain, orthopnea, or paroxysmal nocturnal dyspnea (PND) . No edema. No palpitations. GASTROINTESTINAL: No nausea or vomiting. No diarrhea or constipation. No change in bowel movements. No heartburn or swallowing difficulties. No abdominal pain. No jaundice. No hematemesis, melena or rectal bleeding. GENITOURINARY: No hematuria or dysuria. NEUROLOGICAL: Patient has occasional headache. HEMATOLOGIC/LYMPHATIC: She bruises easily. She is weak, tired and fatigued. SKIN: No skin rash or lumps. PSYCHIATRIC: No anxiety or depression. PHYSICAL EXAMINATION GENERAL: Looks stable. Well-developed, well-nourished, and in no acute distress. VITAL SIGNS: Blood pressure 118/56, pulse 61 per minute, respirations 16 per minute, temperature 97.4, pulse ox 100% on room air. HEENT: Head: Atraumatic. No sinus tenderness to palpation. Eyes: No icterus or conjunctivitis. Mouth and throat: No oral thrush or mucositis. NECK: Supple. No cervical or supraclavicular lymphadenopathy. LUNGS: Clear to auscultation and percussion bilaterally. HEART: Regular rate and rhythm. No gallops, murmurs, clicks or rubs. ABDOMEN: Soft and lax. No tenderness. No hepatosplenomegaly. No masses. EXTREMITIES: Patient has bilateral edema. LYMPHATICS: No peripheral lymphadenopathy. NEUROLOGICAL: Conscious, alert and oriented times three. No focal motor or sensory deficits. PSYCHIATRIC: Mood and affect appear normal. SKIN: Bruising of the upper extremities is noted. DIAGNOSTIC DATA CBC showed a white count of 2.3, hemoglobin 10.1, hematocrit 30.4, platelets 362 ,000 and MCV 98. Chem panel is totally normal. ASSESSMENT 1. Myelodysplastic syndrome, proved by bone marrow aspiration biopsy done on August 04, 2017 which revealed myelodysplastic syndrome with 1% blasts and numerous ringed sideroblasts. There were multiple chromosomal abnormalities by cytogenic analysis. 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 Molecular profiling showed pathogenic alteration detected in the IDH2, JAK2, KRAS and SRSF2 genes. Patient started treatment with VIDAZA on August 14, 2017. She received two cycles so far and she is due for her third cycle on November 23, 2017. Since her last cycle two the patient did not receive any blood transfusion and her current hemoglobin is 10.1, hoping that the patient will become transfusion independent very soon with her treatment. I am planning to proceed with her treatment as scheduled and I will see her in four weeks from now with CBC and chem panel at that time. 2. Pancytopenia due to her myelodysplastic syndrome. It is improving. Patient did not receive any blood transfusion since her last cycle and her platelet count is normal. She is still having low white count at 2.3. Hopefully this will improve in the future with the treatment. PLAN 1. VIDAZA cycle number three to be given on November 23, 2017. 2. CBC, chem panel to be checked weekly. 3. Patient to return in four weeks with CBC, chem panel. 4. Consider blood transfusion if the hemoglobin is less than 8 g/dL. 5. Patient is to contact us for any new concern or complaints. [facility]
[2017-11-23 09:08] VITALS: BP 118/66
[2017-11-24 09:07] VITALS: BP 121/80
[2017-11-25 09:27] VITALS: BP 118/49
[2017-11-26 08:56] VITALS: BP 127/51
[2017-11-27 09:06] VITALS: BP 130/51
[2017-11-30 11:14] VITALS: BP 131/56
[2017-11-30 11:20] LABS: PLATELET COUNT, AUTOMATED 501 K/uL (150-450)
[2017-12-08 11:38] LABS: PLATELET COUNT, AUTOMATED 198 K/uL (150-450)
[2017-12-15 11:26] LABS: PLATELET COUNT, AUTOMATED 362 K/uL (150-450)
[2017-12-15 11:36] VITALS: BP 140/62
[2017-12-17 10:08] VITALS: BP 140/61
--- NOTE | 2017-12-17 19:44 | ONCOLOGY FOLLOW UP NOTE ---
EVENT DATE: December 17, 2017 DIAGNOSES 1. Myelodysplastic syndrome with increased ringed sideroblasts. 2. 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 CHIEF COMPLAINT Patient is here today for her cycle number four of VIDAZA for her myelodysplastic syndrome. ONCOLOGY HISTORY Patient is an 82-year-old, very nice lady who was admitted to the hospital and was found to have pancytopenia. Her CBC showed white count 1.9, hemoglobin 8.6 , hematocrit 26.4, platelets 172,000 and MCV 97.4. She had some hematological workup including serum iron which was normal at 90. TIBC was 216, iron saturation 41.7%. Vitamin B12 was more than 1500 and folate level was more than 22.3. Patient was referred for evaluation and management of pancytopenia. Patient had bone marrow aspiration biopsy done on August 04, 2017 and the diagnosis came back positive for myelodysplastic syndrome with no increased blasts. The blast count was only 1%. 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 Megakaryocytes showed patchy increase in some dysplastic features including hyperchromatic forms, abnormal small forms and abnormal large forms. FISH for MDS is still pending. 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 FISH for analysis was abnormal with 12d-. 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 Molecular profiling testing showed pathogenic alterations detected in the IDH2, JAK2, KRAS and SRSF2 genes. Patient started treatment with VIDAZA subcutaneously on August 14, 2017. HISTORY OF PRESENT ILLNESS Patient is here today for her cycle number four of VIDAZA for her myelodysplastic syndrome. Patient showed very good response to her treatment and became transfusion independent. She is complaining of easy bruising and some weakness because of her company with all her children, but generally speaking her general condition is much better than before. PAST MEDICAL HISTORY 1. History of stroke, 2001. 2. DVT, 2014. 3. Atrial fibrillation, 2010. 4. Hypertension, 2007. 5. Right renal infarct, 2008. 6. Overactive bladder, 2005. 7. Hyperparathyroidism with hypercalcemia. PAST SURGICAL HISTORY 1. Cataract extraction bilaterally. 2. Pacemaker placement, 2008. 3. Appendectomy, 2008. 4. Cholecystectomy, 1993. 5. Hysterectomy with oophorectomy. 6. Left breast biopsy in the past. FAMILY HISTORY Negative for cancer or blood diseases. SOCIAL HISTORY Patient is a . She had four sons and one daughter. 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 Denies any abuse of tobacco, alcohol or drugs. CURRENT MEDICATIONS 1. Atorvastatin 40 mg daily. 2. Spironolactone/hydrochlorothiazide 25/25 one tablet daily. 3. Xarelto 20 mg daily. 4. Vitamin D 1000 units daily. 5. Calcium carbonate and vitamin D3 chewable tablet one tablet daily. ALLERGIES No known drug allergies. REVIEW OF SYSTEMS CONSTITUTIONAL: No appetite or weight change. No fever, chills or sweating. No recent infection. HEENT: Ears: No tinnitus or hearing problem. Nose: Patient has nasal discharge. Throat: No sore throat or mouth ulcers. Eyes: No diplopia or visual changes. RESPIRATORY: She has cough with shortness of breath. CARDIOVASCULAR: No chest pain, orthopnea, or paroxysmal nocturnal dyspnea (PND) . No edema. No palpitations. GASTROINTESTINAL: No nausea or vomiting. No diarrhea or constipation. No change in bowel movements. No heartburn or swallowing difficulties. No abdominal pain. No jaundice. No hematemesis, melena or rectal bleeding. GENITOURINARY: No hematuria or dysuria. NEUROLOGICAL: Patient has occasional headache. HEMATOLOGIC/LYMPHATIC: She bruises easily. She is weak, tired and fatigued. SKIN: No skin rash or lumps. PSYCHIATRIC: No anxiety or depression. PHYSICAL EXAMINATION GENERAL: Looks stable. Well-developed, well-nourished, and in no acute distress. VITAL SIGNS: Blood pressure 140/61, pulse 59 per minute, respirations 16 per minute, temperature 96.9, pulse ox 95% on room air. HEENT: Head: Atraumatic. No sinus tenderness to palpation. Eyes: No icterus or conjunctivitis. Mouth and throat: No oral thrush or mucositis. NECK: Supple. No cervical or supraclavicular lymphadenopathy. LUNGS: Clear to auscultation and percussion bilaterally. HEART: Regular rate and rhythm. No gallops, murmurs, clicks or rubs. ABDOMEN: Soft and lax. No tenderness. No hepatosplenomegaly. No masses. EXTREMITIES: Patient has bilateral edema. LYMPHATICS: No peripheral lymphadenopathy. NEUROLOGICAL: Conscious, alert and oriented times three. No focal motor or sensory deficits. PSYCHIATRIC: Mood and affect appear normal. SKIN: Bruising of the upper extremities is noted. DIAGNOSTIC DATA CBC showed a white count of 2.3, hemoglobin 12.3, hematocrit 36.9, platelets 362 ,000. ANC is 1000. Chem panel is totally normal except calcium 10.3. ASSESSMENT 1. Myelodysplastic syndrome, proved by bone marrow aspiration biopsy done on August 04, 2017 which revealed myelodysplastic syndrome with 1% blasts and numerous ringed sideroblasts. There were multiple chromosomal abnormalities by cytogenic analysis. 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 Molecular profiling showed pathogenic alteration detected in IDH2, JAK2, KRAS and SRSF2 genes. Patient started treatment with VIDAZA on August 14, 2017. She received three cycles so far and she is due for her fourth cycle on December 21, 2017. Patient is transfusion dependent since we started her on VIDAZA. Her current hemoglobin is 12.3, which has normalized. I am planning to proceed with her fourth cycle of VIDAZA on December, and I will see her in four weeks with CBC, chem panel at that time, with CBC and chem panel to be checked weekly after her treatment. 2. Pancytopenia due to her myelodysplastic syndrome. Actually her platelet and hemoglobin normalized already. Her white count is still low and stable at 2.3. ANC is 1000. Patient was advised regarding neutropenic precautions. PLAN 1. VIDAZA cycle number four on December 21, 2017. 2. CBC, chem panel to be checked weekly. 3. Patient to return in four weeks with CBC, chem panel. 4. Patient is to contact us for any new concern or complaints. [facility]
[2017-12-21 09:41] VITALS: BP 122/61
[2017-12-22 09:26] VITALS: BP 119/48
[2017-12-23 09:34] VITALS: BP 95/52
[2017-12-24 10:12] VITALS: BP 125/50
[2017-12-25 09:50] VITALS: BP 125/55
[2017-12-28 11:08] VITALS: BP 127/55
[2017-12-28 11:29] LABS: PLATELET COUNT, AUTOMATED 369 K/uL (150-450)
[2018-01-04 11:38] VITALS: BP 134/69
[2018-01-04 11:38] LABS: PLATELET COUNT, AUTOMATED 196 K/uL (150-450)
[2018-01-07 16:33] VITALS: BP 144/61
--- NOTE | 2018-01-07 22:15 | ONCOLOGY FOLLOW UP NOTE ---
EVENT DATE: January 07, 2018 DIAGNOSES 1. Myelodysplastic syndrome with increased ringed sideroblasts. 2. 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 CHIEF COMPLAINT Patient is here today for her cycle number five of VIDAZA for her myelodysplastic syndrome. ONCOLOGY HISTORY Patient is an 82-year-old, very nice lady who was admitted to the hospital and was found to have pancytopenia. Her CBC showed white count 1.9, hemoglobin 8.6 , hematocrit 26.4, platelets 172,000 and MCV 97.4. She had some hematological workup including serum iron which was normal at 90. TIBC was 216, iron saturation 41.7%. Vitamin B12 was more than 1500 and folate level was more than 22.3. Patient was referred for evaluation and management of pancytopenia. Patient had bone marrow aspiration biopsy done on August 04, 2017 and the diagnosis came back positive for myelodysplastic syndrome with no increased blasts. The blast count was only 1%. 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 Megakaryocytes showed patchy increase in some dysplastic features including hyperchromatic forms, abnormal small forms and abnormal large forms. FISH for MDS is still pending. 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 FISH for analysis was abnormal with 12d-. 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 Molecular profiling testing showed pathogenic alterations detected in the IDH2, JAK2, KRAS and SRSF2 genes. Patient started treatment with VIDAZA subcutaneously on August 14, 2017. HISTORY OF PRESENT ILLNESS Patient is here today for her cycle number five of VIDAZA for her myelodysplastic syndrome. Patient showed a very good response to her treatment and became transfusion independent. Currently is complaining of easy bruising, but other than that she is feeling much better. Her energy level is much better too. PAST MEDICAL HISTORY 1. History of stroke, 2001. 2. DVT, 2014. 3. Atrial fibrillation, 2010. 4. Hypertension, 2007. 5. Right renal infarct, 2008. 6. Overactive bladder, 2005. 7. Hyperparathyroidism with hypercalcemia. PAST SURGICAL HISTORY 1. Cataract extraction bilaterally. 2. Pacemaker placement, 2008. 3. Appendectomy, 2008. 4. Cholecystectomy, 1993. 5. Hysterectomy with oophorectomy. 6. Left breast biopsy in the past. FAMILY HISTORY Negative for cancer or blood diseases. SOCIAL HISTORY Patient is a . She had four sons and one daughter. 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 Denies any abuse of tobacco, alcohol or drugs. CURRENT MEDICATIONS 1. Atorvastatin 40 mg daily. 2. Spironolactone/hydrochlorothiazide 25/25 one tablet daily. 3. Xarelto 20 mg daily. 4. Vitamin D 1000 units daily. 5. Calcium carbonate and vitamin D3 chewable tablet one tablet daily. ALLERGIES No known drug allergies. REVIEW OF SYSTEMS CONSTITUTIONAL: No appetite or weight change. No fever, chills or sweating. No recent infection. HEENT: Ears: No tinnitus or hearing problem. Nose: No nasal discharge or epistaxis. Throat: No sore throat or mouth ulcers. Eyes: No diplopia or visual changes. RESPIRATORY: No shortness of breath. No cough, expectoration or hemoptysis. CARDIOVASCULAR: No chest pain, orthopnea, or paroxysmal nocturnal dyspnea (PND) . No edema. No palpitations. GASTROINTESTINAL: No nausea or vomiting. No diarrhea or constipation. No change in bowel movements. No heartburn or swallowing difficulties. No abdominal pain. No jaundice. No hematemesis, melena or rectal bleeding. GENITOURINARY: No hematuria or dysuria. MUSCULOSKELETAL: No pain in the muscles, joints or bones. NEUROLOGICAL: No tingling or numbness in the hands or feet. No headaches or convulsions. HEMATOLOGIC/LYMPHATIC: She bruises easily. No weakness or fatigue. No enlarged lymph nodes. SKIN: No skin rash or lumps. PSYCHIATRIC: No anxiety or depression. PHYSICAL EXAMINATION GENERAL: Looks stable. Well-developed, well-nourished, and in no acute distress. VITAL SIGNS: Blood pressure 144/61, pulse 60 per minute, respirations 16 per minute, temperature 97.3, pulse ox 96% on room air. HEENT: Head: Atraumatic. No sinus tenderness to palpation. Eyes: No icterus or conjunctivitis. Mouth and throat: No oral thrush or mucositis. NECK: Supple. No cervical or supraclavicular lymphadenopathy. LUNGS: Clear to auscultation and percussion bilaterally. HEART: Regular rate and rhythm. No gallops, murmurs, clicks or rubs. ABDOMEN: Soft and lax. No tenderness. No hepatosplenomegaly. No masses. EXTREMITIES: Patient has bilateral edema. LYMPHATICS: No peripheral lymphadenopathy. NEUROLOGICAL: Conscious, alert and oriented times three. No focal motor or sensory deficits. PSYCHIATRIC: Mood and affect appear normal. SKIN: Bruising of the upper extremities is noted. DIAGNOSTIC DATA CBC showed a white count of 1.9, hemoglobin 12, hematocrit 35.8, platelets 196, 000. ANC is 0.6. Chem panel is totally normal except total protein 6, albumin 3.1. ASSESSMENT 1. Myelodysplastic syndrome, proved by bone marrow aspiration biopsy done on August 04, 2017 which revealed myelodysplastic syndrome with 1% blasts and numerous ringed sideroblasts. There were multiple chromosomal abnormalities by cytogenic analysis. 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 Molecular profiling showed pathogenic alteration detected in IDH2, JAK2, KRAS and SRSF2 genes. Patient started treatment with VIDAZA on August 14, 2017. She received four cycles so far and she is due for her fifth cycle on January 11, 2018. Patient became transfusion dependent after she started on VIDAZA. Her current hemoglobin is 12, which has normalized. She is always having neutropenia, and I am planning with her fifth cycle of VIDAZA to decrease the dose by one day so the patient will have four days instead of five days of treatment. So we will decrease the dose by 20% to see if this will help to raise her neutrophils to a safer level, and at the same time she maintain the response she had with her hemoglobin and platelet count. Patient ischemia gallbladder with that. I am planning to see her in four weeks from now with CBC and chem panel, and we will continue to monitor her CBC and chem panel on a weekly basis. 2. Pancytopenia due to her myelodysplastic syndrome. Her platelet and hemoglobin currently are normal. Her white count is low at 1.9 and ANC is 600, which is getting worse, and for this reason I am planning to decrease the dose of VIDAZA by 20%, and we will see if this will help her white count. PLAN 1. VIDAZA cycle number five on January 11, 2018, and we will give four days instead of five days this time. 2. CBC, chem panel to be checked weekly. 3. Patient to return in four weeks with CBC, chem panel. 4. Patient is to contact us for any new concerns or complaints. MTDD
[2018-01-11 11:40] LABS: PLATELET COUNT, AUTOMATED 380 K/uL (150-450)
[2018-01-11 12:00] VITALS: BP 128/59
[2018-01-18 11:49] LABS: PLATELET COUNT, AUTOMATED 760 K/uL (150-450)
[2018-01-18 17:00] VITALS: BP 146/68
[~2018-01-26] VITALS: Ht 160 cm; Wt 67.4 kg
[~2018-01-26] MED LIST changes: -ACETAMINOPHEN 325 MG TAB PO ONE; -ACETAMINOPHEN 325 MG TAB PO PRN; -ALTEPLASE RECOMB 2 MG VIAL IVP PRN; -DEXTROSE 5%(*) 100 ML BAG 100 ML IVPB PRN; -HEPARIN FLSH (PORT) 500 UN/5ML IVP PRN; -LIDOCAINE/SOD BICARB 8.4% SYR ID PRN; -NS(*) 0.9% 100 ML BAG 100 ML IVPB PRN; -NS(*) 0.9% 500 ML BAG 500 ML IV ONE; -NS(*) 0.9% 500 ML BAG 500 ML IV PRN; +SPIR25TA80 PO; -WATER FOR INJ,STERILE 20 ML IVP PRN; -diphenhydrAMINE 25 MG CAP PO ONE; -diphenhydrAMINE 25 MG CAP PO PRN
[2018-01-26 09:29] VITALS: BP 135/66
== END ==
LOC: ONC 10-28 07:41 → SPU 11-02 10:51 → ONC 11-20 10:50 → SPU 11-30 10:53 → ONC 12-17 09:55 → SPU 12-28 10:55 → ONC 01-07 16:17 → SPU 01-11 11:21 → ONC 09:23
PROVIDERS: ATTEND Internal Medicine Hematology
DX: D46.9 Myelodysplastic syndrome, unspecified (principal); D64.9 Anemia, unspecified; D61.818 Other pancytopenia; Z79.899 Other long term (current) drug therapy; R05 Cough; R06.02 Shortness of breath; R53.1 Weakness; R53.83 Other fatigue; Z79.01 Long term (current) use of anticoagulants
CPT/HCPCS: 36415; 83615; 84100; 84550; 85025; 85027; 96372; G0463; J9025; 82040; 82247; 82310; 82374; 82435; 82565; 82947; 84075; 84132; 84155; 84295; 84450; 84460; 84520; 99212

== ENCOUNTER 2018-03-23 00:28 | Day surgery (SDC) | payer MEDICARE, OTHER ==
[2017-07-20 16:11] VITALS: Ht 160 cm; Wt 68.0 kg
[~2018-03-23] VITALS: Ht 160 cm; Wt 68.0 kg
[~2018-03-23 00:28] MED LIST changes: -AZACITIDINE SC ONE; +DIPH-741 PO; -ONDANSETRON 4 MG ODT TABDP SL PRN
[2018-03-23] MEDS ORDERED: FAMOTIDINE 20 MG TAB PO ONE (06:30)
[2018-03-23] MEDS ORDERED: LIDOCAINE/SOD BICARB 8.4% SYR ID ONE (06:30)
[2018-03-23] MEDS ORDERED: MIDAZOLAM 2 MG/2 ML VIAL IVP PRN (06:30)
[2018-03-23] MEDS ORDERED: NORMOSOL R SOLN(*) 1000 ML BAG 1,000 ML IV PRN (06:30)
[2018-03-23] MEDS ORDERED: ceFAZolin(*) 2GM/D5W 50ML 50 ML IVPB ONE (06:30)
[2018-03-23 06:49] VITALS: BP 139/69
[2018-03-23] MEDS ORDERED: HEPARIN SOD LCK FLSH 100 UN/ML ONE (07:09)
[2018-03-23] MEDS ORDERED: ROPIVACAINE 0.5% 20 ML VIAL ONE (07:09)
[2018-03-23] MEDS ORDERED: NS(*) 0.9% 10 ML VIAL 20 ML ONE (07:09)
[2018-03-23] MEDS ORDERED: PROPOFOL EMUL(*) 10MG/ML 20 ML 20 ML ONE (07:12)
[2018-03-23] MEDS ORDERED: ONDANSETRON 4 MG/2 ML VIAL ONE (07:12)
[2018-03-23] MEDS ORDERED: LIDOCAINE MPF 1% 5 ML VIAL ONE (07:12)
[2018-03-23] MEDS ORDERED: DEXAMETHASONE SOD 4 MG/ML VIAL ONE (07:13)
[2018-03-23] MEDS ORDERED: fentaNYL CITR 100 MCG/2 ML AMP ONE (07:14)
--- NOTE | 2018-03-23 08:37 | Short(Outpt) Discharge Summary ---
Discharge Summary Reason for Hosp/Final Diag: (1) Myelodysplasia (myelodysplastic syndrome) Status: Chronic Hospital Course & Plan: Right IJ Power Port placed without problems. Departure Discharge to: Home, Self Care Discharge Instructions Home Meds Active Scripts Diphenhydramine Hcl (BENADRYL ALLERGY) 25 Mg Tablet, 25 MG PO Q6-8H for 10 Days, TAB Prov:KRUPASHARLA GREY TENDER-C, ONC 02/26/18 Furosemide (FUROSEMIDE) 40 Mg Tablet, 40 MG PO QDAY, #90 TAB Prov:SCAR MOSS MD 08/05/17 Potassium Chloride (POTASSIUM CHLORIDE) 20 Meq Tab.er.prt, 20 MEQ PO QDAY, #90 TAB Prov:SCAR MOSS MD 08/05/17 Acetaminophen (MAPAP) 325 Mg Tablet, 650 MG PO Q6H PRN for FEVER/PAIN, #30 TAB Prov:SCAR MOSS MD 08/05/17 Rivaroxaban 20 Mg (XARELTO 20 MG) 20 Mg Tablet, 1 TAB PO DAILY, #90 TAB 3 Refills Prov:MARIANGEL DOLL MD 08/19/16 Reported Medications Azacitidine (AZACITIDINE) 100 Mg Vial, 130 MG SC Days 1-5 of a 28 day cycle 09/21/17 Prochlorperazine Maleate (Compazine) 10 Mg Tablet, 10 MG PO Q6H PRN for NAUSEA 09/21/17 Ondansetron (ZOFRAN ODT) 4 Mg Tab.rapdis, 8 MG PO Q8H PRN for NAUSEA, TAB.SHIKHA 09/21/17 Cholecalciferol (Vitamin D3) (VITAMIN D3) 1,000 Unit Tablet, 1000 UNIT PO QDAY 05/19/14 Ca Carbonate/Vitamin D3/Vit K (Citracal Soft Chew) 1 Each Tab.chew, 1 TAB PO QDAY 05/19/14 Diet: Regular Activity: As Tolerated Special Instructions: You may shower starting on , 03/25/18, but don't immerse the incisions for 2 weeks. Leave the incisions open to air but leave the steristrips in place until they fall off on their own. There is an external suture in the incision on your neck that "should" fall off in the next 2 weeks. If it doesn't, give it a gentle tug and if it doesn't come out then someone at the cancer center can remove it or you can call my office at [phone] (my nurse Doris's extension) and we'll have you come in so I can remove the suture. CLARISSA TEE MD Mar 23, 2018 08:37
--- NOTE | 2018-03-23 08:43 | Post Operative Progress Note ---
Post Operative Progress Note Date: Mar 23, 2018 Time: 08:38 Surgeon: Cesar Dictation number: [id number] Anesthesia: LMA by Dr. Evans Pre-Op Diagnosis: Myelodysplastic syndrome Post-Op Diagnosis: ALEJANDRA Findings: None Procedure(s): Right IJ Power Port Placement Specimen Removed:(May be N/A): None Complications: None Fluids: See anesthesia record Estimated Blood Loss: Minimal Date OP Note Dictated: Mar 23, 2018 Time OP Note Dictated: 08:39 CLARISSA TEE MD Mar 23, 2018 08:43
--- NOTE | 2018-03-23 09:05 | RADIOLOGY IMAGING REPORT ---
FACILITY: [facility] [place] PATIENT NAME: Acacia Mchugh : 1935 MR: [id number] V: [id number] EXAM DATE: ORDERING PHYSICIAN: CLARISSA TEE TECHNOLOGIST: Location: [facility] Patient: Acacia Mchugh : 1935 Visit/Account:[id number] Date of Sevice: 03/23/2018 Exam type: C-ARM FLUORO PORT/CATH History: POWERPORT PLACEMENT Comparison: None. Findings: One C-arm intraoperative spot view over the upper thorax demonstrates placement of a right IJ implant ed port. The total fluoroscopy time was 37.8 seconds. The cumulative continuous possibly dose was 0 .14630 mGray per meter squared IMPRESSION: 1. As above Report Dictated By: Deya Barrera MD at 03/23/2018 9:01 AM Report E-Signed By: Deya Barrera MD at 03/23/2018 9:02 AM WSN:[email or web address]
--- NOTE | 2018-03-23 09:07 | RADIOLOGY IMAGING REPORT ---
FACILITY: [facility] [place] PATIENT NAME: Acacia Mchugh : 1935 MR: [id number] V: [id number] EXAM DATE: ORDERING PHYSICIAN: CLARISSA TEE TECHNOLOGIST: Location: [facility] [place] Patient: Acacia Mchugh : 1935 Visit/Account:[id number] Date of Sevice: 03/23/2018 Exam type: CHEST SINGLE AP History: Right IJ Power Port placement Comparison: July 23, 2017. Findings: There are hypoventilatory changes from a limited inspiratory effort. The central peribronchial thick ening noted bilaterally. There has been placement of a right IJ port with the distal tip projecting over the superior vena cava. No pneumothorax is seen. The cardiac silhouette is normal in size. Du al lead cardiac pacemaker again noted IMPRESSION: 1. Interval placement of a right IJ port distal tip projects over the superior vena cava with no ryder dence of pneumothorax Hypoventilatory changes from a limited inspiratory effort Central peribronchial thickening Report Dictated By: Deya Barrera MD at 03/23/2018 9:02 AM Report E-Signed By: Deya Barrera MD at 03/23/2018 9:03 AM WSN:[email or web address]
[2018-03-23 09:33] VITALS: BP 157/68
[2018-03-23 09:35] VITALS: BP 158/67
[2018-03-23 09:37] VITALS: BP 156/68
--- NOTE | 2018-03-23 10:48 | OPERATIVE REPORT 1 ---
EVENT DATE: March 23, 2018 SURGEON: Sunny Guerrero M.D. ANESTHESIOLOGIST: Felix Evans M.D. ANESTHESIA: LMA. PREOPERATIVE DIAGNOSIS Myelodysplasia. POSTOPERATIVE DIAGNOSIS Myelodysplasia. PROCEDURE PERFORMED Right internal jugular vein PowerPort placement. COMPLICATIONS None. CONDITION Stable. ESTIMATED BLOOD LOSS Minimal. INDICATIONS Patient is an 82-year-old female who was [facility] and they are treating her for myelodysplasia and they have requested a PowerPort placement to facilitate her therapy. DESCRIPTION OF PROCEDURE The patient was brought into the operating room and placed supine on the operating table. LMA anesthesia was administered and her right neck, shoulder and chest were prepped and draped in a sterile fashion. Time-out was completed. With her in Trendelenburg, I used the ultrasound and identified the right internal jugular vein and was able to assess the vein with the needle on one attempt under ultrasound guidance. I thread the wire through the needle and removed the needle and then confirmed wire placement in the SVC with the C-arm fluoroscope. I then anesthetized the skin in the neck and then in the right infraclavicular skin and then made a stab incision in the neck where the wire entered the skin and then a transverse incision in the right infraclavicular skin. I used the electrocautery to divide the dermis and into the subcutaneous fat in a hemostatic fashion and then created a pocket caudad to the incision and made sure this was hemostatic. I used the tunneler and pulled the catheter through the subcutaneous tissue from the pocket up to the stab incision in the neck and then threaded the dilator and sheath over the wire with the patient in Trendelenburg and removed the dilator and wire and thread the catheter through the sheath and removed the sheath. I then used the C-arm fluoroscope to position the tip of the catheter in the SVC just above the right atrium and then cut the catheter length, placed the port on the catheter and locked into place with locking cup. I then sutured the port down to the underlying muscle fascia with 3-0 Nylon at the corners and then aspirated blood through the port and catheter and then flushed it with 10 mL of normal saline followed by 5 mL of 100 units/mL of heparinated saline for a total of 500 units of heparin. I aspirated and flushed without any problems. I took more c-arm images to confirm good placement and that there were no kinks or twists and then I placed a single 3-0 Chromic suture in the stab incision in the neck and then closed the skin at the port site with interrupted 3-0 Vicryl deep dermal sutures and 4-0 Monocryl running subcutaneous sutures. The skin was cleaned and dried and steri-strips applied. The patient was awakened and transferred to the recovery room in stable condition having tolerated the procedure without any apparent problems. A chest x-ray is now pending. OLAMIDE
== END 2018-03-23 09:33 | disposition home or self-care (01) ==
LOC: OR 00:28
PROVIDERS: ATTEND Surgery
DX: D46.9 Myelodysplastic syndrome, unspecified (principal)
CPT/HCPCS: 36561; 71045; 77001; A9270; C1788; J1100; J1642; J2001; J2405; J2704; J2795; J3010; J0690

== ENCOUNTER → 2018-04-27 | Outpatient (RCR) | payer MEDICARE, OTHER ==
[2017-07-20 16:11] VITALS: Ht 160 cm; Wt 71.9 kg
[2018-01-27 09:36] VITALS: BP 112/40
[2018-01-28 09:54] VITALS: BP 112/52
[2018-01-29 10:00] VITALS: BP 138/87
[2018-02-02 11:55] VITALS: BP 130/65
[2018-02-02 11:58] LABS: PLATELET COUNT, AUTOMATED 349 K/uL (150-450)
[2018-02-04 14:41] VITALS: BP 126/62
--- NOTE | 2018-02-04 20:08 | ONCOLOGY FOLLOW UP NOTE ---
EVENT DATE: February 04, 2018 DIAGNOSES 1. Myelodysplastic syndrome with increased ringed sideroblasts. 2. 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 CHIEF COMPLAINT Patient is here today for her cycle number six of VIDAZA for her myelodysplastic syndrome. ONCOLOGY HISTORY Patient is an 82-year-old, very nice lady who was admitted to the hospital and was found to have pancytopenia. Her CBC showed white count 1.9, hemoglobin 8.6 , hematocrit 26.4, platelets 172,000 and MCV 97.4. She had some hematological workup including serum iron which was normal at 90. TIBC was 216, iron saturation 41.7%. Vitamin B12 was more than 1500 and folate level was more than 22.3. Patient was referred for evaluation and management of pancytopenia. Patient had bone marrow aspiration biopsy done on August 04, 2017 and the diagnosis came back positive for myelodysplastic syndrome with no increased blasts. The blast count was only 1%. 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 Megakaryocytes showed patchy increase in some dysplastic features including hyperchromatic forms, abnormal small forms and abnormal large forms. FISH for MDS is still pending. 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 FISH for analysis was abnormal with 12d-. 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 Molecular profiling testing showed pathogenic alterations detected in the IDH2, JAK2, KRAS and SRSF2 genes. Patient started treatment with VIDAZA subcutaneously on August 14, 2017. HISTORY OF PRESENT ILLNESS Patient is here today for her cycle number six of VIDAZA for her myelodysplastic syndrome. She is doing very well currently and she is completely asymptomatic this visit. Her energy level at the roof and she is really doing very well. She continues to have easy bruising. PAST MEDICAL HISTORY 1. History of stroke, 2001. 2. DVT, 2014. 3. Atrial fibrillation, 2010. 4. Hypertension, 2007. 5. Right renal infarct, 2008. 6. Overactive bladder, 2005. 7. Hyperparathyroidism with hypercalcemia. PAST SURGICAL HISTORY 1. Cataract extraction bilaterally. 2. Pacemaker placement, 2008. 3. Appendectomy, 2008. 4. Cholecystectomy, 1993. 5. Hysterectomy with oophorectomy. 6. Left breast biopsy in the past. FAMILY HISTORY Negative for cancer or blood diseases. SOCIAL HISTORY Patient is a . She had four sons and one daughter. 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 Denies any abuse of tobacco, alcohol or drugs. CURRENT MEDICATIONS 1. Atorvastatin 40 mg daily. 2. Spironolactone/hydrochlorothiazide 25/25 one tablet daily. 3. Xarelto 20 mg daily. 4. Vitamin D 1000 units daily. 5. Calcium carbonate and vitamin D3 chewable tablet one tablet daily. ALLERGIES No known drug allergies. REVIEW OF SYSTEMS CONSTITUTIONAL: No appetite or weight change. No fever, chills or sweating. No recent infection. HEENT: Ears: No tinnitus or hearing problem. Nose: No nasal discharge or epistaxis. Throat: No sore throat or mouth ulcers. Eyes: No diplopia or visual changes. RESPIRATORY: No shortness of breath. No cough, expectoration or hemoptysis. CARDIOVASCULAR: No chest pain, orthopnea, or paroxysmal nocturnal dyspnea (PND) . No edema. No palpitations. GASTROINTESTINAL: No nausea or vomiting. No diarrhea or constipation. No change in bowel movements. No heartburn or swallowing difficulties. No abdominal pain. No jaundice. No hematemesis, melena or rectal bleeding. GENITOURINARY: No hematuria or dysuria. MUSCULOSKELETAL: No pain in the muscles, joints or bones. NEUROLOGICAL: No tingling or numbness in the hands or feet. No headaches or convulsions. HEMATOLOGIC/LYMPHATIC: She bruises easily. No weakness or fatigue. No enlarged lymph nodes. SKIN: No skin rash or lumps. PSYCHIATRIC: No anxiety or depression. PHYSICAL EXAMINATION GENERAL: Looks stable. Well-developed, well-nourished, and in no acute distress. VITAL SIGNS: Blood pressure 126/62, pulse 60 per minute, respirations 16 per minute, temperature 96, pulse ox 96% on room air. HEENT: Head: Atraumatic. No sinus tenderness to palpation. Eyes: No icterus or conjunctivitis. Mouth and throat: No oral thrush or mucositis. NECK: Supple. No cervical or supraclavicular lymphadenopathy. LUNGS: Clear to auscultation and percussion bilaterally. HEART: Regular rate and rhythm. No gallops, murmurs, clicks or rubs. ABDOMEN: Soft and lax. No tenderness. No hepatosplenomegaly. No masses. EXTREMITIES: Patient has bilateral edema. LYMPHATICS: No peripheral lymphadenopathy. NEUROLOGICAL: Conscious, alert and oriented times three. No focal motor or sensory deficits. PSYCHIATRIC: Mood and affect appear normal. SKIN: Bruising of the upper extremities is noted. DIAGNOSTIC DATA CBC showed a white count of 2.1, hemoglobin 12.6, hematocrit 37.3, platelets 349 ,000. ANC increased from 0.5 to 0.8. Chem panel is totally normal except total protein 6.2, albumin 3.4, BUN 22. ASSESSMENT 1. Myelodysplastic syndrome, proved by bone marrow aspiration biopsy done on August 04, 2017 which revealed myelodysplastic syndrome with 1% blasts and numerous ringed sideroblasts. There were multiple chromosomal abnormalities by cytogenic analysis. 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 Molecular profiling showed pathogenic alteration detected in IDH2, JAK2, KRAS and SRSF2 genes. Patient started treatment with VIDAZA on August 14, 2017. She received five cycles so far and she started her sixth cycle this time. Patient became transfusion dependent after she started VIDAZA. Her hemoglobin currently is 12.6, which is normalized. She has neutropenia and her last cycle of VIDAZA we decreased the dose by 20% so she took four days instead of five days, and I see improvement in her white count which improved from .4 to 2.1 and neutrophils improved from 0.5 to 0.8. I am planning to continue the same. I am planning to check a CBC, chem panel weekly and I will see her in four weeks with CBC and chem panel at that time. 2. Pancytopenia due to myelodysplastic syndrome. Platelet and hemoglobin normalized. Her white count improved a little after we decreased the dose by 20 %. We will continue to monitor. PLAN 1. VIDAZA cycle number six, and the patient received it four days instead of five days. 2. CBC, chem panel to be checked weekly. 3. Patient to return in four weeks with CBC, chem panel. 4. Patient is to contact us for any new concern or complaints. [facility]
[2018-02-09 11:39] VITALS: BP 128/82
[2018-02-09 11:51] LABS: PLATELET COUNT, AUTOMATED 239 K/uL (150-450)
[2018-02-16 11:42] VITALS: BP 151/72
[2018-02-16 11:45] LABS: PLATELET COUNT, AUTOMATED 391 K/uL (150-450)
[2018-02-23 09:47] VITALS: BP 125/49
[2018-02-24 09:28] VITALS: BP 130/54
[2018-02-25 09:56] VITALS: BP 135/55
[2018-02-26 09:52] VITALS: BP 160/65
--- NOTE | 2018-02-26 12:16 | Oncology Progress Note ---
History of Present Illness Evaluation Evaluation Date: Feb 26, 2018 Evaluation Time: 10:30 Primary Care Provider Primary Care Provider: Anibal Accompanied by Accompanied by: John ( son) Last seen by : Alexandro 02/04/2018 Chief Complaint Chief Complaint "Rash & itchiness, on back, neck , abdomen x 3 days" Oncology History Oncology History Patient is an 82-year-old, very nice lady who was admitted to the hospital and was found to have pancytopenia. Her CBC showed white count 1.9, hemoglobin 8.6 , hematocrit 26.4, platelets 172,000 and MCV 97.4. She had some hematological workup including serum iron which was normal at 90. TIBC was 216, iron saturation 41.7%. Vitamin B12 was more than 1500 and folate level was more than 22.3. Patient was referred for evaluation and management of pancytopenia. - August 04, 2017 patient had bone marrow aspiration biopsy done on July and the diagnosis came back positive for myelodysplastic syndrome with no increased blasts. - The blast count was only 1%. 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 Megakaryocytes showed patchy increase in some dysplastic features including hyperchromatic forms, abnormal small forms and abnormal large forms. 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 FISH for analysis was abnormal with 12d-. - The deletion of 12p is present in 76% of the nuclei examined. Molecular profiling testing showed pathogenic alterations detected in the IDH2, JAK2, KRAS and SRSF2 genes. - August 14, 2017 Patient started treatment with VIDAZA subcutaneously on August 14, 2017. Treatment Treatment VIDAZA for her myelodysplastic syndrome Started 07/2017. HPI HPI Mrs. Kali Roger is an 82 year old female who has Myelodysplastic syndrome , proved by bone marrow aspiration biopsy done on August 04, 2017. Patient currently on 4 day q 28 days Vidaza treatment since 07/2017. She has tolerated treatment very well, requiring minimum blood products transfusion. Patient is seen and examined at infusion room for her C6/d4 of Vidaza., she presents with skin rash and multiple erythema, back of neck, and left flank, abdomen, as well as rash over sacrum. Patient's son Mr. Lopez, reports extreme itchiness, since 02/23/2018. Denies pain. she has taken Benadryl for itchiness. mildly improved the itchiness. Patient appears weak, awake , alert, oriented to place, and person, with slow in verbal response, but seem to have a good understanding of events if spoken to slowly, and with patient. She is hemodynamically stable, with elevated BP. Son reports this fluctuates up and down. Denies any cardiac type chest pain, no abdominal pain, no fevers at home, no night sweats, no chills, no spontaneous bleeding. , no nausea vomiting diarrhea, no constipation, no dark stools .Oral intake appetite ok, patient has maintained baseline weight since initiating treatment, reports no changes in bowel or bladder pattern, no PND, no dizziness, or headaches nor blurry vision. Significant past medical history of Dementia; DVT, atrial fibrillation, pacemaker placement, hypertension, right renal infarct, overactive bladder, dementia, hyperparathyroidism with hypercalcemia Living Conditions Lives with her son John, who is POA. Diagnostic Studies Result Diagram: 02/23/[id number] [facility] Patient History: FH: CVA (cerebrovascular accident) MOTHER, , Age:67 FH: MA (myocardial infarction) BROTHER, , Age:60 Social/Occupational History Social History: Social History This is a 82 Yr old White female, she is W / and has [] Children Hx Smoking: Yes Smoking Status: Former Smoker When Quit Tobacco?: quit in 1954 Allergies & Medications Allergies: Coded Allergies: No Known Allergies (Verified Allergy, Mild, 07/31/17) Home Meds Active Scripts Diphenhydramine Hcl (BENADRYL ALLERGY) 25 Mg Tablet, 25 MG PO Q6-8H for 10 Days , TAB Prov:SHARLA GENTILE, ONC 02/26/18 Furosemide (FUROSEMIDE) 40 Mg Tablet, 40 MG PO QDAY, #90 TAB Prov:SCAR MOSS MD 08/05/17 Potassium Chloride (POTASSIUM CHLORIDE) 20 Meq Tab.er.prt, 20 MEQ PO QDAY, #90 TAB Prov:SCAR MOSS MD 08/05/17 Acetaminophen (MAPAP) 325 Mg Tablet, 650 MG PO Q6H Y for FEVER/PAIN, #30 TAB Prov:SCAR MOSS MD 08/05/17 Rivaroxaban 20 Mg (XARELTO 20 MG) 20 Mg Tablet, 1 TAB PO DAILY, #90 TAB 3 Refills Prov:ANIBALMARIANGEL MD 08/19/16 Reported Medications Azacitidine (AZACITIDINE) 100 Mg Vial, 130 MG SC Days 1-5 of a 28 day cycle 09/21/17 Prochlorperazine Maleate (Compazine) 10 Mg Tablet, 10 MG PO Q6H Y for NAUSEA 09/21/17 Ondansetron (ZOFRAN ODT) 4 Mg Tab.rapdis, 8 MG PO Q8H Y for NAUSEA, TAB.SHIKHA 09/21/17 Cholecalciferol (Vitamin D3) (VITAMIN D3) 1,000 Unit Tablet, 1000 UNIT PO QDAY 05/19/14 Ca Carbonate/Vitamin D3/Vit K (Citracal Soft Chew) 1 Each Tab.chew, 1 TAB PO QDAY 05/19/14 Review of Systems Constitution: Denies Appetite/Weight Change, Denies Fever/Chills/Sweating, Denies Recent Infection, Denies Other HEENT: No EARS: Tinnitus, No NOSE: Nasal Discharge, No THROAT: Sore Throat, No EYES: Dipolpia, No EARS: Hearing Problems, No NOSE: Epistaxis, No THROAT: Mouth Ulcers, No EYES: Vision Change, No OTHER Respiratory: No Cough, No Expectoration, No Hemoptysis, No Shortness of Breath , No OTHER Cardiovascular: No Chest Pain, No Orthopnea, No Edema, No Palpitations, No OTHER Gastrointestinal: No Nausea, No Vomitting, No Diarrehea, No Constipation, No Heart Burn, No Swallowing Difficulties, No Abdominal Pain, No Other Gentiourinary: No Hematuria, No Dysuria, No Nocturia, No Other Musculoskeletal: No Muscle Pain, No Joint Pain, No Bone Pain, No Other Hematological: Weakness, Bruising, Fatigue Skin: Skin Rash Psychiatric: No Anxiety, No Depression, Other Vital Signs Vital Signs Temperature: 97.8 Pulse: 60 BP Systolic: 160 BP Diastolic: 65 Respiratory Rate: 16 O2 SAT: 93 O2 Delivery: Height (feet) Height (inches) 63.00 Weight lb: 145 Weight oz: 11.0 Weight Kg (Mo): Pain: 0 ECOG- 2 Physical Exam General: Looks Stable (in no acute distress) HEENT: HEAD:Atraumatic Neck: Supple Lungs: Other (Diminished) Heart: Regular Rate and Rhythm Abdomen: Soft and Nontender Extremities: Edema (bilateral +2) Psychiatric: Mood appears normal, Other Skin: Skin Rashes, Errythema, Other (Dry skin) Breast: No Masses Assessment and Plan Assessment and Plan Mrs. Kali Roger is an 82 year old female who has Myelodysplastic syndrome , proved by bone marrow aspiration biopsy done on August 04, 2017. Patient currently on 4 day q 28 days Vidaza treatment since 07/2017. She has tolerated treatment very well, requiring minimum blood products transfusion. Patient is seen and examined at infusion room for her C6/d4 of Vidaza., she presents with skin rash and multiple erythema, back of neck, and left flank, abdomen, as well as rash over sacrum. Patient's son Mr. Lopez, reports extreme itchiness, since 02/23/2018. Denies pain. she has taken Benadryl for itchiness. mildly improved the itchiness. Patient appears weak, awake , alert, oriented to place, and person, with slow in verbal response, but seem to have a good understanding of events if spoken to slowly, and with patient. She is hemodynamically stable, with elevated BP. Son reports this fluctuates up and down. Significant past medical history of Dementia; DVT, atrial fibrillation, pacemaker placement, hypertension, right renal infarct, overactive bladder, dementia, hyperparathyroidism with hypercalcemia, 1. Myelodysplastic syndrome, proved by bone marrow aspiration biopsy done on August 04, 2017 which revealed myelodysplastic syndrome with 1% blasts and numerous ringed sideroblasts. There were multiple chromosomal abnormalities by cytogenic analysis. 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 Molecular profiling showed pathogenic alteration detected in IDH2, JAK2, KRAS and SRSF2 genes. Patient started treatment with VIDAZA on August 14, 2017. She received five cycles so far and she started her sixth cycle this time. Patient became transfusion dependent after she started VIDAZA. Her hemoglobin currently is 12.6, which is normalized. She has neutropenia and her last cycle of VIDAZA we decreased the dose by 20% so she took four days instead of five days, and I see improvement in her white count which improved from .4 to 2.1 and neutrophils improved from 0.5 to 0.8. I am planning to continue the same. I am planning to check a CBC, chem panel weekly and I will see her in four weeks with CBC and chem panel at that time. 2. Pancytopenia due to myelodysplastic syndrome. Platelet and hemoglobin normalized. Her white count improved a little after we decreased the dose by 20 %. We will continue to monitor. 3. Skin reactions, on exam rash and pronounced generalized erythema on abdomen , back of neck, and left flank. as well as rash over sacrum. Patient's son Mr. lopez, reports extreme itchiness, since 02/23/2018. denies pain. she has taken Benadryl for itchiness. mildly improved the itchiness. Shingles cannot be ruled out, for this reason we will treat will initiate treatment with acyclovir and hold treatment for today. CHRONIC managed by PCP 1.History of stroke, 2001. 2. DVT, 2014. 3. Atrial fibrillation, 2010. Xarelto 20 mg daily. 4. Hypertension, 2007. Per son, patient not taking BP meds currently. 5. Right renal infarct, 2008. 6. Overactive bladder, 2005. 7. Hyperparathyroidism with hypercalcemia. PAST SURGICAL HISTORY 1. Cataract extraction bilaterally. 2. Pacemaker placement, 2008. 3. Appendectomy, 2008. 4. Cholecystectomy, 1993. 5. Hysterectomy with oophorectomy. 6. Left breast biopsy in the past. PLAN 1. We will hold VIDAZA C6/D4 today 02/26/18 ( patient is on a four days cycle instead of five days). Plan discussed with Dr. Mc today. 2. Initiate acyclovir 400mg Po daily x 10 days for presumed shingles, she may take 325mg Tylenol Po for pain, and tumeric powder sprinkle on her food. PRN 3. CBC, chem panel to be checked weekly. 4. Patient to return in four weeks with CBC, chem panel. 5. Initiated conversation with Son in terms of delivering Vidaza via IV, vs. SC , given the skin manifestations and possible Port placementt. He was frustrated about plan, as he wanted to know if the treatment will go on forever. That said, he agrees to will think about it and talk to Dr. Mc on treatment plan moving forward. 7. patient has upcoming appointment with Dr. Arce next 03/04/18. to discuss future treatment plan 8. Patient is to contact us for any new concern or complaints. 9. [facility] psychiatric social worker supervisor to speak to patient's son Mr. lopez in regards to home care support, and lab pack chemist stress support resources/groups available. Education, patient instructed to go to ER immediately and or call Clinic if any skin lesion, pruritus, Shortness of Breath, Temp >/=100.4, fevers, chills, cardiac type chest pain, bleeding, excessive bruising, headaches, blurry vision , dizziness, abdominal pain, difficulty swallowing, and pain unrelieved by medication. TIME SPENT: 30 minutes 25 > minutes includes but not limited to discussion, counselling and co-ordination~ of care. Discussion with other health care providers, record review, review of lab work, diagnostic tests. Plan discussed extensively with patient. All the questions answered today. Thank you for the opportunity to be involved in the care of Mrs. Kali Roger. Billing Level: Return visit 4 SHARLA GENTILE, ONC Feb 26, 2018 12:16
[2018-03-02 11:39] LABS: PLATELET COUNT, AUTOMATED 500 K/uL (150-450)
[2018-03-02 14:31] VITALS: BP 158/85
[2018-03-04 13:27] VITALS: BP 169/74
--- NOTE | 2018-03-04 17:47 | ONCOLOGY FOLLOW UP NOTE ---
EVENT DATE: March 04, 2018 DIAGNOSES 1. Myelodysplastic syndrome with increased ringed sideroblasts. 2. 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 CHIEF COMPLAINT Patient is here today for her cycle number seven of VIDAZA for her myelodysplastic syndrome. ONCOLOGY HISTORY Patient is an 82-year-old, very nice lady who was admitted to the hospital and was found to have pancytopenia. Her CBC showed white count 1.9, hemoglobin 8.6 , hematocrit 26.4, platelets 172,000 and MCV 97.4. She had some hematological workup including serum iron which was normal at 90. TIBC was 216, iron saturation 41.7%. Vitamin B12 was more than 1500 and folate level was more than 22.3. Patient was referred for evaluation and management of pancytopenia. Patient had bone marrow aspiration biopsy done on August 04, 2017 and the diagnosis came back positive for myelodysplastic syndrome with no increased blasts. The blast count was only 1%. 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 Megakaryocytes showed patchy increase in some dysplastic features including hyperchromatic forms, abnormal small forms and abnormal large forms. FISH for MDS is still pending. 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 FISH for analysis was abnormal with 12d-. 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 Molecular profiling testing showed pathogenic alterations detected in the IDH2, JAK2, KRAS and SRSF2 genes. Patient started treatment with VIDAZA subcutaneously on August 14, 2017. HISTORY OF PRESENT ILLNESS Patient is here today for her cycle number seven of VIDAZA for her myelodysplastic syndrome. She is doing fine currently and she is totally asymptomatic. Her general condition is much better. Her energy level is much better. She has some complaints of itchiness after her local injection of VIDAZA. PAST MEDICAL HISTORY 1. History of stroke, 2001. 2. DVT, 2014. 3. Atrial fibrillation, 2010. 4. Hypertension, 2007. 5. Right renal infarct, 2008. 6. Overactive bladder, 2005. 7. Hyperparathyroidism with hypercalcemia. PAST SURGICAL HISTORY 1. Cataract extraction bilaterally. 2. Pacemaker placement, 2008. 3. Appendectomy, 2008. 4. Cholecystectomy, 1993. 5. Hysterectomy with oophorectomy. 6. Left breast biopsy in the past. FAMILY HISTORY Negative for cancer or blood diseases. SOCIAL HISTORY Patient is a . She had four sons and one daughter. 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 Denies any abuse of tobacco, alcohol or drugs. CURRENT MEDICATIONS 1. Atorvastatin 40 mg daily. 2. Spironolactone/hydrochlorothiazide 25/25 one tablet daily. 3. Xarelto 20 mg daily. 4. Vitamin D 1000 units daily. 5. Calcium carbonate and vitamin D3 chewable tablet one tablet daily. ALLERGIES No known drug allergies. REVIEW OF SYSTEMS CONSTITUTIONAL: No appetite or weight change. No fever, chills or sweating. No recent infection. HEENT: Ears: No tinnitus or hearing problem. Nose: No nasal discharge or epistaxis. Throat: No sore throat or mouth ulcers. Eyes: No diplopia or visual changes. RESPIRATORY: No shortness of breath. No cough, expectoration or hemoptysis. CARDIOVASCULAR: No chest pain, orthopnea, or paroxysmal nocturnal dyspnea (PND) . No edema. No palpitations. GASTROINTESTINAL: No nausea or vomiting. No diarrhea or constipation. No change in bowel movements. No heartburn or swallowing difficulties. No abdominal pain. No jaundice. No hematemesis, melena or rectal bleeding. GENITOURINARY: No hematuria or dysuria. MUSCULOSKELETAL: No pain in the muscles, joints or bones. NEUROLOGICAL: No tingling or numbness in the hands or feet. No headaches or convulsions. HEMATOLOGIC/LYMPHATIC: No bleeding or easy bruising. No weakness or fatigue. No enlarged lymph nodes. SKIN: No skin rash or lumps. PSYCHIATRIC: No anxiety or depression. PHYSICAL EXAMINATION GENERAL: Looks stable. Well-developed, well-nourished, and in no acute distress. VITAL SIGNS: Blood pressure 169/74, pulse 61 per minute, respirations 16 per minute, temperature 96.8, pulse ox 97% on room air. HEENT: Head: Atraumatic. No sinus tenderness to palpation. Eyes: No icterus or conjunctivitis. Mouth and throat: No oral thrush or mucositis. NECK: Supple. No cervical or supraclavicular lymphadenopathy. LUNGS: Clear to auscultation and percussion bilaterally. HEART: Regular rate and rhythm. No gallops, murmurs, clicks or rubs. ABDOMEN: Soft and lax. No tenderness. No hepatosplenomegaly. No masses. EXTREMITIES: Patient has bilateral edema. LYMPHATICS: No peripheral lymphadenopathy. NEUROLOGICAL: Conscious, alert and oriented times three. No focal motor or sensory deficits. PSYCHIATRIC: Mood and affect appear normal. SKIN: Bruising of the upper extremities is noted. DIAGNOSTIC DATA CBC showed a white count of 3000, hemoglobin 13.3, hematocrit 39.6, platelets 500,000. Chem panel is totally normal. ASSESSMENT 1. Myelodysplastic syndrome, proved by bone marrow aspiration biopsy done on August 04, 2017 which revealed myelodysplastic syndrome with 1% blasts and numerous ringed sideroblasts. There were multiple chromosomal abnormalities by cytogenic analysis. 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 Molecular profiling showed pathogenic alteration detected in IDH2, JAK2, KRAS and SRSF2 genes. Patient started treatment with VIDAZA on August 14, 2017. She received six cycles so far and she started also the seventh cycle. Patient became transfusion dependent after she started VIDAZA. Her current hemoglobin is 13.3, which was in the normal range. Because of the neutropenia with VIDAZA, the dose of VIDAZA is decreased by 20%, so the patient took the drug for four days instead of five days, with improvement of her white blood cell count. I am planning to continue treatment every four weeks for four days each time. Patient was offered central port placement and intravenous VIDAZA in the future, but she prefers to continue subcutaneous injection currently. 2. Pancytopenia due to myelodysplastic syndrome, getting much better. Per platelet count and hemoglobin both normalized, and her white count is a little bit low, but improved with decreasing the dose of VIDAZA by 20%. We will continue to monitor. PLAN 1. VIDAZA cycle number seven for four days instead of five. 2. CBC, chem panel to be checked weekly. 3. Patient to return in four weeks with CBC, chem panel. 4. Patient is to contact us for any new concern or complaints. [facility]
[2018-03-09 11:48] VITALS: BP 132/71
[2018-03-16 11:46] VITALS: BP 145/63
[2018-03-16 11:53] LABS: PLATELET COUNT, AUTOMATED 440 K/uL (150-450)
[2018-03-23 10:15] VITALS: BP 134/77
[2018-03-24 09:27] VITALS: BP 130/57
[2018-03-25 09:30] VITALS: BP 114/92
[2018-03-26 09:22] VITALS: BP 137/55
[2018-03-30 11:24] VITALS: BP 144/64
[2018-03-30 11:42] LABS: PLATELET COUNT, AUTOMATED 372 K/uL (150-450)
[2018-04-01 11:01] VITALS: BP 163/69
--- NOTE | 2018-04-01 16:41 | ONCOLOGY FOLLOW UP NOTE ---
EVENT DATE: April 01, 2018 DIAGNOSES 1. Myelodysplastic syndrome with increased ringed sideroblasts. 2. 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 CHIEF COMPLAINT Patient is here today for her cycle number eight of VIDAZA for myelodysplastic syndrome. ONCOLOGY HISTORY Patient is an 82-year-old, very nice lady who was admitted to the hospital and was found to have pancytopenia. Her CBC showed white count 1.9, hemoglobin 8.6, hematocrit 26.4, platelets 172,000 and MCV 97.4. She had some hematological workup including serum iron which was normal at 90. TIBC was 216, iron saturation 41.7%. Vitamin B12 was more than 1500 and folate level was more than 22.3. Patient was referred for evaluation and management of pancytopenia. Patient had bone marrow aspiration biopsy done on August 04, 2017 and the diagnosis came back positive for myelodysplastic syndrome with no increased blasts. The blast count was only 1%. 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 Megakaryocytes showed patchy increase in some dysplastic features including hyperchromatic forms, abnormal small forms and abnormal large forms. FISH for MDS is still pending. 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 FISH for analysis was abnormal with 12d-. 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 Molecular profiling testing showed pathogenic alterations detected in the IDH2, JAK2, KRAS and SRSF2 genes. Patient started treatment with VIDAZA subcutaneously on August 14, 2017. HISTORY OF PRESENT ILLNESS Patient is here today for her cycle number eight of VIDAZA for her myelodysplastic syndrome. She is doing fine currently. Apart from having easy bruising, the patient does not have any other problem. PAST MEDICAL HISTORY 1. History of stroke, 2001. 2. DVT, 2014. 3. Atrial fibrillation, 2010. 4. Hypertension, 2007. 5. Right renal infarct, 2008. 6. Overactive bladder, 2005. 7. Hyperparathyroidism with hypercalcemia. PAST SURGICAL HISTORY 1. Cataract extraction bilaterally. 2. Pacemaker placement, 2008. 3. Appendectomy, 2008. 4. Cholecystectomy, 1993. 5. Hysterectomy with oophorectomy. 6. Left breast biopsy in the past. FAMILY HISTORY Negative for cancer or blood diseases. SOCIAL HISTORY Patient is a . She had four sons and one daughter. 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 Denies any abuse of tobacco, alcohol or drugs. CURRENT MEDICATIONS 1. Atorvastatin 40 mg daily. 2. Spironolactone/hydrochlorothiazide 25/25 one tablet daily. 3. Xarelto 20 mg daily. 4. Vitamin D 1000 units daily. 5. Calcium carbonate and vitamin D3 chewable tablet one tablet daily. ALLERGIES No known drug allergies. REVIEW OF SYSTEMS CONSTITUTIONAL: No appetite or weight change. No fever, chills or sweating. No recent infection. HEENT: Ears: No tinnitus or hearing problem. Nose: No nasal discharge or epistaxis. Throat: No sore throat or mouth ulcers. Eyes: No diplopia or visual changes. RESPIRATORY: No shortness of breath. No cough, expectoration or hemoptysis. CARDIOVASCULAR: No chest pain, orthopnea, or paroxysmal nocturnal dyspnea (PND). No edema. No palpitations. GASTROINTESTINAL: No nausea or vomiting. No diarrhea or constipation. No change in bowel movements. No heartburn or swallowing difficulties. No abdominal pain. No jaundice. No hematemesis, melena or rectal bleeding. GENITOURINARY: No hematuria or dysuria. MUSCULOSKELETAL: No pain in the muscles, joints or bones. NEUROLOGICAL: No tingling or numbness in the hands or feet. No headaches or convulsions. HEMATOLOGIC/LYMPHATIC: No bleeding. She has easy bruising. No weakness or fatigue. No enlarged lymph nodes. SKIN: No skin rash or lumps. PSYCHIATRIC: No anxiety or depression. PHYSICAL EXAMINATION GENERAL: Looks stable. Well-developed, well-nourished, and in no acute distress. VITAL SIGNS: Blood pressure 163/69, pulse 60 per minute, respirations 16 per minute, temperature 97.2, pulse ox 97% on room air. HEENT: Head: Atraumatic. No sinus tenderness to palpation. Eyes: No icterus or conjunctivitis. Mouth and throat: No oral thrush or mucositis. NECK: Supple. No cervical or supraclavicular lymphadenopathy. LUNGS: Clear to auscultation and percussion bilaterally. HEART: Regular rate and rhythm. No gallops, murmurs, clicks or rubs. ABDOMEN: Soft and lax. No tenderness. No hepatosplenomegaly. No masses. EXTREMITIES: Patient has bilateral edema. LYMPHATICS: No peripheral lymphadenopathy. NEUROLOGICAL: Conscious, alert and oriented times three. No focal motor or sensory deficits. PSYCHIATRIC: Mood and affect appear normal. SKIN: Bruising of the upper extremities is noted. DIAGNOSTIC DATA CBC showed a white count of 2.4, hemoglobin 13.2, hematocrit 40.1, platelets 372,000. ANC is 1000. Chem panel totally normal except BUN 19. ASSESSMENT 1. Myelodysplastic syndrome, proved by bone marrow aspiration biopsy done on August 04, 2017 which revealed myelodysplastic syndrome with 1% blasts and numerous ringed sideroblasts. There were multiple chromosomal abnormalities by cytogenic analysis. 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 Molecular profiling showed pathogenic alteration detected in IDH2, JAK2, KRAS and SRSF2 genes. Patient started treatment with VIDAZA on August 14, 2017. She received six cycles so. Patient developed skin reaction to the subcutaneous injection of VIDAZA, and for this reason she had a central port placed to have the VIDAZA given intravenously. Her current hemoglobin is 13.2, and platelet count 372,000. Her white count is 2.4 and ANC is 1000. I am planning to proceed with her eighth cycle of VIDAZA intravenously for four days rather than five days. I will see her again in four weeks with CBC, chem panel, and I will check her CBC, chem panel every week with her treatment. 2. Pancytopenia due to myelodysplastic syndrome, got better. Her hemoglobin and platelet count normalized and she has mild leukopenia and neutropenia, and for this reason the dose of VIDAZA is decreased by 20% with some improvement. We will continue to monitor. PLAN 1. VIDAZA cycle number eight for four days intravenously. 2. CBC, chem panel to be checked weekly. 3. Patient to return in four weeks with CBC, chem panel. 4. Patient is to contact us for any new concern or complaints. MTDD
[2018-04-05 11:26] VITALS: BP 173/71
[2018-04-05] MEDS: HEPARIN FLSH (PORT) 500 UN/5ML IVP PRN (11:56)
[2018-04-05] MEDS: LIDOCAINE/SOD BICARB 8.4% SYR ID PRN (11:57)
[2018-04-05 11:58] LABS: PLATELET COUNT, AUTOMATED 209 K/uL (150-450)
[2018-04-13 11:48] LABS: PLATELET COUNT, AUTOMATED 536 K/uL (150-450)
[2018-04-13] MEDS: LIDOCAINE/SOD BICARB 8.4% SYR ID PRN (14:40)
[2018-04-13] MEDS: HEPARIN FLSH (PORT) 500 UN/5ML IVP PRN (14:40)
[2018-04-13 15:28] VITALS: BP 145/55
[2018-04-16 08:01] VITALS: BP 130/68
--- NOTE | 2018-04-16 19:55 | ONCOLOGY CONSULTATION ---
EVENT DATE: April 16, 2018 DIAGNOSES 1. Myelodysplastic syndrome with increased ringed sideroblasts. 2. 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 CHIEF COMPLAINT Patient is here today for followup of her myelodysplastic syndrome, on treatment with VIDAZA. This would be cycle #8. ONCOLOGY HISTORY Patient is an 82-year-old, very nice lady who was admitted to the hospital and was found to have pancytopenia. Her CBC showed white count 1.9, hemoglobin 8.6, hematocrit 26.4, platelets 172,000, and MCV 97.4. She had some hematological workup including serum iron which was normal at 90, TIBC was 216, iron saturation 41.7%. Vitamin B12 was more than 1500, and folate level was more than 22.3. Patient was referred for evaluation and management of pancytopenia. Patient had bone marrow aspiration biopsy done on August 04, 2017, and the diagnosis came back positive for myelodysplastic syndrome with no increased blasts. The blast count was only 1%. 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 Megakaryocytes showed patchy increase in some dysplastic features including hyperchromatic forms, abnormal small forms, and abnormal large forms. FISH for MDS is still pending. 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 FISH for analysis was abnormal with 12d-. 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 Molecular profiling testing showed pathogenic alterations detected in the IDH2, JAK2, KRAS, and SRSF2 genes. Patient started treatment with VIDAZA subcutaneously on August 14, 2017. HISTORY OF PRESENT ILLNESS Patient is here today for her cycle #8 of VIDAZA for her myelodysplastic syndrome. Patient is doing very well currently. Her blood count improved with VIDAZA. She is complaining only of easy bruising, but other than that, she is really doing very well. PAST MEDICAL HISTORY 1. History of stroke 2001. 2. DVT 2014. 3. Atrial fibrillation 2010. 4. Hypertension 2007. 5. Right renal infarct 2008. 6. Overactive bladder 2005. 7. Hyperparathyroidism with hypercalcemia. PAST SURGICAL HISTORY 1. Cataract extraction bilaterally. 2. Pacemaker placement 2008. 3. Appendectomy 2008. 4. Cholecystectomy 1993. 5. Hysterectomy with oophorectomy. 6. Left breast biopsy in the past. FAMILY HISTORY Negative for cancer or blood diseases. SOCIAL HISTORY Patient is a . She had four sons and one daughter. 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 Denies any abuse of tobacco, alcohol, or drugs. CURRENT MEDICATIONS 1. Atorvastatin 40 mg daily. 2. Spironolactone/hydrochlorothiazide 25/25 one tablet daily. 3. Xarelto 20 mg daily. 4. Vitamin D 1000 units daily. 5. Calcium carbonate and vitamin D3 chewable tablet, one tablet daily. ALLERGIES No known drug allergies. REVIEW OF SYSTEMS CONSTITUTIONAL: No appetite or weight change. No fever, chills, or sweating. No recent infection. HEENT: Ears: No tinnitus or hearing problem. Nose: No nasal discharge or epistaxis. Throat: No sore throat or mouth ulcers. Eyes: No diplopia or visual changes. RESPIRATORY: No shortness of breath. No cough, expectoration, or hemoptysis. CARDIOVASCULAR: No chest pain, orthopnea, or paroxysmal nocturnal dyspnea (PND). No edema. No palpitations. GASTROINTESTINAL: No nausea or vomiting. No diarrhea or constipation. No change in bowel movements. No heartburn or swallowing difficulties. No abdominal pain. No jaundice. No hematemesis, melena, or rectal bleeding. GENITOURINARY: No hematuria or dysuria. MUSCULOSKELETAL: No pain in the muscles, joints, or bones. NEUROLOGICAL: No tingling or numbness in the hands or feet. No headaches or convulsions. HEMATOLOGIC/LYMPHATIC: No bleeding. Patient has easy bruising. No weakness or fatigue. No enlarged lymph nodes. SKIN: No skin rash or lumps. PSYCHIATRIC: No anxiety or depression. PHYSICAL EXAMINATION GENERAL: Looks stable. Well developed, well nourished, and in no acute distress. VITAL SIGNS: Blood pressure 130/68, pulse 65 per minute, respirations 16 per minute, temperature 96.7, pulse ox 96% on room air. HEENT: Head: Atraumatic. No sinus tenderness to palpation. Eyes: No icterus or conjunctivitis. Mouth and throat: No oral thrush or mucositis. NECK: Supple. No cervical or supraclavicular lymphadenopathy. LUNGS: Clear to auscultation and percussion bilaterally. HEART: Regular rate and rhythm. No gallops, murmurs, clicks, or rubs. ABDOMEN: Soft and lax. No tenderness. No hepatosplenomegaly. No masses. EXTREMITIES: Patient has bilateral edema. LYMPHATICS: No peripheral lymphadenopathy. NEUROLOGICAL: Conscious, alert, and oriented times three. No focal motor or sensory deficits. PSYCHIATRIC: Mood and affect appear normal. SKIN: Bruising of the upper extremities is noted. DIAGNOSTIC DATA CBC showed white count 2.5, hemoglobin 13, hematocrit 40.1, platelets 536,000, and the ANC is 1.3. BUN is 22. ASSESSMENT 1. Myelodysplastic syndrome, proven by bone marrow aspiration biopsy done on August 04, 2017, which revealed myelodysplastic syndrome with 1% blasts and numerous ringed sideroblasts. There were multiple chromosomal abnormalities by cytogenic analysis. 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 Molecular profiling showed pathogenic alteration detected in IDH2, JAK2, KRAS, and SRSF2 genes. Patient started treatment with VIDAZA on August 14, 2017. She received seven cycles so far, and the patient developed a skin reaction to the subcutaneous injection of VIDAZA. For this reason, patient had a port placed, and she is going to have her first cycle through the intravenous line this time. Her current hemoglobin is 13 and the platelet count 536,000. Her white count is 2.5, and ANC is 1.3. I am planning to proceed with her eighth cycle of VIDAZA at this time. I am planning to give VIDAZA for four days instead of five days to keep her in a safe white count level. I am planning to see her again in one month with CBC, chemistry panel, and CBC and chemistry panel to be checked weekly. 2. Pancytopenia due to myelodysplastic syndrome, which got better with VIDAZA with normalization of her platelets and hemoglobin. Because of the neutropenia, her dose of VIDAZA decreased from five days to four days, meaning 20% dose reduction, and patient is doing better with that. PLAN 1. VIDAZA cycle number eight for four days. 2. CBC, chem panel to be checked weekly. 3. Patient to return in one month with CBC, chem panel. 4. Patient is to contact us for any new concerns or complaints. [facility]
[2018-04-20 12:00] VITALS: BP 117/46
[2018-04-20] MEDS: NS(*) 0.9% 100 ML BAG 100 ML IVPB PRN (12:53)
[2018-04-20] MEDS: HEPARIN FLSH (PORT) 500 UN/5ML IVP PRN ×2 (12:54→15:32)
[2018-04-20] MEDS: LIDOCAINE/SOD BICARB 8.4% SYR ID PRN (12:54)
[2018-04-21 09:31] VITALS: BP 129/49
[2018-04-21] MEDS: LIDOCAINE/SOD BICARB 8.4% SYR ID PRN (09:35)
[2018-04-21] MEDS: NS(*) 0.9% 100 ML BAG 100 ML IVPB PRN (09:36)
[2018-04-21] MEDS: HEPARIN FLSH (PORT) 500 UN/5ML IVP PRN (09:42)
[2018-04-22 09:26] VITALS: BP 146/58
[2018-04-22] MEDS: HEPARIN FLSH (PORT) 500 UN/5ML IVP PRN (09:29)
[2018-04-22] MEDS: LIDOCAINE/SOD BICARB 8.4% SYR ID PRN (09:29)
[2018-04-22] MEDS: NS(*) 0.9% 100 ML BAG 100 ML IVPB PRN (09:30)
[2018-04-22 10:08] VITALS: BP 106/84
[2018-04-23 09:26] VITALS: BP 168/61
[2018-04-23 10:10] VITALS: BP 127/58
[~2018-04-27] VITALS: Ht 160 cm; Wt 71.9 kg
[~2018-04-27] MED LIST changes: +ALTEPLASE RECOMB 2 MG VIAL IVP PRN; -AMLO2.5T74 PO; +AMLO2.5T76 PO; +AZACITIDINE IVPB ONE; +AZACITIDINE SC ONE; +DEXTROSE 5%(*) 100 ML BAG 100 ML IVPB PRN; +INFLUENZA VIRUS VAC 0.5ML SYR IM ONLY ONE; +NS 0.9% IVPB ONE; +NS(*) 0.9% 500 ML BAG 500 ML IV PRN; +ONDANSETRON 4 MG ODT TABDP SL PRN; +WATER FOR INJ,STERILE 20 ML IVP PRN
[2018-04-27 11:24] VITALS: BP 161/73
[2018-04-27] MEDS: HEPARIN FLSH (PORT) 500 UN/5ML IVP PRN (11:34)
[2018-04-27] MEDS: LIDOCAINE/SOD BICARB 8.4% SYR ID PRN (11:34)
[2018-04-27 11:39] LABS: PLATELET COUNT, AUTOMATED 434 K/uL (150-450)
== END ==
LOC: ONC 01-27 07:36 → SPU 02-02 11:23 → ONC 02-04 14:18 → SPU 02-09 11:00 → ONC 02-23 09:20 → SPU 03-09 11:14 → ONC 03-23 10:05 → SPU 03-30 11:21 → ONC 04-01 10:51 → SPU 04-05 11:15 → ONC 04-16 08:00 → SPU 11:21
PROVIDERS: ATTEND Internal Medicine Hematology
DX: D46.9 Myelodysplastic syndrome, unspecified (principal); D61.818 Other pancytopenia; Z79.01 Long term (current) use of anticoagulants; Z79.899 Other long term (current) drug therapy; Z23 Encounter for immunization
CPT/HCPCS: 36415; 36591; 83615; 84100; 84550; 85025; 85027; 90471; 96365; 96372; 96374; 96401; G0463; J1642; J7050; J9025; Q2037; 82040; 82247; 82310; 82374; 82435; 82565; 82947; 84075; 84132; 84155; 84295; 84450; 84460; 84520; 90674; 99212

== ENCOUNTER 2018-07-27 09:21 | Outpatient (RCR) | payer MEDICARE, OTHER ==
[2017-07-20 16:11] VITALS: Ht 160 cm; Wt 75.4 kg
[2018-05-04 11:38] VITALS: BP 158/63
[2018-05-04] MEDS: LIDOCAINE/SOD BICARB 8.4% SYR ID PRN (11:45)
[2018-05-04] MEDS: HEPARIN FLSH (PORT) 500 UN/5ML IVP PRN (11:45)
[2018-05-04 11:55] LABS: PLATELET COUNT, AUTOMATED 280 K/uL (150-450)
[2018-05-11] MEDS: HEPARIN FLSH (PORT) 500 UN/5ML IVP PRN (10:32)
[2018-05-11] MEDS: LIDOCAINE/SOD BICARB 8.4% SYR ID PRN (10:32)
[2018-05-11 10:48] LABS: PLATELET COUNT, AUTOMATED 673 K/uL (150-450)
[2018-05-18 09:45] VITALS: BP 152/59
[2018-05-18] MEDS: LIDOCAINE/SOD BICARB 8.4% SYR ID PRN (11:05)
[2018-05-18] MEDS: HEPARIN FLSH (PORT) 500 UN/5ML IVP PRN (11:05)
[2018-05-21 09:58] VITALS: BP 146/68
--- NOTE | 2018-05-21 13:06 | [facility] ONCOLOGY NOTE ---
EVENT DATE: May 21, 2018 DIAGNOSES 1. Myelodysplastic syndrome with increased ringed sideroblasts. 2. 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 CHIEF COMPLAINT Patient is here today for followup of her myelodysplastic syndrome, on treatment with VIDAZA. This will be cycle #9. ONCOLOGY HISTORY Patient is an 82-year-old, very nice lady who was admitted to the hospital and was found to have pancytopenia. Her CBC showed white count 1.9, hemoglobin 8.6, hematocrit 26.4, platelets 172,000, and MCV 97.4. She had some hematological workup including serum iron which was normal at 90, TIBC was 216, iron saturation 41.7%. Vitamin B12 was more than 1500, and folate level was more than 22.3. Patient was referred for evaluation and management of pancytopenia. Patient had bone marrow aspiration biopsy done on August 04, 2017, and the diagnosis came back positive for myelodysplastic syndrome with no increased blasts. The blast count was only 1%. 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 Megakaryocytes showed patchy increase in some dysplastic features including hyperchromatic forms, abnormal small forms, and abnormal large forms. FISH for MDS is still pending. 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 FISH for analysis was abnormal with 12d-. 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 Molecular profiling testing showed pathogenic alterations detected in the IDH2, JAK2, KRAS, and SRSF2 genes. Patient started treatment with VIDAZA subcutaneously on August 14, 2017. HISTORY OF PRESENT ILLNESS Patient is here today for her cycle #9 of VIDAZA for her myelodysplastic syndrome. She is doing fine currently except for mild fatigue and easy bruising but other than that she is doing fine. She is also on Xarelto. PAST MEDICAL HISTORY 1. History of stroke 2001. 2. DVT 2014. 3. Atrial fibrillation 2010. 4. Hypertension 2007. 5. Right renal infarct 2008. 6. Overactive bladder 2005. 7. Hyperparathyroidism with hypercalcemia. PAST SURGICAL HISTORY 1. Cataract extraction bilaterally. 2. Pacemaker placement 2008. 3. Appendectomy 2008. 4. Cholecystectomy 1993. 5. Hysterectomy with oophorectomy. 6. Left breast biopsy in the past. FAMILY HISTORY Negative for cancer or blood diseases. SOCIAL HISTORY Patient is a . She had four sons and one daughter. 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 Denies any abuse of tobacco, alcohol, or drugs. CURRENT MEDICATIONS 1. Atorvastatin 40 mg daily. 2. Spironolactone/hydrochlorothiazide 25/25 one tablet daily. 3. Xarelto 20 mg daily. 4. Vitamin D 1000 units daily. 5. Calcium carbonate and vitamin D3 chewable tablet, one tablet daily. ALLERGIES No known drug allergies. REVIEW OF SYSTEMS CONSTITUTIONAL: No appetite or weight change. No fever, chills, or sweating. No recent infection. HEENT: Ears: No tinnitus or hearing problem. Nose: No nasal discharge or epistaxis. Throat: No sore throat or mouth ulcers. Eyes: No diplopia or visual changes. RESPIRATORY: No shortness of breath. No cough, expectoration, or hemoptysis. CARDIOVASCULAR: No chest pain, orthopnea, or paroxysmal nocturnal dyspnea (PND). No edema. No palpitations. GASTROINTESTINAL: No nausea or vomiting. No diarrhea or constipation. No change in bowel movements. No heartburn or swallowing difficulties. No abdominal pain. No jaundice. No hematemesis, melena, or rectal bleeding. GENITOURINARY: No hematuria or dysuria. MUSCULOSKELETAL: No pain in the muscles, joints, or bones. NEUROLOGICAL: No tingling or numbness in the hands or feet. No headaches or convulsions. HEMATOLOGIC/LYMPHATIC: Patient bruises easily. She is weak, tired and fatigued. SKIN: No skin rash or lumps. PSYCHIATRIC: No anxiety or depression. PHYSICAL EXAMINATION GENERAL: Looks stable. Well developed, well nourished, and in no acute distress. VITAL SIGNS: Blood pressure 146/68, pulse 60 per minute, respirations 16 per minute, temperature 96.8, pulse ox 96% on room air. HEENT: Head: Atraumatic. No sinus tenderness to palpation. Eyes: No icterus or conjunctivitis. Mouth and throat: No oral thrush or mucositis. NECK: Supple. No cervical or supraclavicular lymphadenopathy. LUNGS: Clear to auscultation and percussion bilaterally. HEART: Regular rate and rhythm. No gallops, murmurs, clicks, or rubs. ABDOMEN: Soft and lax. No tenderness. No hepatosplenomegaly. No masses. EXTREMITIES: Patient has bilateral edema. LYMPHATICS: No peripheral lymphadenopathy. NEUROLOGICAL: Conscious, alert, and oriented times three. No focal motor or sensory deficits. PSYCHIATRIC: Mood and affect appear normal. SKIN: Bruising of the upper extremities is noted. DIAGNOSTIC DATA CBC showed white count 2.4, hemoglobin 13.3, hematocrit 40.8, platelets 1,076,000. Chem panel totally normal except BUN 26. LDH normal at 519. Uric acid normal at ASSESSMENT 1. Myelodysplastic syndrome proven by bone marrow aspiration biopsy done on August 04, 2017, which revealed myelodysplastic syndrome with 1% blasts and numerous ringed sideroblasts. There were multiple chromosomal abnormalities by cytogenic analysis. 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 Molecular profiling showed pathogenic alteration detected in IDH2, JAK2, KRAS, and SRSF2 genes. Patient started treatment with VIDAZA on August 14, 2017. She received eight cycles so far and patient developed a skin reaction to the subcutaneous injection of VIDAZA so she started treatment with intravenous VIDAZA. Her platelet count showed marked rise with VIDAZA treatment and currently it is 1,076,000 so the treatment was held last week. Her current hemoglobin is very good at 15.3 g/dL and the current white count is 2.4. I am planning to check her CBC on Thursday, May 25, 2018 and if the platelet count is above or equal to 700,000 I am planning to hold the treatment for another week but if the platelet count is below 700,000 I am planning to resume the treatment with VIDAZA cycle #9 but with decreased dose so I am planning to give her three days instead of four days currently. I will see her again in four weeks from now with CBC, chem panel and I will check CBC and chem panel on a weekly basis. Patient showed a very marked response with her VIDAZA treatment and she became transfusion independent. 2. Thrombocytosis, most probably due to VIDAZA treatment. Current platelet count is 1,076,000. I am planning to hold her treatment until the platelet count is below 700 and then I will decrease the dose of VIDAZA to three days instead of four days of treatment. PLAN 1. Continue followup. 2. Check CBC on May 25, 2018. 3. Resume VIDAZA with decreased dose, three days instead of four, if the platelet count is below 700,000 but if the platelet count is above 700,000 I will keep holding the treatment for another week. 4. CBC and chem panel to be checked weekly. 5. Patient to return in four weeks with CBC and chem panel. 6. Patient is to contact us for any new concerns or complaints. MTDD
[2018-05-25] MEDS: NS(*) 0.9% 100 ML BAG 100 ML IVPB PRN (09:41)
[2018-05-25] MEDS: LIDOCAINE/SOD BICARB 8.4% SYR ID PRN (09:41)
[2018-05-25 09:42] VITALS: BP 106/63
[2018-05-25] MEDS: AZACITIDINE IVPB PRN (10:56)
[2018-05-25] MEDS: NS 0.9% IVPB PRN (10:56)
[2018-05-25] MEDS: HEPARIN FLSH (PORT) 500 UN/5ML IVP PRN (11:15)
[2018-05-25 11:20] VITALS: BP 102/52
[2018-05-26 09:33] VITALS: BP 108/44
[2018-05-26] MEDS: NS(*) 0.9% 100 ML BAG 100 ML IVPB PRN (09:35)
[2018-05-26] MEDS: LIDOCAINE/SOD BICARB 8.4% SYR ID PRN (09:35)
[2018-05-26] MEDS: NS 0.9% IVPB PRN (09:39)
[2018-05-26] MEDS: AZACITIDINE IVPB PRN (09:39)
[2018-05-26] MEDS: HEPARIN FLSH (PORT) 500 UN/5ML IVP PRN (09:41)
[2018-05-27] MEDS: LIDOCAINE/SOD BICARB 8.4% SYR ID PRN (09:41)
[2018-05-27] MEDS: HEPARIN FLSH (PORT) 500 UN/5ML IVP PRN (09:41)
[2018-05-27] MEDS: NS(*) 0.9% 100 ML BAG 100 ML IVPB PRN (09:42)
[2018-05-27 09:50] VITALS: BP 120/44
[2018-06-01 11:37] VITALS: BP 115/59
[2018-06-01] MEDS: LIDOCAINE/SOD BICARB 8.4% SYR ID PRN (11:37)
[2018-06-01] MEDS: HEPARIN FLSH (PORT) 500 UN/5ML IVP PRN (11:37)
[2018-06-01 11:51] LABS: PLATELET COUNT, AUTOMATED 443 K/uL (150-450)
[2018-06-08] MEDS: LIDOCAINE/SOD BICARB 8.4% SYR ID PRN (11:30)
[2018-06-08] MEDS: HEPARIN FLSH (PORT) 500 UN/5ML IVP PRN (11:30)
[2018-06-08 11:41] LABS: PLATELET COUNT, AUTOMATED 357 K/uL (150-450)
[2018-06-15] MEDS: LIDOCAINE/SOD BICARB 8.4% SYR ID PRN (11:51)
[2018-06-15] MEDS: HEPARIN FLSH (PORT) 500 UN/5ML IVP PRN (11:51)
[2018-06-15 11:59] VITALS: BP 122/62
[2018-06-15 13:04] LABS: PLATELET COUNT, AUTOMATED 576 K/uL (150-450)
[2018-06-22 11:35] VITALS: BP 129/68
[2018-06-22] MEDS: NS(*) 0.9% 500 ML BAG 500 ML IV PRN (11:44)
[2018-06-22] MEDS: HEPARIN FLSH (PORT) 500 UN/5ML IVP PRN (11:44)
[2018-06-22] MEDS: LIDOCAINE/SOD BICARB 8.4% SYR ID PRN (11:44)
--- NOTE | 2018-06-22 22:20 | ONCOLOGY FOLLOW UP NOTE ---
EVENT DATE: June 22, 2018 CHIEF COMPLAINT Followup for myelodysplastic syndrome. HISTORY OF PRESENT ILLNESS Patient is an 83-year-old female who is seen today in followup for myelodysplastic syndrome. She has been receiving VIDAZA. This was initially given subcutaneously, but she developed skin reaction with significant pruritus. This treatment was then switched to IV, and she presents for consideration of her next cycle. Overall, she feels well. She has some minimal pruritus on day 3, but is managing this with occasional Benadryl. She does bruise easily. She notes increased urinary frequency, likely due to diuretic therapy. Otherwise, she denies any new complaints. ONCOLOGY HISTORY Patient is an 82-year-old female who was admitted to the hospital and was found to have pancytopenia. Her CBC showed white count 1.9, hemoglobin 8.6, hematocrit 26.4, platelets 172,000, and MCV 97.4. She had some hematological workup including serum iron which was normal at 90, TIBC was 216, iron saturation 41.7%. Vitamin B12 was more than 1500, and folate level was more than 22.3. Bone marrow aspiration biopsy done on August 04, 2017 was positive for myelodysplastic syndrome with no increased blasts. The blast count was only 1%. 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 Megakaryocytes showed patchy increase in some dysplastic features including hyperchromatic forms, abnormal small forms, and abnormal large forms. 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 FISH for analysis was abnormal with 12d-. 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 Molecular profiling testing showed pathogenic alterations detected in the IDH2, JAK2, KRAS, and SRSF2 genes. Patient started treatment with VIDAZA subcutaneously on August 14, 2017. Developed skin reaction to the subcutaneous injection of VIDAZA after eight cycles. Switched to IV VIDAZA after that. PAST MEDICAL HISTORY 1. History of stroke 2001. 2. DVT 2014. 3. Atrial fibrillation 2010. 4. Hypertension 2007. 5. Right renal infarct 2008. 6. Overactive bladder 2005. 7. Hyperparathyroidism with hypercalcemia. PAST SURGICAL HISTORY 1. Cataract extraction bilaterally. 2. Pacemaker placement 2008. 3. Appendectomy 2008. 4. Cholecystectomy 1993. 5. Hysterectomy with oophorectomy. 6. Left breast biopsy in the past. FAMILY HISTORY Negative for cancer or blood diseases. SOCIAL HISTORY Patient is a . She has four sons and one daughter. 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 Denies any abuse of tobacco, alcohol, or drugs. CURRENT MEDICATIONS 1. Atorvastatin 40 mg daily. 2. Spironolactone/hydrochlorothiazide 25/25 one tablet daily. 3. Xarelto 20 mg daily. 4. Vitamin D 1000 units daily. 5. Calcium carbonate and vitamin D3 chewable tablet, one tablet daily. ALLERGIES No known drug allergies. REVIEW OF SYSTEMS A 12-point review of systems is performed and is negative except as stated above. PHYSICAL EXAMINATION VITAL SIGNS: Weight 71.3 kg. BP 129/68, P 60, R 16, temp 98, O2 sat 94%. GENERAL: Patient is a well-developed, well-nourished female in no acute distress. HEAD: Normocephalic, atraumatic. EYES: Sclerae anicteric. MOUTH: Moist mucous membranes. No lesions. LUNGS: Clear bilaterally. CARDIOVASCULAR: Heart rate regular, 60 per minute, without murmur. EXTREMITIES: Mild bilateral pretibial edema, chronic. NEUROLOGIC: Nonfocal. SKIN: Bruising noted on upper extremities, especially hands. LABORATORY CBC today showed WBC of 2.7, ANC of 1.2, hemoglobin 12.9, hematocrit 39.7, platelets 1,048,000. CMP is within normal limits. IMPRESSION AND PLAN The patient is an 83-year-old female diagnosed with myelodysplastic syndrome by bone marrow biopsy on 08/04/17. This showed 1% blasts and numerous ringed sideroblasts. There were multiple chromosomal abnormalities by cytogenetic analysis. 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 Molecular profiling showed pathogenic alteration detected in IDH2, JAK2, KRAS, and SRSF2 genes. Began treatment with subcutaneous VIDAZA on 08/14/17. Switched to intravenous VIDAZA after eight cycles due to skin reaction. 1. Myelodysplastic syndrome. Patient presents for her next cycle of VIDAZA. However, as her platelet count is over 700,000, will hold VIDAZA this week. She will be reevaluated next week for reinitiation of VIDAZA if platelet count is below 700,000. She will receive this on Thursday, Thursday, and . 2. Thrombocytosis. Likely due to the VIDAZA treatment. 3. Leukopenia. Ongoing, but slowly improving. ANC today is 1.2. We reviewed neutropenia precautions. 4. Follow up weekly for labs and VIDAZA. 5. Follow up with Dr. Carranza in one month for continued care. CBC and chemistry panel will be done at that time. MTDD
[2018-06-29 09:28] VITALS: BP 135/57
[2018-06-29] MEDS: NS(*) 0.9% 100 ML BAG 100 ML IVPB PRN (10:31)
[2018-06-29] MEDS: HEPARIN FLSH (PORT) 500 UN/5ML IVP PRN (10:31)
[2018-06-29] MEDS: LIDOCAINE/SOD BICARB 8.4% SYR ID PRN (10:31)
[2018-06-29 10:58] VITALS: BP 130/55
--- NOTE | 2018-06-30 03:26 | ONCOLOGY FOLLOW UP NOTE ---
EVENT DATE: June 29, 2018 CHIEF COMPLAINT Followup for myelodysplastic syndrome. HISTORY OF PRESENT ILLNESS Patient is an 83-year-old female who is seen today in followup. She was due to receive VIDAZA last week, but platelet count was 1,048,000. VIDAZA was held and she presents today for reassessment. Overall she is doing well. She does have chronic lower-extremity swelling but continues on Lasix. She notes some urinary frequency due to this. She manages her pruritus with Benadryl, which generally occurs on day 3 after Vidaza. She denies any other complaints. ONCOLOGY HISTORY Patient is an 82-year-old female who was admitted to the hospital and was found to have pancytopenia. Her CBC showed white count 1.9, hemoglobin 8.6, hematocrit 26.4, platelets 172,000, and MCV 97.4. She had some hematological workup including serum iron which was normal at 90, TIBC was 216, iron saturation 41.7%. Vitamin B12 was more than 1500, and folate level was more than 22.3. Bone marrow aspiration biopsy done on August 04, 2017 was positive for myelodysplastic syndrome with no increased blasts. The blast count was only 1%. 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 Megakaryocytes showed patchy increase in some dysplastic features including hyperchromatic forms, abnormal small forms, and abnormal large forms. 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 FISH for analysis was abnormal with 12d-. 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 Molecular profiling testing showed pathogenic alterations detected in the IDH2, JAK2, KRAS, and SRSF2 genes. Patient started treatment with VIDAZA subcutaneously on August 14, 2017. Developed skin reaction to the subcutaneous injection of VIDAZA after eight cycles. Switched to IV VIDAZA after that. PAST MEDICAL HISTORY 1. History of stroke 2001. 2. DVT 2014. 3. Atrial fibrillation 2010. 4. Hypertension 2007. 5. Right renal infarct 2008. 6. Overactive bladder 2005. 7. Hyperparathyroidism with hypercalcemia. PAST SURGICAL HISTORY 1. Cataract extraction bilaterally. 2. Pacemaker placement 2008. 3. Appendectomy 2008. 4. Cholecystectomy 1993. 5. Hysterectomy with oophorectomy. 6. Left breast biopsy in the past. FAMILY HISTORY Negative for cancer or blood diseases. SOCIAL HISTORY Patient is a . She has four sons and one daughter. 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 Denies any abuse of tobacco, alcohol, or drugs. CURRENT MEDICATIONS 1. Atorvastatin 40 mg daily. 2. Lisinopril 5 mg daily. 3. Xarelto 20 mg daily. 4. Vitamin D 1000 units daily. 5. Calcium carbonate and vitamin D3 chewable tablet, one tablet daily. 6. Lasix 40 mg daily. 7. KCl 20 mEq daily. ALLERGIES No known drug allergies. REVIEW OF SYSTEMS A 12-point review of systems is performed and is negative except as stated above. PHYSICAL EXAMINATION VITAL SIGNS: Weight 72.5 kg. BP 135/57, P 60, R 16, temp 97.7, O2 sat 94%. GENERAL: Patient is a well-developed, well-nourished female in no acute distress. Posture is kyphotic. HEAD: Normocephalic, atraumatic. EYES: Sclerae anicteric. MOUTH: Moist mucous membranes. LUNGS: Clear bilaterally. CARDIOVASCULAR: Heart rate regular, 60 per minute, without murmur, S3 or S4. EXTREMITIES: Bilateral pretibial edema, chronic. NEUROLOGIC: Nonfocal. SKIN: Bruising noted on hands. LABORATORY CBC today reveals a WBC of 2.8, ANC of 1.3, hemoglobin 13.1, hematocrit 39.8, platelets 507,000. CMP is within normal limits except for a mildly elevated calcium of 10.3 and a BUN of 28. IMPRESSION AND PLAN The patient is an 83-year-old female diagnosed with myelodysplastic syndrome by bone marrow biopsy on 08/04/17. This showed 1% blasts and numerous ringed sideroblasts. There were multiple chromosomal abnormalities by cytogenetic analysis. 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 Molecular profiling showed pathogenic alteration detected in IDH2, JAK2, KRAS, and SRSF2 genes. Began treatment with subcutaneous VIDAZA on 08/14/17. Switched to intravenous VIDAZA after eight cycles due to skin reaction. 1. Myelodysplastic syndrome. Patient presents for VIDAZA today. This was held last week due to a platelet count greater than 700,000. As platelet count today is 507,000, she will be treated today, Thursday, and . 2. Thrombocytosis, markedly improved. It is felt this is likely due to the VIDAZA treatment. Will check peripheral smear. 3. Leukopenia. Ongoing but stable. She has had no intercurrent infections. We received neutropenia precautions. 4. Follow up on 07/23/[address] Carranza for continued care. CBC and CMP will be done at that time. [facility]
[2018-06-30 09:58] VITALS: BP 146/67
[2018-06-30] MEDS: HEPARIN FLSH (PORT) 500 UN/5ML IVP PRN (10:04)
[2018-06-30] MEDS: LIDOCAINE/SOD BICARB 8.4% SYR ID PRN (10:04)
[2018-06-30] MEDS: NS(*) 0.9% 100 ML BAG 100 ML IVPB PRN (10:04)
[2018-07-01 09:25] VITALS: BP 135/52
[2018-07-01] MEDS: LIDOCAINE/SOD BICARB 8.4% SYR ID PRN (09:30)
[2018-07-01] MEDS: NS(*) 0.9% 100 ML BAG 100 ML IVPB PRN ×2 (09:30→09:34)
[2018-07-01] MEDS: HEPARIN FLSH (PORT) 500 UN/5ML IVP PRN ×2 (09:31→09:34)
[2018-07-01 10:07] VITALS: BP 109/68
[2018-07-06 09:48] VITALS: BP 130/55
[2018-07-06 09:49] LABS: PLATELET COUNT, AUTOMATED 469 K/uL (150-450)
[2018-07-14 12:01] LABS: PLATELET COUNT, AUTOMATED 411 K/uL (150-450)
[2018-07-21 11:50] VITALS: BP 137/75
[2018-07-21 11:58] LABS: PLATELET COUNT, AUTOMATED 823 K/uL (150-450)
[~2018-07-27] VITALS: Ht 160 cm; Wt 75.4 kg
[~2018-07-27 09:21] MED LIST changes: -AMLO2.5T76 PO; +AMLO2.5T78 PO; +AZACITIDINE IVPB PRN; -AZACITIDINE SC ONE; -INFLUENZA VIRUS VAC 0.5ML SYR IM ONLY ONE; +LISI5TAB25 PO; +NS 0.9% IVPB PRN; -NS(*) 0.9% 500 ML BAG 500 ML IV PRN
[2018-07-27 09:24] VITALS: BP 141/69
[2018-07-27 10:00] LABS: PLATELET COUNT, AUTOMATED 1135 K/uL (150-450)
[2018-07-27] MEDS: NS(*) 0.9% 500 ML BAG 500 ML IV PRN (10:14)
[2018-07-27] MEDS: LIDOCAINE/SOD BICARB 8.4% SYR ID PRN (10:14)
[2018-07-27] MEDS: HEPARIN FLSH (PORT) 500 UN/5ML IVP PRN (10:14)
--- NOTE | 2018-07-27 10:55 | NUR ---
SW completed follow up HADS form. Pt scored D:5, A:4. Both in normal range.
== END 2018-08-01 ==
LOC: ONC 09:21
PROVIDERS: ATTEND Internal Medicine Hematology
DX: D46.9 Myelodysplastic syndrome, unspecified (principal); D69.6 Thrombocytopenia, unspecified; R60.0 Localized edema; L29.9 Pruritus, unspecified
CPT/HCPCS: 36415; 36591; 83615; 84100; 84550; 85025; 85027; 96360; 96365; 96374; G0463; J1642; J7040; J7050; J9025; 82040; 82247; 82310; 82374; 82435; 82565; 82947; 84075; 84132; 84155; 84295; 84450; 84460; 84520; 99212

== ENCOUNTER 2018-10-28 09:24 | Outpatient (RCR) | payer MEDICARE, OTHER ==
[2017-07-20 16:11] VITALS: Ht 160 cm; Wt 76.5 kg
[2018-08-03] MEDS: LIDOCAINE/SOD BICARB 8.4% SYR ID PRN (09:44)
[2018-08-03] MEDS: NS(*) 0.9% 100 ML BAG 100 ML IVPB PRN (09:45)
[2018-08-03] MEDS: HEPARIN FLSH (PORT) 500 UN/5ML IVP PRN (09:46)
[2018-08-03 09:48] VITALS: BP 127/60
[2018-08-03 09:56] LABS: PLATELET COUNT, AUTOMATED 484 K/uL (150-450)
[2018-08-04 09:28] VITALS: BP 107/66
[2018-08-04] MEDS: HEPARIN FLSH (PORT) 500 UN/5ML IVP PRN (09:51)
[2018-08-04 10:16] VITALS: BP 114/58
[2018-08-05 09:37] VITALS: BP 142/59
[2018-08-05] MEDS: LIDOCAINE/SOD BICARB 8.4% SYR ID PRN (09:40)
[2018-08-05] MEDS: HEPARIN FLSH (PORT) 500 UN/5ML IVP PRN (09:40)
[2018-08-05] MEDS: NS(*) 0.9% 100 ML BAG 100 ML IVPB PRN (09:41)
[2018-08-05 10:01] VITALS: BP 140/58
--- NOTE | 2018-08-05 17:46 | ONCOLOGY FOLLOW UP NOTE ---
EVENT DATE: August 03, 2018 CHIEF COMPLAINT Followup for myelodysplastic syndrome. HISTORY OF PRESENT ILLNESS Patient is an 83-year-old female who was seen today for consideration of ongoing VIDAZA. For the past three cycles, her platelet count was >1,000,000, and treatment was held. A week later, platelet count decreased again to <700,000, and she received treatment. She does have some fatigue, but denies any other significant complaints. She has long-standing lower extremity edema and uses Lasix with potassium supplements for this. She has had no evidence of infection. She complains of pruritus which generally occurs on day 3 after treatment with VIDAZA and controls this with Benadryl. She denies any other new complaints. ONCOLOGY HISTORY Patient is an 83-year-old female who was admitted to the hospital and was found to have pancytopenia. Her CBC showed white count 1.9, hemoglobin 8.6, hematocrit 26.4, platelets 172,000, and MCV 97.4. She had some hematological workup including serum iron which was normal at 90, TIBC was 216, iron saturation 41.7%. Vitamin B12 was more than 1500, and folate level was more than 22.3. Bone marrow aspiration biopsy done on August 04, 2017, was positive for myelodysplastic syndrome with no increased blasts. The blast count was only 1%. 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 Megakaryocytes showed patchy increase in some dysplastic features including hyperchromatic forms, abnormal small forms, and abnormal large forms. 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 FISH for analysis was abnormal with 12d-. 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 Molecular profiling testing showed pathogenic alterations detected in the IDH2, JAK2, KRAS, and SRSF2 genes. Patient started treatment with VIDAZA subcutaneously on August 14, 2017. Developed skin reaction to the subcutaneous injection of VIDAZA after eight cycles. Switched to IV VIDAZA after that. PAST MEDICAL HISTORY 1. History of stroke 2001. 2. DVT 2014. 3. Atrial fibrillation 2010. 4. Hypertension 2007. 5. Right renal infarct 2008. 6. Overactive bladder 2005. 7. Hyperparathyroidism with hypercalcemia. PAST SURGICAL HISTORY 1. Cataract extraction bilaterally. 2. Pacemaker placement 2008. 3. Appendectomy 2008. 4. Cholecystectomy 1993. 5. Hysterectomy with oophorectomy. 6. Left breast biopsy in the past. FAMILY HISTORY Negative for cancer or blood diseases. SOCIAL HISTORY Patient is a . She has four sons and one daughter. 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 Denies any abuse of tobacco, alcohol, or drugs. CURRENT MEDICATIONS 1. Atorvastatin 40 mg daily. 2. Lisinopril 5 mg daily. 3. Xarelto 20 mg daily. 4. Vitamin D 1000 units daily. 5. Calcium carbonate and vitamin D3 chewable tablet, one tablet daily. 6. Lasix 40 mg daily. 7. KCl 20 mEq daily. ALLERGIES No known drug allergies. REVIEW OF SYSTEMS A 12-point review of systems is performed and is negative except as stated above. PHYSICAL EXAMINATION VITAL SIGNS: Weight 74.7 kg. BP 127/60, P 59, R 18, temp 98, O2 sat 96%. GENERAL: Patient is a well-developed, well-nourished female in no acute distress. HEAD: Normocephalic, atraumatic. EYES: Sclerae anicteric. MOUTH: Moist mucous membranes. NECK: Supple. No palpable adenopathy. LUNGS: Clear bilaterally. CARDIOVASCULAR: Heart rate regular, 59 per minute, without murmur, S3, or S4. EXTREMITIES: Bilateral pretibial edema, chronic. NEUROLOGIC: Nonfocal. SKIN: Bruising noted on hands and forearms. LABORATORY CBC today reveals a WBC of 2.0, ANC of 0.6, hemoglobin 12.0, hematocrit 37.5, platelets 484,000. CMP is within normal limits except for a slightly elevated BUN of 23 and decreased albumin of 3.4. IMPRESSION AND PLAN The patient is an 83-year-old female diagnosed with myelodysplastic syndrome by bone marrow biopsy on 08/04/17. This showed 1% blasts and numerous ringed sideroblasts. There were multiple chromosomal abnormalities by cytogenetic analysis. 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 Molecular profiling showed pathogenic alteration detected in IDH2, JAK2, KRAS, and SRSF2 genes. Began treatment with subcutaneous VIDAZA on 08/14/17. Switched to intravenous VIDAZA after eight cycles due to skin reaction. 1. Myelodysplastic syndrome. Patient presents for her next cycle of VIDAZA. This has been delayed for the past three cycles by one week due to platelet count >700,000. I reviewed this with Dr. Carranza, and recommendation is to change her protocol for VIDAZA to be given on an every five-week basis. Patient and her son are in agreement. 2. Thrombocytosis. Today, platelet count has normalized at 484,000. Will continue current treatment. 3. Neutropenia. Noted to have more neutropenia with an ANC of 0.6. We reviewed neutropenia precautions. She will notify us if she develops fever or signs of infection. She will be seen again in followup in one week for reassessment. 4. Lower extremity edema, chronic. She manages this with Lasix with potassium supplement. 5. Follow up with Dr. Carranza on 09/02/18. 6. Cycle #12 of VIDAZA on 09/07/18. MTDD
[2018-08-11 11:22] VITALS: BP 162/69
[2018-08-11] MEDS: HEPARIN FLSH (PORT) 500 UN/5ML IVP PRN (11:38)
[2018-08-11] MEDS: LIDOCAINE/SOD BICARB 8.4% SYR ID PRN (11:38)
[2018-08-11 11:53] LABS: PLATELET COUNT, AUTOMATED 483 K/uL (150-450)
--- NOTE | 2018-08-11 16:10 | ONCOLOGY FOLLOW UP NOTE ---
EVENT DATE: August 11, 2018 CHIEF COMPLAINT Followup for myelodysplastic syndrome. HISTORY OF PRESENT ILLNESS The patient is an 83-year-old female who is seen today one week after receiving VIDAZA. Dosing has been changed to every five weeks as opposed to every four weeks because at four weeks, her platelet count was always >1,000,000. Treatment has been held, but platelet count then decreases to <700,000. Overall, she feels she is doing fairly well. She does have fatigue, but tells me that she is "83 years old." She has chronic lower extremity swelling. She has pruritus which occurs on day 3 after treatment, but this resolves quickly with Benadryl. She was neutropenic last week and is here to follow up on that. ONCOLOGY HISTORY Patient is an 83-year-old female who was admitted to the hospital and was found to have pancytopenia. Her CBC showed white count 1.9, hemoglobin 8.6, hematocrit 26.4, platelets 172,000, and MCV 97.4. She had some hematological workup including serum iron which was normal at 90, TIBC was 216, iron saturation 41.7%. Vitamin B12 was more than 1500, and folate level was more than 22.3. Bone marrow aspiration biopsy done on August 04, 2017, was positive for myelodysplastic syndrome with no increased blasts. The blast count was only 1%. 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 Megakaryocytes showed patchy increase in some dysplastic features including hyperchromatic forms, abnormal small forms, and abnormal large forms. 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 FISH for analysis was abnormal with 12d-. 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 Molecular profiling testing showed pathogenic alterations detected in the IDH2, JAK2, KRAS, and SRSF2 genes. Patient started treatment with VIDAZA subcutaneously on August 14, 2017. Developed skin reaction to the subcutaneous injection of VIDAZA after eight cycles. Switched to IV VIDAZA after that. PAST MEDICAL HISTORY 1. History of stroke 2001. 2. DVT 2014. 3. Atrial fibrillation 2010. 4. Hypertension 2007. 5. Right renal infarct 2008. 6. Overactive bladder 2005. 7. Hyperparathyroidism with hypercalcemia. PAST SURGICAL HISTORY 1. Cataract extraction bilaterally. 2. Pacemaker placement 2008. 3. Appendectomy 2008. 4. Cholecystectomy 1993. 5. Hysterectomy with oophorectomy. 6. Left breast biopsy in the past. FAMILY HISTORY Negative for cancer or blood diseases. SOCIAL HISTORY Patient is a . She has four sons and one daughter. 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 Denies any abuse of tobacco, alcohol, or drugs. CURRENT MEDICATIONS 1. Atorvastatin 40 mg daily. 2. Lisinopril 5 mg daily. 3. Xarelto 20 mg daily. 4. Vitamin D 1000 units daily. 5. Calcium carbonate and vitamin D3 chewable tablet, one tablet daily. 6. Lasix 40 mg daily. 7. KCl 20 mEq daily. ALLERGIES No known drug allergies. REVIEW OF SYSTEMS A 12-point review of systems is performed and is negative except as stated above. PHYSICAL EXAMINATION VITAL SIGNS: Weight 74.7 kg. BP 162/69, P 83, R 16, temp 97.9, O2 sat 95%. GENERAL: Patient is a well-developed, well-nourished female in no acute distress. She does appear fatigued today. HEAD: Normocephalic, atraumatic. EYES: Sclerae anicteric. MOUTH: Moist mucous membranes. No lesions. NECK: Supple. No adenopathy. LUNGS: Clear bilaterally. CARDIOVASCULAR: Heart rate regular, 82 per minute, without murmur, S3, or S4. EXTREMITIES: Chronic lower extremity swelling. NEUROLOGIC: Nonfocal. LABORATORY CBC today reveals a WBC of 3.4, ANC of 1.8, hemoglobin 11.7, hematocrit 38.3, platelets 483,000. CMP is within normal limits except for an elevated BUN of 26 and decreased albumin of 3.3. IMPRESSION AND PLAN The patient is an 83-year-old female diagnosed with myelodysplastic syndrome by bone marrow biopsy on 08/04/17. This showed 1% blasts and numerous ringed sideroblasts. There were multiple chromosomal abnormalities by cytogenetic analysis. 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 Molecular profiling showed pathogenic alteration detected in IDH2, JAK2, KRAS, and SRSF2 genes. Began treatment with subcutaneous VIDAZA on 08/14/17. Switched to intravenous VIDAZA after eight cycles due to skin reaction. 1. Myelodysplastic syndrome. Patient received her last cycle of VIDAZA on 08/03/18. This was given over three days. Treatment dosing has been changed to every five weeks as her platelet count was consistently >1,000,000 at four weeks. 2. Neutropenia. Noted to have more neutropenia with an ANC of 0.6 last week. However, her ANC today has improved to 1.8. She has had no issues with infection, but will monitor for this. 3. Thrombocytosis. Platelet count today is 483,000. 4. Lower extremity swelling. Chronic. She manages this with Lasix with potassium supplement. 5. Lab 08/25/18. 6. Follow up with Dr. Carranza on 09/03/18. She will be due for cycle 12 of VIDAZA on 09/07/18. MTDD
[2018-08-25] MEDS: HEPARIN FLSH (PORT) 500 UN/5ML IVP PRN (11:55)
[2018-08-25] MEDS: LIDOCAINE/SOD BICARB 8.4% SYR ID PRN (11:55)
[2018-08-25 12:45] LABS: PLATELET COUNT, AUTOMATED 1033 K/uL (150-450)
[2018-09-03 12:33] VITALS: BP 142/69
--- NOTE | 2018-09-03 17:58 | [facility] ONCOLOGY NOTE ---
EVENT DATE: September 03, 2018 DIAGNOSES 1. Myelodysplastic syndrome with increased ringed sideroblasts. 2. 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 CHIEF COMPLAINT Patient is here today for followup of her myelodysplastic syndrome, on treatment with Vidaza. This will be cycle #12. ONCOLOGY HISTORY Patient is an 83-year-old, very nice lady who was admitted to the hospital and was found to have pancytopenia. Her CBC showed white count 1.9, hemoglobin 8.6, hematocrit 26.4, platelets 172,000, and MCV 97.4. She had some hematological workup including serum iron which was normal at 90, TIBC was 216, iron saturation 41.7%. Vitamin B12 was more than 1500, and folate level was more than 22.3. Patient was referred for evaluation and management of pancytopenia. Patient had bone marrow aspiration biopsy done on August 04, 2017, and the diagnosis came back positive for myelodysplastic syndrome with no increased blasts. The blast count was only 1%. 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 Megakaryocytes showed patchy increase in some dysplastic features including hyperchromatic forms, abnormal small forms, and abnormal large forms. FISH for MDS is still pending. 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 FISH for analysis was abnormal with 12d-. 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 Molecular profiling testing showed pathogenic alterations detected in the IDH2, JAK2, KRAS, and SRSF2 genes. Patient started treatment with Vidaza subcutaneously on August 14, 2017. HISTORY OF PRESENT ILLNESS Patient is here today for followup of her myelodysplastic syndrome on azacitidine. Patient is doing fine currently. She is complaining of easy bruising, but other than that, she is really doing very well. PAST MEDICAL HISTORY 1. History of stroke 2001. 2. DVT 2014. 3. Atrial fibrillation 2010. 4. Hypertension 2007. 5. Right renal infarct 2008. 6. Overactive bladder 2005. 7. Hyperparathyroidism with hypercalcemia. PAST SURGICAL HISTORY 1. Cataract extraction bilaterally. 2. Pacemaker placement 2008. 3. Appendectomy 2008. 4. Cholecystectomy 1993. 5. Hysterectomy with oophorectomy. 6. Left breast biopsy in the past. FAMILY HISTORY Negative for cancer or blood diseases. SOCIAL HISTORY Patient is a . She had four sons and one daughter. 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 Denies any abuse of tobacco, alcohol, or drugs. CURRENT MEDICATIONS 1. Atorvastatin 40 mg daily. 2. Spironolactone/hydrochlorothiazide 25/25 one tablet daily. 3. Xarelto 20 mg daily. 4. Vitamin D 1000 units daily. 5. Calcium carbonate and vitamin D3 chewable tablet, one tablet daily. ALLERGIES No known drug allergies. REVIEW OF SYSTEMS CONSTITUTIONAL: No appetite or weight change. No fever, chills, or sweating. No recent infection. HEENT: Ears: No tinnitus or hearing problem. Nose: No nasal discharge or epistaxis. Throat: No sore throat or mouth ulcers. Eyes: No diplopia or visual changes. RESPIRATORY: No shortness of breath. No cough, expectoration, or hemoptysis. CARDIOVASCULAR: No chest pain, orthopnea, or paroxysmal nocturnal dyspnea (PND). No edema. No palpitations. GASTROINTESTINAL: No nausea or vomiting. No diarrhea or constipation. No change in bowel movements. No heartburn or swallowing difficulties. No abdominal pain. No jaundice. No hematemesis, melena, or rectal bleeding. GENITOURINARY: No hematuria or dysuria. MUSCULOSKELETAL: No pain in the muscles, joints, or bones. NEUROLOGIC: No tingling or numbness in the hands or feet. No headaches or convulsions. HEMATOLOGIC/LYMPHATIC: Patient has easy bruising. No weakness or fatigue. No enlarged lymph nodes. SKIN: No skin rash or lumps. PSYCHIATRIC: No anxiety or depression. PHYSICAL EXAMINATION GENERAL: Looks stable. Well developed, well nourished, and in no acute distress. VITAL SIGNS: Blood pressure 142/69, pulse 60 per minute, respirations 16 per minute, temperature 96.7, pulse ox 96 % on room air. HEENT: Head: Atraumatic. No sinus tenderness to palpation. Eyes: No icterus or conjunctivitis. Mouth and throat: No oral thrush or mucositis. NECK: Supple. No cervical or supraclavicular lymphadenopathy. LUNGS: Clear to auscultation and percussion bilaterally. HEART: Regular rate and rhythm. No gallops, murmurs, clicks, or rubs. ABDOMEN: Soft and lax. No tenderness. No hepatosplenomegaly. No masses. EXTREMITIES: No cyanosis, clubbing, or edema. LYMPHATICS: No peripheral lymphadenopathy. NEUROLOGIC: Conscious, alert, and oriented times three. No focal motor or sensory deficits. PSYCHIATRIC: Mood and affect appear normal. SKIN: No skin rash, bruise, or purpuric eruption. DIAGNOSTIC DATA CBC showed white count 3.7, hemoglobin 11.3, hematocrit 36.4, platelets 1,033,000. Chem panel totally normal except blood sugar 73, BUN 20, chloride 114, total protein 6.1, and albumin 3.4. ASSESSMENT 1. Myelodysplastic syndrome proven by bone marrow aspiration biopsy done August 04, 2017, which revealed myelodysplastic syndrome with 1% blasts and numerous ringed sideroblasts. There were multiple chromosomal abnormalities by cytogenic analysis. 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 Molecular profiling showed pathogenic alteration detected in IDH2, JAK2, KRAS, and SRSF2 genes. Patient started treatment with Vidaza August 14, 2017. She received 11 cycles so far, and the patient developed a skin reaction to the subcutaneous injection of Vidaza, so she started treatment with intravenous Vidaza after that. Her platelet count showed marked elevation after Vidaza treatment, and currently her platelet count is 1,033,000. This high platelet count even occurred after increasing the frequency and decreasing the dose of the drug. She is currently taking three days of Vidaza instead of five and every five weeks rather than every four weeks. I am planning this time to decrease the dose to two days per cycle every five weeks and will see if this one will continue to maintain her hemoglobin so the patient will not need frequent blood transfusions. I am planning to proceed with her cycle #12 with this new modification. I will see her in five weeks from now with CBC and chem panel, and I will check the same labs every week during her treatment. Patient since starting her on Vidaza became transfusion independent. 2. Thrombocytosis, most probably due to Vidaza treatment. Current platelet count 1,033,000. I am planning to modify the dose and the frequency of the drug so she will take two days instead of five, and her cycle will be five weeks instead of four. PLAN 1. Continue followup. 2. Modify Vidaza therapy with two days instead of five every five weeks instead of every four weeks. 3. Cycle #12 to start on the August. 4. CBC and chem panel to be checked weekly. 5. Patient to return in five weeks with CBC and chem panel. 6. Patient to contact us for any new concerns or complaints. MTDD
[2018-09-08 09:30] VITALS: BP 136/54
[2018-09-08] MEDS: NS(*) 0.9% 100 ML BAG 100 ML IVPB PRN (09:39)
[2018-09-08] MEDS: LIDOCAINE/SOD BICARB 8.4% SYR ID PRN (09:39)
[2018-09-08] MEDS: HEPARIN FLSH (PORT) 500 UN/5ML IVP PRN (09:40)
[2018-09-08 10:53] VITALS: BP 119/52
[2018-09-09 09:35] VITALS: BP 114/84
[2018-09-09] MEDS: NS(*) 0.9% 100 ML BAG 100 ML IVPB PRN (09:36)
[2018-09-09] MEDS: LIDOCAINE/SOD BICARB 8.4% SYR ID PRN (09:40)
[2018-09-09 10:00] VITALS: BP 109/80
[2018-09-14] MEDS: LIDOCAINE/SOD BICARB 8.4% SYR ID PRN (11:10)
[2018-09-14 11:13] VITALS: BP 142/61
[2018-09-14] MEDS: HEPARIN FLSH (PORT) 500 UN/5ML IVP PRN (11:15)
[2018-09-14 11:16] LABS: PLATELET COUNT, AUTOMATED 685 K/uL (150-450)
[2018-09-22 09:24] VITALS: BP 138/73
[2018-09-22] MEDS: HEPARIN FLSH (PORT) 500 UN/5ML IVP PRN (09:24)
[2018-09-22] MEDS: LIDOCAINE/SOD BICARB 8.4% SYR ID PRN (09:24)
[2018-09-22 09:35] LABS: PLATELET COUNT, AUTOMATED 663 K/uL (150-450)
[2018-09-29 09:04] VITALS: BP 128/60
[2018-09-29] MEDS: HEPARIN FLSH (PORT) 500 UN/5ML IVP PRN (09:20)
[2018-09-29] MEDS: LIDOCAINE/SOD BICARB 8.4% SYR ID PRN (09:20)
[2018-09-29 09:21] LABS: PLATELET COUNT, AUTOMATED 814 K/uL (150-450)
[2018-10-06 09:30] VITALS: BP 167/68
[2018-10-06] MEDS: LIDOCAINE/SOD BICARB 8.4% SYR ID PRN (09:43)
[2018-10-06] MEDS: HEPARIN FLSH (PORT) 500 UN/5ML IVP PRN (09:43)
[2018-10-06 10:25] LABS: PLATELET COUNT, AUTOMATED 1138 K/uL (150-450)
[2018-10-08 11:48] VITALS: BP 169/72
--- NOTE | 2018-10-08 15:43 | [facility] ONCOLOGY NOTE ---
EVENT DATE: October 08, 2018 DIAGNOSES 1. Myelodysplastic syndrome with increased ringed sideroblasts. 2. 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 CHIEF COMPLAINT Patient is here today for followup of her myelodysplastic syndrome on treatment with Vidaza. ONCOLOGY HISTORY Patient is an 83-year-old, very nice lady who was admitted to the hospital and was found to have pancytopenia. Her CBC showed white count 1.9, hemoglobin 8.6, hematocrit 26.4, platelets 172,000, and MCV 97.4. She had some hematological workup including serum iron which was normal at 90, TIBC was 216, iron saturation 41.7%. Vitamin B12 was more than 1500, and folate level was more than 22.3. Patient was referred for evaluation and management of pancytopenia. Patient had bone marrow aspiration biopsy done on August 04, 2017, and the diagnosis came back positive for myelodysplastic syndrome with no increased blasts. The blast count was only 1%. 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 Megakaryocytes showed patchy increase in some dysplastic features including hyperchromatic forms, abnormal small forms, and abnormal large forms. FISH for MDS is still pending. 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 FISH for analysis was abnormal with 12d-. 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 Molecular profiling testing showed pathogenic alterations detected in the IDH2, JAK2, KRAS, and SRSF2 genes. Patient started treatment with Vidaza subcutaneously on August 14, 2017. HISTORY OF PRESENT ILLNESS Patient is here today for followup of her myelodysplastic syndrome on azacitidine. Patient is doing very well, and she is transfusion independent since we started her on Vidaza. She is totally asymptomatic today. PAST MEDICAL HISTORY 1. History of stroke 2001. 2. DVT 2014. 3. Atrial fibrillation 2010. 4. Hypertension 2007. 5. Right renal infarct 2008. 6. Overactive bladder 2005. 7. Hyperparathyroidism with hypercalcemia. PAST SURGICAL HISTORY 1. Cataract extraction bilaterally. 2. Pacemaker placement 2008. 3. Appendectomy 2008. 4. Cholecystectomy 1993. 5. Hysterectomy with oophorectomy. 6. Left breast biopsy in the past. FAMILY HISTORY Negative for cancer or blood diseases. SOCIAL HISTORY Patient is a . She had four sons and one daughter. 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 Denies any abuse of tobacco, alcohol, or drugs. CURRENT MEDICATIONS 1. Atorvastatin 40 mg daily. 2. Spironolactone/hydrochlorothiazide 25/25 one tablet daily. 3. Xarelto 20 mg daily. 4. Vitamin D 1000 units daily. 5. Calcium carbonate and vitamin D3 chewable tablet, one tablet daily. ALLERGIES No known drug allergies. REVIEW OF SYSTEMS CONSTITUTIONAL: No appetite or weight change. No fever, chills, or sweating. No recent infection. HEENT: Ears: No tinnitus or hearing problem. Nose: No nasal discharge or epistaxis. Throat: No sore throat or mouth ulcers. Eyes: No diplopia or visual changes. RESPIRATORY: No shortness of breath. No cough, expectoration, or hemoptysis. CARDIOVASCULAR: No chest pain, orthopnea, or paroxysmal nocturnal dyspnea (PND). No edema. No palpitations. GASTROINTESTINAL: No nausea or vomiting. No diarrhea or constipation. No change in bowel movements. No heartburn or swallowing difficulties. No abdominal pain. No jaundice. No hematemesis, melena, or rectal bleeding. GENITOURINARY: No hematuria or dysuria. MUSCULOSKELETAL: No pain in the muscles, joints, or bones. NEUROLOGICAL: No tingling or numbness in the hands or feet. No headaches or convulsions. HEMATOLOGIC/LYMPHATIC: No bleeding or easy bruising. No weakness or fatigue. No enlarged lymph nodes. SKIN: No skin rash or lumps. PSYCHIATRIC: No anxiety or depression. PHYSICAL EXAMINATION GENERAL: Looks stable. Well developed, well nourished, and in no acute distress. VITAL SIGNS: Blood pressure 149/68, pulse 64 per minute, respirations 14 per minute, temperature 96.2, pulse ox 93% on room air. HEENT: Head: Atraumatic. No sinus tenderness to palpation. Eyes: No icterus or conjunctivitis. Mouth and Throat: No oral thrush or mucositis. NECK: Supple. No cervical or supraclavicular lymphadenopathy. LUNGS: Clear to auscultation and percussion bilaterally. HEART: Regular rate and rhythm. No gallops, murmurs, clicks, or rubs. ABDOMEN: Soft and lax. No tenderness. No hepatosplenomegaly. No masses. EXTREMITIES: No cyanosis, clubbing, or edema. LYMPHATICS: No peripheral lymphadenopathy. NEUROLOGICAL: Conscious, alert, and oriented times three. No focal motor or sensory deficits. PSYCHIATRIC: Mood and affect appear normal. SKIN: No skin rash, bruise, or purpuric eruption. DIAGNOSTIC DATA CBC showed white count 3.9, hemoglobin 12.1, hematocrit 38.6, and platelet count 1,138,000. ASSESSMENT 1. Myelodysplastic syndrome proven by bone marrow aspiration biopsy done August 04, 2017, which revealed myelodysplastic syndrome with 1% blasts and numerous ringed sideroblasts. There were multiple chromosomal abnormalities by cytogenic analysis. 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 Molecular profiling showed pathogenic alteration detected in IDH2, JAK2, KRAS, and SRSF2 genes. Patient started treatment with Vidaza August 14, 2017. She received 12 courses so far, and the patient developed skin reaction to the subcutaneous injection of Vidaza, so she started treatment with intravenous Vidaza after that. She showed significant rise of her platelets during the treatment, usually in the second half of her cycle. Her platelet count leonela to above 1,000,000. Currently, it is 1,138,000. The dose of the drug is decreased to two days instead of five days, and she is still having the same the problem. I am planning to space her treatment to every six weeks, and I may consider treatment with anagrelide to control her peaked platelet count. I spoke about that with the patient and her son, and they are agreeable with the plan of management. I am planning to proceed with her cycle 13 if her platelet count drops to below 500,000. I will see her again in six weeks with CBC and chemistry panel. 2. Thrombocytosis, most probably due to Vidaza treatment. Current platelet count 1,138,000. I am planning to space the treatment to six weeks and consider treatment with anagrelide when her platelet count peaks. PLAN 1. Continue followup. 2. Space the frequency of Vidaza therapy to every six weeks. 3. CBC and chem panel to be checked weekly. 4. Patient to return in six weeks with CBC and chem panel. 5. Consider anagrelide to control her platelet count when it is very high. 6. Patient to contact us for any new concern or complaints. MTDD
[2018-10-13 09:30] VITALS: BP 143/71
[2018-10-13] MEDS: HEPARIN FLSH (PORT) 500 UN/5ML IVP PRN (09:45)
[2018-10-13] MEDS: LIDOCAINE/SOD BICARB 8.4% SYR ID PRN (09:45)
[2018-10-13 09:51] LABS: PLATELET COUNT, AUTOMATED 610 K/uL (150-450)
[2018-10-20 09:32] VITALS: BP 117/57
[2018-10-20] MEDS: LIDOCAINE/SOD BICARB 8.4% SYR ID PRN (09:43)
[2018-10-20] MEDS: HEPARIN FLSH (PORT) 500 UN/5ML IVP PRN (09:43)
--- NOTE | 2018-10-20 13:19 | Oncology Note ---
Pt was in today for CBC, Plts at 606,00K. Has been as high as 1,138 as recently as two weeks ago. I reviewed her case with Dr. Carranza by phone today, as we are considering starting Agrylin. Will hold off on starting this for now, at least for another week, when she's in for next CBC. Hopefully her platelet count will come down further by next week. Will review this with nursing staff and will have them update patient. JOYCE Juarez APRN,[facility] Oct 20, 2018 13:19
[2018-10-27 09:32] VITALS: BP 118/62
[2018-10-27] MEDS: LIDOCAINE/SOD BICARB 8.4% SYR ID PRN (10:00)
[2018-10-27] MEDS: NS(*) 0.9% 100 ML BAG 100 ML IVPB PRN (10:00)
[2018-10-27] MEDS: HEPARIN FLSH (PORT) 500 UN/5ML IVP PRN (11:02)
[~2018-10-28] VITALS: Ht 160 cm; Wt 76.5 kg
--- NOTE | 2018-10-28 02:46 | ONCOLOGY FOLLOW UP NOTE ---
EVENT DATE: October 27, 2018 DIAGNOSES 1. Myelodysplastic syndrome with increased ringed sideroblasts. 2. 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 CHIEF COMPLAINT Patient is here today for followup labs and evaluation of reinitiation with Vidaza for her myelodysplastic syndrome. She has currently been on hold for approximately seven weeks secondary to thrombocythemia. ONCOLOGY HISTORY Patient is a very nice 83-year-old who was admitted to the hospital and was found to have pancytopenia. Her CBC showed white count 1.9, hemoglobin 8.6, hematocrit 26.4, platelets 172,000, and MCV 97.4. She had some hematological workup including serum iron which was normal at 90, TIBC was 216, iron saturation 41.7%. Vitamin B12 was more than 1500, and folate level was more than 22.3. Patient was referred for evaluation and management of pancytopenia. Patient had bone marrow aspiration biopsy done on August 04, 2017, and the diagnosis came back positive for myelodysplastic syndrome with no increased blasts. The blast count was only 1%. 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 Megakaryocytes showed patchy increase in some dysplastic features including hyperchromatic forms, abnormal small forms, and abnormal large forms. FISH for MDS is still pending. 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 FISH for analysis was abnormal with 12d-. 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 Molecular profiling testing showed pathogenic alterations detected in the IDH2, JAK2, KRAS, and SRSF2 genes. Patient started treatment with Vidaza subcutaneously on August 14, 2017. We have adjusted her scheduling a couple of times secondary to her rising platelet count. Her platelet count has been as high as 1,000,000. Dose of the drug has been decreased to two days versus five days, and she still has elevated platelets. We then decided to space out treatment to two consecutive days every six weeks. We have previously discussed consideration of initiating treatment with anagrelide to help control her platelet count. Our plan was to proceed with Cycle #13 once her platelet count dropped to below 500,000 . She is accompanied in the office by her son. She has some difficulty with memory/dementia. The patient is interactive during visit and tells me that she is feeling well. HISTORY OF PRESENT ILLNESS Patient is here today for followup of her myelodysplastic syndrome on azacitidine. Patient is doing very well, and she is transfusion independent since we started her on Vidaza. She feels well today and is completely asymptomatic. Vidaza has been on hold now for approximately seven weeks secondary to her thrombocythemia. She denies any difficulty with bleeding, as she is on Xarelto chronically for atrial fibrillation as well as history of a left lower extremity DVT. She does have some easy bruising, but tells me that this is nothing new. She and her son tell me that she has really been feeling quite well. PAST MEDICAL HISTORY 1. History of stroke 2001. 2. DVT 2014. 3. Atrial fibrillation 2010. 4. Hypertension 2007. 5. Right renal infarct 2008. 6. Overactive bladder 2005. 7. Hyperparathyroidism with hypercalcemia. PAST SURGICAL HISTORY 1. Cataract extraction bilaterally. 2. Pacemaker placement 2008. 3. Appendectomy 2008. 4. Cholecystectomy 1993. 5. Hysterectomy with oophorectomy. 6. Left breast biopsy in the past. FAMILY HISTORY Negative for cancer or blood diseases. SOCIAL HISTORY Patient is a . She had four sons and one daughter. 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 Denies any abuse of tobacco, alcohol, or drugs. CURRENT MEDICATIONS 1. Atorvastatin 40 mg daily. 2. Spironolactone/hydrochlorothiazide 25/25 one tablet daily. 3. Xarelto 20 mg daily. 4. Vitamin D 1000 units daily. 5. Calcium carbonate and vitamin D3 chewable tablet, one tablet daily. ALLERGIES No known drug allergies. REVIEW OF SYSTEMS CONSTITUTIONAL: Patient denies any recent fevers, chills, or night sweats. No recent infections. No bleeding difficulties. HEENT: No vision changes. No tinnitus. No nasal drainage or mouth sores. RESPIRATORY: No cough, sputum production, or hemoptysis. No shortness of breath or pleuritic chest pain. CARDIOVASCULAR: She denies any palpitations. No syncope or presyncope. GASTROINTESTINAL: No abdominal pain, nausea, vomiting, diarrhea, constipation, bright red blood per rectum, or melena. No changes in appetite. She reports a good appetite. GENITOURINARY: No dysuria, hematuria, or genitourinary discharge. MUSCULOSKELETAL: No focal areas of pain. NEURO: She denies any headache or seizure-like activity. She denies any paresthesias. ENDOCRINE: She denies any heat or cold intolerance. She has some mild fatigue, which is manageable. no change. DERM: No suspicious rash, lumps or bumps. PSYCH: She denies any severe anxiety, severe depression, suicidal or homicidal ideation. The remainder of her 12-point review of systems is performed today and is otherwise negative. PHYSICAL EXAMINATION VITAL SIGNS: Weight today 76.5 kg up from 75.5 kg on 10/20/2018. Temperature 97.6, P 61, R 16, BP 118/62. Oxygen saturation 93% on room air. GENERAL: In general, this is a pleasant 83-year-old woman who appears well developed, well nourished, and is in no acute distress. HEAD: Atraumatic, normocephalic. EYES: Sclerae anicteric. ENT/MOUTH: No signs of mucositis or thrush. No suspicious ulcerations. NECK: Supple. No lymphadenopathy. No JVD. LUNGS: Clear breath sounds to auscultation bilaterally. No wheezes, rales or rhonchi. Chest expansion is symmetrical. HEART: Regular rate and rhythm. No ectopy. ABDOMEN: Soft, nontender, and nondistended. No organomegaly on cursory examination. EXTREMITIES: No edema. No clubbing or cyanosis. NEURO: Patient is awake, alert, oriented x3. She does have a history of some memory difficulty, though is interactive and alert throughout exam. There are no focal motor or sensory deficits. PSYCH: Mood and affect are appropriate. DERM: No skin rash, petechiae, or purpuric eruption. MUSCULOSKELETAL: Gait is steady. LABORATORY CBC today: WBC 3.9, ANC 2.5, hemoglobin 12.4, hematocrit 39.7%, platelets up to 656,000. Previously, platelets were 606,000 on 10/20/2018. CMP today: Unremarkable with the exception of low protein at 6.0, unchanged compared to last week, and hypoalbuminemia with albumin at 3.4, which is unchanged and stable compared to last week. IMPRESSION AND PLAN Patient is an 83-year-old woman with myelodysplastic syndrome proven by bone marrow aspiration biopsy done August 04, 2017, which revealed myelodysplastic syndrome with 1% blasts and numerous ringed sideroblasts. There were multiple chromosomal abnormalities by cytogenic analysis. 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 Molecular profiling showed pathogenic alteration detected in IDH2, JAK2, KRAS, and SRSF2 genes. Patient started treatment with Vidaza on August 14, 2017. She received 12 courses and developed skin reaction to the subcutaneous injection of Vidaza, so she started treatment with intravenous Vidaza after that. She has had significant rise in her platelet count throughout treatment, and typically this is evident in the second half of her cycle. Her platelet count has risen to above 1,000,000. Most recently, her platelet count on 10/06/18 was up to 1,138,000. Her dose of drug has been decreased down to two days versus five days, and has also been spaced out more now at every six weeks again, all secondary to her consistent thrombocythemia. We have discussed anagrelide in the past. She is aware of this and has discussed this with Dr. Carranza. Treatment has been on hold now for approximately seven weeks due her platelet count. Our plan was to reinitiate treatment once her platelet count drops to below 500,000, though she does have a rise in platelets today, and she may likely not come down toward 500,000 without adjunct therapy. 1. Myelodysplastic syndrome. Now on Vidaza intravenously, given daily for two days and spaced out to every six weeks versus four. We will continue on this current plan. We will reinitiate this today, which will be Cycle #13. 2. 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 Currently, platelets are still above 500,000, and have risen up to 656,000. One week ago, these were 606,000 and have been in the 600,000 range for approximately three weeks now. We discussed initiating anagrelide. The patient wishes to proceed with this. Her son, her medical [id number], wishes to proceed with this. I have given them written instructions on anagrelide and discussed common side effects and signs and symptoms of these side effects. I have e-prescribed this today, anagrelide 1 mg p.o. b.i.d., #60, no refills. Discussed with patient and her son that it is common to adjust this dose based on platelet count. 3. Patient will return to clinic tomorrow for day 2, Cycle #13, with Vidaza. 4. Patient will continue with weekly labs. 5. Patient will follow up with me next week for weekly CBC and one-week toxicity check to evaluate for any symptoms related to new anagrelide therapy. We did discuss the potential for palpitations, headaches, diarrhea, fatigue, and generalized asthenia, and even abdominal pain, rash, tachycardia, malaise, and paresthesias, all related to anagrelide. Also discussed potential for arthralgias. Again, we will monitor. Also discussed the risk for hepatic impairment and increases in QT interval prolongation. MTDD
[~2018-10-28 09:24] MED LIST changes: +ANAG1CAP PO; -AZACITIDINE IVPB PRN; -NS 0.9% IVPB PRN; +NS(*) 0.9% 500 ML BAG 500 ML IV PRN; -ROS10 PO; +ROSU10TA PO; +[UNRECOGNIZED DRUG - CODE] PO
[2018-10-28] MEDS ORDERED: AZACITIDINE IVPB ONE (09:30)
[2018-10-28] MEDS ORDERED: NS 0.9% IVPB ONE (09:30)
[2018-10-28 09:31] VITALS: BP 130/58
[2018-10-28] MEDS: LIDOCAINE/SOD BICARB 8.4% SYR ID PRN (09:34)
[2018-10-28] MEDS: HEPARIN FLSH (PORT) 500 UN/5ML IVP PRN (09:34)
== END 2018-10-31 ==
LOC: ONC 09:24
PROVIDERS: ATTEND Internal Medicine Hematology
DX: D46.9 Myelodysplastic syndrome, unspecified (principal); D69.6 Thrombocytopenia, unspecified; R60.0 Localized edema; L29.9 Pruritus, unspecified; D70.9 Neutropenia, unspecified; R53.83 Other fatigue; Z86.73 Personal history of transient ischemic attack (TIA), and cerebral infarction without residual deficits; Z86.718 Personal history of other venous thrombosis and embolism; Z79.01 Long term (current) use of anticoagulants; I10 Essential (primary) hypertension
CPT/HCPCS: 36591; 83615; 84100; 84550; 85025; 85027; 96365; 96374; 96523; G0463; J1642; J7040; J7050; J9025; 82040; 82247; 82310; 82374; 82435; 82565; 82947; 84075; 84132; 84155; 84295; 84450; 84460; 84520; 99212

== ENCOUNTER → 2019-01-13 | Outpatient (CLI) | payer MEDICARE, OTHER ==
[2017-07-20 16:11] VITALS: BMI 29.2
[~2019-01-13] MED LIST changes: -ALTEPLASE RECOMB 2 MG VIAL IVP PRN; -AZACITIDINE IVPB ONE; -DEXTROSE 5%(*) 100 ML BAG 100 ML IVPB PRN; +FURO80TA10 PO; -NS 0.9% IVPB ONE; -NS(*) 0.9% 500 ML BAG 500 ML IV PRN; -ONDANSETRON 4 MG ODT TABDP SL PRN; -WATER FOR INJ,STERILE 20 ML IVP PRN; +[UNRECOGNIZED DRUG - CODE] PO
== END ==
LOC: SPU 08:52
PROVIDERS: ATTEND Internal Medicine Cardiovascular Disease
DX: I50.32 Chronic diastolic (congestive) heart failure (principal)
CPT/HCPCS: 83735

== ENCOUNTER 2019-01-26 12:55 | Outpatient (RCR) | payer MEDICARE, OTHER ==
[2017-07-20 16:11] VITALS: Wt 69.2 kg
[2018-11-03 09:31] VITALS: BP 110/57
[2018-11-03] MEDS: HEPARIN FLSH (PORT) 500 UN/5ML IVP PRN (09:35)
[2018-11-03] MEDS: LIDOCAINE/SOD BICARB 8.4% SYR ID PRN (09:35)
[2018-11-03 09:43] LABS: PLATELET COUNT, AUTOMATED 614 K/uL (150-450)
[2018-11-10 09:28] VITALS: BP 104/51
[2018-11-10] MEDS: HEPARIN FLSH (PORT) 500 UN/5ML IVP PRN (09:45)
[2018-11-10] MEDS: LIDOCAINE/SOD BICARB 8.4% SYR ID PRN (09:45)
[2018-11-10 09:49] LABS: PLATELET COUNT, AUTOMATED 452 K/uL (150-450)
[2018-11-17] MEDS: LIDOCAINE/SOD BICARB 8.4% SYR ID PRN (09:28)
[2018-11-17 09:29] VITALS: BP 130/38
[2018-11-17] MEDS: HEPARIN FLSH (PORT) 500 UN/5ML IVP PRN (09:29)
[2018-11-17 09:48] LABS: PLATELET COUNT, AUTOMATED 873 K/uL (150-450)
[2018-11-18 10:03] VITALS: BP 127/65
--- NOTE | 2018-11-18 11:55 | [facility] ONCOLOGY NOTE ---
EVENT DATE: November 18, 2018 DIAGNOSES 1. Myelodysplastic syndrome with increased ringed sideroblasts. 2. 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 CHIEF COMPLAINT Patient is here today for followup of her myelodysplastic syndrome, on treatment with Vidaza. ONCOLOGY HISTORY Patient is an 83-year-old, very nice lady who was admitted to the hospital and was found to have pancytopenia. Her CBC showed white count 1.9, hemoglobin 8.6, hematocrit 26.4, platelets 172,000, and MCV 97.4. She had some hematological workup including serum iron which was normal at 90, TIBC was 216, iron saturation 41.7%. Vitamin B12 was more than 1500, and folate level was more than 22.3. Patient was referred for evaluation and management of pancytopenia. Patient had bone marrow aspiration biopsy done on August 04, 2017, and the diagnosis came back positive for myelodysplastic syndrome with no increased blasts. The blast count was only 1%. 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 Megakaryocytes showed patchy increase in some dysplastic features including hyperchromatic forms, abnormal small forms, and abnormal large forms. FISH for MDS is still pending. 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 FISH for analysis was abnormal with 12d-. 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 Molecular profiling testing showed pathogenic alterations detected in the IDH2, JAK2, KRAS, and SRSF2 genes. Patient started treatment with Vidaza subcutaneously on August 14, 2017. HISTORY OF PRESENT ILLNESS Patient is here today for followup of her myelodysplastic syndrome on azacitidine. Patient started treatment with anagrelide to control her platelet count, which comes back very high after Vidaza therapy but, unfortunately, after starting the Vidaza she started to have gross edema of her lower extremity with dusky color of the lower legs. She is also complaining of exertional shortness of breath, diarrhea occasionally, back pain and erythema of the legs which, as per patient, started to happen after she had DVT of her lower extremities. PAST MEDICAL HISTORY 1. History of stroke 2001. 2. DVT 2014. 3. Atrial fibrillation 2010. 4. Hypertension 2007. 5. Right renal infarct 2008. 6. Overactive bladder 2005. 7. Hyperparathyroidism with hypercalcemia. PAST SURGICAL HISTORY 1. Cataract extraction bilaterally. 2. Pacemaker placement 2008. 3. Appendectomy 2008. 4. Cholecystectomy 1993. 5. Hysterectomy with oophorectomy. 6. Left breast biopsy in the past. FAMILY HISTORY Negative for cancer or blood diseases. SOCIAL HISTORY Patient is a . She had four sons and one daughter. 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 Denies any abuse of tobacco, alcohol, or drugs. CURRENT MEDICATIONS 1. Atorvastatin 40 mg daily. 2. Spironolactone/hydrochlorothiazide 25/25 one tablet daily. 3. Xarelto 20 mg daily. 4. Vitamin D 1000 units daily. 5. Calcium carbonate and vitamin D3 chewable tablet, one tablet daily. 6. Anagrelide 0.5 mg orally twice daily. ALLERGIES No known drug allergies. REVIEW OF SYSTEMS CONSTITUTIONAL: No appetite or weight change. No fever, chills, or sweating. No recent infection. HEENT: Ears: No tinnitus or hearing problem. Nose: No nasal discharge or epistaxis. Throat: No sore throat or mouth ulcers. Eyes: No diplopia or visual changes. RESPIRATORY: Patient has exertional shortness of breath. CARDIOVASCULAR: She has actually gross bilateral edema of the legs with dusky red color in her lower legs on the front. GASTROINTESTINAL: She has occasional diarrhea. GENITOURINARY: No hematuria or dysuria. MUSCULOSKELETAL: She has back pain. NEUROLOGICAL: No tingling or numbness in the hands or feet. No headaches or convulsions. HEMATOLOGIC/LYMPHATIC: No bleeding or easy bruising. No weakness or fatigue. No enlarged lymph nodes. SKIN: She has reddish discoloration of the front of the lower legs. PSYCHIATRIC: No anxiety or depression. PHYSICAL EXAMINATION GENERAL: Looks stable. Well developed, well nourished, and in no acute distress. VITAL SIGNS: Blood pressure 127/65, pulse 82 per minute, respirations 16 per minute, pulse ox 95% on room air. HEENT: Head: Atraumatic. No sinus tenderness to palpation. Eyes: No icterus or conjunctivitis. Mouth and Throat: No oral thrush or mucositis. NECK: Supple. No cervical or supraclavicular lymphadenopathy. LUNGS: Clear to auscultation and percussion bilaterally. HEART: Regular rate and rhythm. No gallops, murmurs, clicks, or rubs. ABDOMEN: Soft and lax. No tenderness. No hepatosplenomegaly. No masses. EXTREMITIES: No cyanosis, clubbing, or edema. LYMPHATICS: No peripheral lymphadenopathy. NEUROLOGICAL: Conscious, alert, and oriented times three. No focal motor or sensory deficits. PSYCHIATRIC: Mood and affect appear normal. SKIN: There is reddish discoloration of the front of the lower half of the legs bilaterally associated with her gross edema in the same area. DIAGNOSTIC DATA CBC showed white count 8.1, hemoglobin 11.8, hematocrit 37.1, platelets 873,000. Chem panel totally normal except chloride 110, BUN 27, total protein 6.2, albumin 3.3. ASSESSMENT 1. Myelodysplastic syndrome proven by bone marrow aspiration biopsy done August 04, 2017, which revealed myelodysplastic syndrome with 1% blasts and numerous ringed sideroblasts. There were multiple chromosomal abnormalities by cytogenic analysis. 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 Molecular profiling showed pathogenic alteration detected in IDH2, JAK2, KRAS, and SRSF2 genes. Patient started treatment with Vidaza August 14, 2017. She developed skin reaction to the subcutaneous injection of Vidaza so the patient started treatment with IV Vidaza after that. She also showed significant rise of the platelet after her treatment. Nearly two weeks after Vidaza therapy she started to have the higher platelet count. Her current platelet count is 873,000 while the patient is using now anagrelide 0.5 mg twice daily. Before her platelet count was over 1,000,000. The dose of Vidaza was decreased to two days instead of five days and she still has the same problem each cycle. She is currently taking the Vidaza over two days every six weeks. With Vidaza, her platelet count is better but, unfortunately, patient developed gross edema bilaterally. 2. Thrombocytosis, most probably due to Vidaza treatment. Current platelet count 873,000. Patient is currently on anagrelide 0.5 mg twice daily. We will continue the same. 3. Gross edema bilaterally with reddish discoloration of the front of the lower half of both legs, most probably due to anagrelide therapy so I am planning to use anagrelide only two weeks after her treatment with Vidaza when she starts the have the platelet count rise and stop if for those weeks after Vidaza therapy or until the platelet count decreases while monitoring her platelet every week. For the edema, I am planning to increase the dose of Lasix to 80 mg from 40 mg daily and the dose of potassium chloride from 20 once a day to 20 twice a day until the edema resolves. I explained that to the patient and her son and they are agreeable with the plan of management. PLAN 1. Continue followup. 2. Vidaza two days every six weeks. 3. Anagrelide 0.5 mg to be started two weeks after her Vidaza therapy when her platelet count starts to rise and to discontinue it with normalization of her platelet. 4. CBC and chem panel to be checked weekly. 4. Lasix 80 mg once daily for a few days. 5. Check blood pressure daily, as the patient has a blood pressure machine at home, while she is on high-dose Lasix. 6. Potassium chloride 20 mEq twice daily. 7. Patient to contact us for any new concerns or complaints. MTDD
[2018-11-24 09:31] VITALS: BP 124/71
[2018-11-24] MEDS: LIDOCAINE/SOD BICARB 8.4% SYR ID PRN (09:44)
[2018-11-24] MEDS: HEPARIN FLSH (PORT) 500 UN/5ML IVP PRN (09:44)
[2018-11-24 09:57] LABS: PLATELET COUNT, AUTOMATED 1050 K/uL (150-450)
[2018-12-01] MEDS: HEPARIN FLSH (PORT) 500 UN/5ML IVP PRN (09:28)
[2018-12-01] MEDS: LIDOCAINE/SOD BICARB 8.4% SYR ID PRN (09:28)
[2018-12-01 09:29] VITALS: BP 133/55
[2018-12-01 09:46] LABS: PLATELET COUNT, AUTOMATED 716 K/uL (150-450)
[2018-12-08] MEDS: NS(*) 0.9% 100 ML BAG 100 ML IVPB PRN (09:30)
[2018-12-08 11:25] VITALS: BP 114/54
[2018-12-08 11:40] VITALS: BP 127/56
[2018-12-08] MEDS: LIDOCAINE/SOD BICARB 8.4% SYR ID PRN (11:56)
[2018-12-08] MEDS: HEPARIN FLSH (PORT) 500 UN/5ML IVP PRN (11:57)
--- NOTE | 2018-12-08 15:24 | ONCOLOGY FOLLOW UP NOTE ---
EVENT DATE: December 08, 2018 DIAGNOSES 1. Myelodysplastic syndrome with increased ringed sideroblasts. 2. 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 CHIEF COMPLAINT Patient is here today for followup of her myelodysplastic syndrome, on treatment with Vidaza. Patient is currently due to Cycle #13. ONCOLOGY HISTORY Patient is an 83-year-old, very nice lady who was admitted to the hospital and was found to have pancytopenia. Her CBC showed white count 1.9, hemoglobin 8.6, hematocrit 26.4, platelets 172,000, and MCV 97.4. She had some hematological workup including serum iron which was normal at 90, TIBC was 216, iron saturation 41.7%. Vitamin B12 was more than 1500, and folate level was more than 22.3. Patient was referred for evaluation and management of pancytopenia. Patient had bone marrow aspiration biopsy done on August 04, 2017, and the diagnosis came back positive for myelodysplastic syndrome with no increased blasts. The blast count was only 1%. 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 Megakaryocytes showed patchy increase in some dysplastic features including hyperchromatic forms, abnormal small forms, and abnormal large forms. FISH for MDS is still pending. 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 FISH for analysis was abnormal with 12d-. 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 Molecular profiling testing showed pathogenic alterations detected in the IDH2, JAK2, KRAS, and SRSF2 genes. Patient started treatment with Vidaza subcutaneously on August 14, 2017. HISTORY OF PRESENT ILLNESS Patient is here today for followup of her myelodysplastic syndrome, on azacitidine. Patient was started on treatment with anagrelide b.i.d. in efforts to help control her platelet count, which ended up elevated after therapy with Vidaza. Unfortunately, after starting Vidaza, she started to have gross bilateral lower extremity edema with dusky color of the lower legs. She also reported exertional shortness of breath, occasional diarrhea, back pain, and erythema of her legs which, per patient, started to happen after she had DVT of her lower extremities. She was instructed at her last visit with Dr. Arsenio Mc to change her anagrelide to take twice per day two weeks following each cycle of Vidaza starting with day of treatment. Approximately a week after that on approximately 11/24/18, patient reported that she was having worsening side effects, which she believed were related to anagrelide, to include worsening bilateral lower extremity edema, back pain, and diffuse arthralgias. At that time, we instructed her to hold anagrelide. She remains off anagrelide for now. She tells me that she feels much better, and her symptoms have improved. Her son is with her at the bedside as patient does have some dementia. Her son tells me that she recently followed up with her PCP, Dr. Griffin, and states that patient had a good report. Her PCP believes that her dementia had slightly improved, perhaps related to stable and improved hemoglobin. No medications were changed. Of note, patient tells me that Dr. Carranza increased her diuretics and her potassium supplement at her last visit, and she is now on furosemide a total of 80 mg daily as well as a total of 40 mEq KCl per day, or 20 mEq divided. Patient tells me that she is feeling good and is hopeful that she can be treated with Vidaza today. She has been off treatment now for approximately six to seven weeks. PAST MEDICAL HISTORY 1. History of stroke 2001. 2. DVT 2014. 3. Atrial fibrillation 2010. 4. Hypertension 2007. 5. Right renal infarct 2008. 6. Overactive bladder 2005. 7. Hyperparathyroidism with hypercalcemia. PAST SURGICAL HISTORY 1. Cataract extraction bilaterally. 2. Pacemaker placement 2008. 3. Appendectomy 2008. 4. Cholecystectomy 1993. 5. Hysterectomy with oophorectomy. 6. Left breast biopsy in the past. FAMILY HISTORY Negative for cancer or blood diseases. SOCIAL HISTORY Patient is a . She had four sons and one daughter. 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 Denies any abuse of tobacco, alcohol, or drugs. CURRENT MEDICATIONS 1. Atorvastatin 40 mg daily. 2. Spironolactone/hydrochlorothiazide 25/25 one tablet daily. 3. Xarelto 20 mg daily. 4. Vitamin D 1000 units daily. 5. Calcium carbonate and vitamin D3 chewable tablet, one tablet daily. 6. Anagrelide 0.5 mg orally twice daily x2 weeks after each cycle of Vidaza. 7. Furosemide 80 mg daily. 8. KCl p.o. 20 mEq b.i.d. ALLERGIES No known drug allergies. REVIEW OF SYSTEMS CONSTITUTIONAL: Patient denies any recent fevers, chills, or night sweats. No recent infections. She believes her appetite and weight are stable. HEENT: No tinnitus. No headache. No vision changes. No mouth sores. No dysphagia or odynophagia. RESPIRATORY: Patient has some dyspnea on exertion. No significant cough or sputum production. No hemoptysis. CARDIOVASCULAR: Patient denies any syncope or presyncope. No chest pain. She does have some bilateral lower extremity edema, see Extremities. GASTROINTESTINAL: No abdominal pain. No nausea or vomiting. She has occasional diarrhea, which is manageable. No constipation. No bright red blood per rectum or melena. Appetite is stable. GENITOURINARY: No dysuria or hematuria. MUSCULOSKELETAL: Patient has some back pain. She had worsening diffuse arthralgias reportedly after initiating anagrelide, which have subsided since holding anagrelide. NEUROLOGIC: No headaches. No seizure activity. No numbness or tingling in the hands or feet. Patient does have some difficulty with memory loss secondary to some dementia. HEMATOLOGIC/LYMPHATIC: Patient does report some easy bruising, currently on Xarelto. No bleeding. ENDOCRINE: No heat or cold intolerance. Patient does have some chronic fatigue and generalized weakness. SKIN: She has some reddish coloration to the anterior portion of her bilateral lower extremities. She has chronic bilateral lower extremity edema, which apparently worsened a few weeks ago. This has now improved since increasing her diuretics. PSYCHIATRIC: She denies any severe anxiety, severe depression, suicidal or homicidal ideation. EXTREMITIES: Patient has chronic bilateral lower extremity edema to the knee. The remainder of a 12-point review of systems is performed today and is otherwise negative. PHYSICAL EXAMINATION VITAL SIGNS: Weight 73.7 kg, down from 76.5 kg. T 98.3, P 60, R 17, BP 114/54, oxygen saturation 97% room air. Currently rates pain level "0/10." Currently rates fatigue at "2 to 3/10." GENERAL: In general, this is a pleasant 83-year-old woman who appears well hydrated, well nourished, and is in no acute distress. HEAD: Atraumatic. Normocephalic. EYES: Sclerae anicteric. NECK: Supple. No lymphadenopathy. LUNGS: Clear to auscultation bilaterally. No focal findings. CARDIAC: Regular rate and rhythm. No ectopy. ABDOMEN: Soft, nontender, nondistended. Bowel sounds positive x4. No organomegaly. EXTREMITIES: Patient has 3+ bilateral lower extremity edema to the knee. There is some mild erythema noted to the extremities, but there are no open sores or ulcerations and no weeping. NEUROLOGIC: Patient does have a history of dementia. Patient is currently awake, alert, oriented x3. No focal motor or sensory deficits. MUSCULOSKELETAL: Gait and ambulation are stable. PSYCHIATRIC: Mood and affect are appropriate. LABORATORY CBC today: WBC 4.7, ANC 3.5, hemoglobin 12.1, hematocrit 38.7%, platelets 804,000, previously 716,000 last week on 12/01/18. CMP today: Unremarkable with the exception of mildly elevated BUN at 29, chloride elevated at 108, serum creatinine normal at 0.90. Uric acid mildly elevated today at 8.0, previously 6.9 on 10/20/18. LFTs normal to include AST normal at 19, AST normal at 17, alkaline phosphatase normal at 58, with total bilirubin normal at 0.4. LDH normal at 486. Total protein normal at 6.4 with normal albumin of 3.5. IMPRESSION AND PLAN Patient is an 83-year-old woman with myelodysplastic syndrome, proven by bone marrow aspiration biopsy done August 04, 2017, which revealed myelodysplastic syndrome with 1% blasts and numerous ringed sideroblasts. There were multiple chromosomal abnormalities by cytogenic analysis. 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 Molecular profiling showed pathogenic alteration detected in IDH2, JAK2, KRAS, and SRSF2 genes. Patient started treatment with Vidaza on August 14, 2017. She received 12 courses and developed skin reaction to the subcutaneous injection of Vidaza, so she started treatment with intravenous Vidaza after that. She has had significant rise in her platelet count throughout treatment, and typically this is evident in the second half of her cycle. Her platelet count has risen to above 1,000,000. Her dose of Vidaza was decreased to two days instead of five days, though she still had the same problem with each cycle. We then increased interval between treatments and kept her on two days instead of five days and moved treatment over to every six weeks. At her last visit with Dr. Carranza, her platelet count had noted to improve, though she did develop gross bilateral lower extremity edema. She does have chronic bilateral lower extremity edema, though at that time it worsened. 1. Myelodysplastic syndrome, currently on Vidaza two days every six weeks. Patient is feeling good today. Today's platelet count is 804,000, and she has been off anagrelide since 11/24/18. She really wants to press on for treatment today as she and her son are concerned about time off of treatment and potential for worsening disease. I discussed this with Dr. Carranza by phone today. He is in agreement and is okay to treat patient today; however, he does request that patient reinitiate her anagrelide as recommended during their last visit. 2. Thrombocytosis, most likely due to treatment with Vidaza. Platelet count currently 804,000. Patient will restart anagrelide this evening, and I explained to both the patient and her son that our recommendation is for her to take this as prescribed, 0.5 mg twice daily times two weeks with each cycle of chemotherapy starting day of treatment. She will start this today. After two weeks, she will discontinue and will start that up with each cycle. We discussed this at length, and I feel that patient and her son are aware of our current treatment plan. 3. Bilateral lower extremity edema: Improved, though this has been chronic for patient. This did flare up a few weeks ago, and at that time, her Lasix was increased, as was her potassium supplement. She will continue on her current dose of diuretics and potassium supplement for now and we hope to decrease down if possible. She still has lower extremity edema. 4. History of atrial fibrillation and deep venous thrombosis in 2014: Patient is currently on daily Xarelto and will continue on this. We again reviewed bleeding precautions, and currently she has no signs or symptoms of bleeding other than some easy bruising. She is aware to notify us for any bleeding. 5. Patient will continue to come in weekly for labs, to include CBC and CMP. 6. Patient will continue to check her blood pressure daily due high-dose diuretics. 7. Patient will contact us for any new concerns or complaints. 8. Patient will keep her followup with her medical oncologist, Dr. Carranza, scheduled for 01/13/19. We may certainly see her in the interim if needed. MTDD
[2018-12-09 09:30] VITALS: BP 108/52
[2018-12-09] MEDS: NS(*) 0.9% 100 ML BAG 100 ML IVPB PRN (09:42)
[2018-12-09] MEDS: LIDOCAINE/SOD BICARB 8.4% SYR ID PRN (09:42)
[2018-12-09 10:01] VITALS: BP 102/46
[2018-12-09] MEDS: HEPARIN FLSH (PORT) 500 UN/5ML IVP PRN (10:04)
[2018-12-15] MEDS: LIDOCAINE/SOD BICARB 8.4% SYR ID PRN (09:50)
[2018-12-15] MEDS: HEPARIN FLSH (PORT) 500 UN/5ML IVP PRN (09:50)
[2018-12-15 09:52] VITALS: BP 109/50
[2018-12-15 10:08] LABS: PLATELET COUNT, AUTOMATED 847 K/uL (150-450)
[2018-12-29 09:34] VITALS: BP 139/50
[2018-12-29] MEDS: HEPARIN FLSH (PORT) 500 UN/5ML IVP PRN (09:34)
[2018-12-29] MEDS: LIDOCAINE/SOD BICARB 8.4% SYR ID PRN (09:34)
[2018-12-29 09:58] LABS: PLATELET COUNT, AUTOMATED 1244 K/uL (150-450)
[2019-01-05] MEDS: LIDOCAINE/SOD BICARB 8.4% SYR ID PRN (10:38)
[2019-01-05] MEDS: HEPARIN FLSH (PORT) 500 UN/5ML IVP PRN (10:38)
[2019-01-05 10:40] VITALS: BP 126/86
[2019-01-05 10:49] LABS: PLATELET COUNT, AUTOMATED 1708 K/uL (150-450)
[2019-01-13 08:30] VITALS: BP 145/50
[2019-01-13] MEDS: HEPARIN FLSH (PORT) 500 UN/5ML IVP PRN (08:50)
[2019-01-13] MEDS: LIDOCAINE/SOD BICARB 8.4% SYR ID PRN (08:50)
[2019-01-13 08:53] LABS: PLATELET COUNT, AUTOMATED 887 K/uL (150-450)
--- NOTE | 2019-01-13 20:36 | ONCOLOGY FOLLOW UP NOTE ---
EVENT DATE: January 13, 2019 DIAGNOSES 1. Myelodysplastic syndrome with increased ringed sideroblasts. 2. 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 CHIEF COMPLAINT Patient is here today for followup of her myelodysplastic syndrome, on treatment with Vidaza. ONCOLOGY HISTORY Patient is an 83-year-old, very nice lady who was admitted to the hospital and was found to have pancytopenia. Her CBC showed white count 1.9, hemoglobin 8.6, hematocrit 26.4, platelets 172,000, and MCV 97.4. She had some hematological workup including serum iron which was normal at 90, TIBC was 216, iron saturation 41.7%. Vitamin B12 was more than 1500, and folate level was more than 22.3. Patient was referred for evaluation and management of pancytopenia. Patient had bone marrow aspiration biopsy done on August 04, 2017, and the diagnosis came back positive for myelodysplastic syndrome with no increased blasts. The blast count was only 1%. 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 Megakaryocytes showed patchy increase in some dysplastic features including hyperchromatic forms, abnormal small forms, and abnormal large forms. FISH for MDS is still pending. 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 FISH for analysis was abnormal with 12d-. 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 Molecular profiling testing showed pathogenic alterations detected in the IDH2, JAK2, KRAS, and SRSF2 genes. Patient started treatment with Vidaza subcutaneously on August 14, 2017. HISTORY OF PRESENT ILLNESS Patient is here today for followup of her myelodysplastic syndrome on azacitidine. Patient continues to have a problem with very high platelet count after her Vidaza therapy despite the fact her Vidaza therapy was decreased from five days to two days, and the frequency also prolonged from four weeks to six weeks. Despite that, patient after two weeks started to have platelet count over 1,000,000, and patient is receiving anagrelide for that. She complaining of occasional epistaxis. She has aches in her bones and joints for about two days after her treatment with Vidaza. Patient was prescribed Bumex by her electrician assistant recently with better improvement of her leg swelling. PAST MEDICAL HISTORY 1. History of stroke 2001. 2. DVT 2014. 3. Atrial fibrillation 2010. 4. Hypertension 2007. 5. Right renal infarct 2008. 6. Overactive bladder 2005. 7. Hyperparathyroidism with hypercalcemia. PAST SURGICAL HISTORY 1. Cataract extraction bilaterally. 2. Pacemaker placement 2008. 3. Appendectomy 2008. 4. Cholecystectomy 1993. 5. Hysterectomy with oophorectomy. 6. Left breast biopsy in the past. FAMILY HISTORY Negative for cancer or blood diseases. SOCIAL HISTORY Patient is a . She had four sons and one daughter. 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. Denies any abuse of tobacco, alcohol, or drugs. CURRENT MEDICATIONS 1. Atorvastatin 40 mg daily. 2. Spironolactone/hydrochlorothiazide 25/25 one tablet daily. 3. Xarelto 20 mg daily. 4. Vitamin D 1000 units daily. 5. Calcium carbonate and vitamin D3 chewable tablet, one tablet daily. 6. Anagrelide 0.5 mg orally twice daily. ALLERGIES No known drug allergies. REVIEW OF SYSTEMS CONSTITUTIONAL: No appetite or weight change. No fever, chills, or sweating. No recent infection. HEENT: Ears: No tinnitus or hearing problem. Nose: No nasal discharge. She has occasional epistaxis. Throat: No sore throat or mouth ulcers. Eyes: No diplopia or visual changes. RESPIRATORY: No shortness of breath. No cough, expectoration, or hemoptysis. CARDIOVASCULAR: No chest pain, orthopnea, or paroxysmal nocturnal dyspnea (PND). No edema. No palpitations. GASTROINTESTINAL: No nausea or vomiting. No diarrhea or constipation. No change in bowel movements. No heartburn or swallowing difficulties. No abdominal pain. No jaundice. No hematemesis, melena, or rectal bleeding. GENITOURINARY: No hematuria or dysuria. MUSCULOSKELETAL: She has aches in her joints and bones for two days after Vidaza therapy. NEUROLOGIC: No tingling or numbness in the hands or feet. No headaches or convulsions. HEMATOLOGIC/LYMPHATIC: No bleeding or easy bruising. No weakness or fatigue. No enlarged lymph nodes. SKIN: No skin rash or lumps. PSYCHIATRIC: No anxiety or depression. PHYSICAL EXAMINATION GENERAL: Looks stable. Well developed, well nourished, and in no acute distress. VITAL SIGNS: Blood pressure 145/50, pulse 64 per minute, respirations 18 per minute, temperature 96.6, pulse ox 93% on room air. HEENT: Head: Atraumatic. No sinus tenderness to palpation. Eyes: No icterus or conjunctivitis. Mouth and Throat: No oral thrush or mucositis. NECK: Supple. No cervical or supraclavicular lymphadenopathy. LUNGS: Clear to auscultation and percussion bilaterally. HEART: Regular rate and rhythm. No gallops, murmurs, clicks, or rubs. ABDOMEN: Soft and lax. No tenderness. No hepatosplenomegaly. No masses. EXTREMITIES: No cyanosis, clubbing, or edema. LYMPHATICS: No peripheral lymphadenopathy. NEUROLOGIC: Conscious, alert, and oriented times three. No focal motor or sensory deficits. PSYCHIATRIC: Mood and affect appear normal. SKIN: No skin rash, bruise, or purpuric eruption. DIAGNOSTIC DATA CBC on the December showed white count 5.6, hemoglobin 12, hematocrit 38.6, platelets 1,708,000. Her CBC for today is pending. Chem panel is normal except BUN is 35. ASSESSMENT 1. Myelodysplastic syndrome proven by bone marrow aspiration biopsy done August 04, 2017, which revealed myelodysplastic syndrome with 1% blasts and numerous ringed sideroblasts. There were multiple chromosomal abnormalities by cytogenic analysis. 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 Molecular profiling showed pathogenic alteration detected in IDH2, JAK2, KRAS, and SRSF2 genes. Patient started treatment with Vidaza August 14, 2017. She received so far 14 courses, and she is due on the January to start her 15th cycle. Patient developed a very high platelet count with the treatment with Vidaza, and her platelet count was over 1,000,000 after two weeks of therapy, for which the patient is receiving also anagrelide to control her platelet count. She is currently taking two days of Vidaza instead of five days and every six weeks instead of every four weeks. Despite that, she continues to have the very high platelet count. On the 18 of January if her platelet count is above the normal range, I am planning to give her only one day of Vidaza instead of two days every six weeks, and if she continues to have the platelets, I may also increase the frequency to two months instead of six weeks. I will see her in four weeks from now with CBC and chemistry panel, which will be checked every week during her therapy. 2. 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 Patient receiving anagrelide for platelet count above 1,000,000. She usually started the anagrelide two weeks after she started her Vidaza therapy. PLAN 1. Continue followup. 2. Continue Vidaza as per schedule. 3. CBC and chem panel to be checked weekly. 4. Patient to return in six weeks with CBC and chem panel. 5. Consider anagrelide two weeks after starting Vidaza to control her platelet count. 6. Patient to contact us for any new concerns or complaints. MTDD
[2019-01-18 09:37] VITALS: BP 108/48
[2019-01-18 09:55] LABS: PLATELET COUNT, AUTOMATED 947 K/uL (150-450)
[2019-01-18] MEDS: LIDOCAINE/SOD BICARB 8.4% SYR ID PRN (09:55)
[2019-01-18] MEDS: HEPARIN FLSH (PORT) 500 UN/5ML IVP PRN (10:34)
[~2019-01-26 12:55] MED LIST changes: +ALTEPLASE RECOMB 2 MG VIAL IVP PRN; +AZACITIDINE IVPB ONE; +DEXTROSE 5%(*) 100 ML BAG 100 ML IVPB PRN; +NS 0.9% IVPB ONE; +NS(*) 0.9% 250 ML BAG 250 ML IVPB PRN; +ONDANSETRON 4 MG ODT TABDP SL PRN; +WATER FOR INJ,STERILE 20 ML IVP PRN
[2019-01-26 13:23] VITALS: BP 106/84
[2019-01-26] MEDS: LIDOCAINE/SOD BICARB 8.4% SYR ID PRN (13:30)
[2019-01-26] MEDS: HEPARIN FLSH (PORT) 500 UN/5ML IVP PRN (14:12)
== END 2019-01-31 ==
LOC: ONC 12:55
PROVIDERS: ATTEND Internal Medicine Hematology
DX: D46.9 Myelodysplastic syndrome, unspecified (principal); D47.3 Essential (hemorrhagic) thrombocythemia; R60.0 Localized edema; R06.02 Shortness of breath
CPT/HCPCS: 36591; 83615; 83735; 84100; 84550; 85025; 85027; G0463; J1642; J7050; J9025; 82040; 82247; 82310; 82374; 82435; 82565; 82947; 84075; 84132; 84155; 84295; 84450; 84460; 84520; 96365; 99212